=== PATIENT | male | born 1960 | race Caucasian/White ===

== ENCOUNTER 2019-07-04 17:42 | Outpatient (CLI) | payer SELFPAY ==
--- NOTE | 2019-07-04 | XR_ITS ---
WS: [id number] KNEE LEFT TECHNIQUE: 3 views of the left knee CLINICAL INFORMATION: TWISTED KNEE, HEARD POP, PAIN COMPARISON: None. FINDINGS: Left knee is normal in appearance. No evidence of acute fracture dislocation. Small effusion. Hypertr ophic patella. Vascular calcification. XR/XR knee LT 3V* [id number] IMPRESSION: Soft tissue edema with small suprapatellar effusion. No acute fractures
== END 2019-07-04 17:43 | disposition home or self-care (01) ==
PROVIDERS: Family Provider Family Medicine; PCP Family Medicine; Visit Provider Nurse Practitioner Family
DX: Z01.89 Encounter for other specified special examinations (principal)

== ENCOUNTER 2019-09-18 15:45 | Emergency (ER) | payer MEDICAID, SELFPAY | END 2019-09-18 20:21 | disposition admitted as inpatient to this hospital (09) | LOC: ER 09-27 19:25 | PROVIDERS: Emergency Provider Family Medicine; PCP Family Medicine | DX: F10.230 Alcohol dependence with withdrawal, uncomplicated (principal); Y90.7 Blood alcohol level of 200-239 mg/100 ml; J44.9 Chronic obstructive pulmonary disease, unspecified; I25.10 Atherosclerotic heart disease of native coronary artery without angina pectoris; Z86.73 Personal history of transient ischemic attack (TIA), and cerebral infarction without residual deficits; I10 Essential (primary) hypertension; F17.210 Nicotine dependence, cigarettes, uncomplicated | CPT/HCPCS: 12345; 36415; 80053; 80307; 84484; 85025; 96361; 96374; 96375; 99284; 99285; J7030 ==

== ENCOUNTER 2019-09-18 15:45 | Inpatient (IN) | payer MEDICAID, SELFPAY ==
[2019-09-18] VITALS (14 sets, daily range): BP systolic 124–187; BP diastolic 84–114; PULSE 83–115; RESP 14–30; TEMP 36.6–37.1; O2SAT 93–96; BMI 22.6
--- NOTE | 2019-09-18 16:20 | W.ED.PSYCH ---
Documented by User: Drew Hernandez DO 09/19/19 15:37 HPI - Psych General: Chief Complaint: Alcohol Stated Complaint: etoh/SI Time Seen by Provider: 09/18/19 15:46 History of Present Illness: HPI Narrative: 59-year-old male comes the emergency room by EMS he is acutely intoxicated his family insisted that he come in when I asked him why he was here he said he does not really know who was brought in by ambulance at his family's demand. He states he just wants to give up. He does admit to taking several prescription medications not prescribed to him in an effort to make him golf self go to sleep. However he denies being suicidal. When asked him what he would like for us to do today he states he like a few more pills so he can just go to sleep forever. He admits to drinking heavily drinks up to 3 to 4 pints per day. He states and that is actually a decrease for him. He is upset largely because his brother and sister recently diagnosed with cancer. Family was here in the lobby filling out affidavits. MD complaint: suicidal ideation and other (Alcohol abuse) Onset (ago): year(s) Duration: constant History of same: Yes Relieving factors: none Exacerbating factors: none Context: recent alcohol abuse Associated psychiatric symptoms: depression and suicidal ideation Associated symptoms: Reports depression and suicidal ideation; Deny auditory hallucinations, visual hallucinations, delusions, homicidal ideation or racing thoughts Treatments prior to arrival: none If self harm: admits thoughts of self harm, has plan, has acted on plan and intentional overdose Details of plan: Took several doses of Xanax hydroxyzine and sertraline and Prozac and attempt to harm himself stating he wishes to take more. Review of Systems Const: Denies: fever(s), chills, body aches, change in appetite, fatigue or malaise ENMT: Denies: throat pain, ear or mastoid pain, nasal discharge or nasal congestion Card: Denies: chest pain, edema, dyspnea on exertion or orthopnea Resp: Reports: productive cough and other (Per the patient his cough is chronic and is at his baseline.); Denies: dyspnea or non-productive cough GI: Denies: abdominal pain, nausea, vomiting, hematemesis, coffee ground emesis, diarrhea, constipation, bloating, hematochezia or melena : Denies: flank pain, dysuria, urinary frequency or urinary urgency Skin/Breast: Denies: rash or pruritus Psych: Reports: depression and suicidal ideation; Denies: visual hallucinations, auditory hallucinations or homicidal ideation PFSH ED PFSH: Medical History COPD (chronic obstructive pulmonary disease) Coronary artery disease CVA (cerebral vascular accident) Residual left-sided weakness Hypertension Surgical History Post PTCA Social History Smoking and tobacco status: current every day smoker Alcohol intake: current Alcohol intake frequency: 3 or more drinks per day Alcohol type: hard liquor Current gender identity: Male Physical Exam Const: COMMON NORMALS: no acute distress GENERAL APPEARANCE: cooperative and comfortable ORIENTATION/CONSCIOUSNESS: Yes awake, Yes oriented to person, Yes oriented to place and Yes oriented to time HENMT: COMMON NORMALS: normocephalic, atraumatic, external ears normal, EAC's normal, TM's normal bilaterally and Normal nasal mucous membranes and turbinates present HEAD & SCALP: normocephalic and atraumatic NOSE: Normal nasal mucous membranes and turbinates present EXTERNAL EAR: Yes external ears normal EXTERNAL AUDITORY CANAL: EAC's normal TYMPANIC MEMBRANE: TM's normal bilaterally Eye: COMMON NORMALS: Equal, round and reactive pupils present, EOMs intact bilaterally, conjunctivae normal and no scleral icterus CONJUNCTIVA: Yes conjunctivae normal PUPIL: Yes Equal, round and reactive pupils present Neck/C-Spine: COMMON NORMALS: full ROM, no lymphadenopathy, supple and no JVD Lymph: LYMPHATIC: no lymphadenopathy noted and no lymphedema noted Resp: COMMON NORMALS: normal respiratory effort, No retractions, No use of accessory muscles and clear to auscultation bilaterally AUSCULTATION: clear to auscultation bilaterally Cardio: COMMON NORMALS: no JVD, regular rate, regular rhythm and No murmurs present (Cardio) RATE: regular rate RHYTHM: regular rhythm GI: COMMON NORMALS: Soft to palpation and No hepatosplenomegaly present AUSCULTATION: Yes normoactive bowel sounds PALPATION: Yes Soft to palpation, No Tenderness to palpation present (GI), No Guarding due to palpation present (GI) and Yes No hepatosplenomegaly present Extremity: COMMON NORMALS: normal to inspection, capillary refill normal, no clubbing, cyanosis or edema, no calf tenderness and no pedal edema Neuro: SENSORIUM/ORIENTATION: Yes oriented to person, Yes oriented to place and Yes oriented to time Psych: THOUGHT CONTENT: No delusions Skin: COMMON NORMALS: no rashes or lesions noted GENERAL SKIN EXAM: no rashes or lesions noted MDM - Psych MDM Narrative: Medical decision making narrative: Discussed findings with the patient he is expressing intent to harm himself and is quite despondent. He does present to risk himself he is awake and alert at this point he is improving from his acute intoxication. He is becoming hypertensive he was ordered clonidine and hydralazine have discussed with psychiatry. We will admit him. Lab Data: Labs: Lab Results 09/18/19 09/18/19 09/18/19 Range/Units 16:23 16:23 16:23 WBC 4.4 (4.0-10.0) 10^3/ uL RBC 4.17 (4.1-5.3) 10^6/u L Hgb 11.7 (11.7-16.6) g/dL Hct 38.0 L (42.0-52.0) % MCV 91.1 (80-94) fL MCH 28.1 (28.0-34.0) pg MCHC 30.8 (30.0-36.0) g/dL RDW 18.1 H (12.1-15.1) % Plt Count 187 (130-400) 10^3/c mm MPV 9.5 (7.4-10.4) fL Neut % (Auto) 70.7 % Lymph % (Auto) 19.1 % [place] % (Auto) 8.0 % Eos % (Auto) 1.8 % Baso % (Auto) 0.2 % Neut # (Auto) 3.1 (1.8-7.7) 10^3/u L Lymph # (Auto) 0.8 (0.8-4.8) 10^3/u L [place] # (Auto) 0.4 (0.2-0.9) 10^3/u L Eos # (Auto) 0.1 (0.0-0.8) 10^3/u L Baso # (Auto) 0.0 (0.0-0.1) 10^3/u L Nucleated RBC % (a uto) 0 % Nucleated RBCs # 0.0 /100WBC Sodium 147 H (136-145) mmol/L Potassium 3.5 (3.5-5.1) mmol/L Chloride 105 (98-107) mmol/L Carbon Dioxide 27 (22-29) mmol/L Anion Gap 18.5 (5-19) BUN 7 (6-20) mg/dL Creatinine 0.7 (0.7-1.2) mg/dL GFR Calculation 115.4 (90-130) mL/min Glucose 108 (65-115) mg/dL Calculated Osmolal ity 300 H (285-295) mOsm/k g Calcium 8.2 L (8.5-10.5) mg/dL Total Bilirubin 0.2 (0.15-1.2) mg/dL AST 53 H (0-40) U/L ALT 27 (0-41) U/L Alkaline Phosphata se 131 H (40-130) IU/L Troponin T Baselin e 13 (0-15) ng/mL Total Protein 6.8 (6.6-8.7) g/dL Albumin 3.7 (3.5-5.2) g/dL Globulin 3.1 (1.3-4.6) g/dL Salicylates < 0.3 L (3-10) mg/dL Acetaminophen < 5.0 L (10-30) ug/mL Ethyl Alcohol 209 H (0-10) mg/dL Discharge Plan Discharge Patient Disposition: Admitted As Inpatient Admit Provider: Willi Márquez Clinical Impression: Alcohol withdrawal syndrome Qualifiers: Complication of substance-induced condition: uncomplicated Qualified Code(s): F10.230 - Alcohol dependence with withdrawal, uncomplicated Condition: Stable Referrals: Donald Dominguez MD [Primary Care Provider] - Discharge Date/Time: 09/18/19 20:21 Coding Level of Care Code ED Account Support Rep for Chg Fwd Exam Comprehensive Documented by User: Daiana Acosta MD 09/18/19 19:28 HPI - Psych General: Chief Complaint: Alcohol Stated Complaint: etoh/SI Time Seen by Provider: 09/18/19 15:46 PFSH ED PFSH: Medical History COPD (chronic obstructive pulmonary disease) Coronary artery disease CVA (cerebral vascular accident) Residual left-sided weakness Hypertension Surgical History Post PTCA Social History Smoking and tobacco status: current every day smoker Alcohol intake: current Alcohol intake frequency: 3 or more drinks per day Alcohol type: hard liquor Current gender identity: Male MDM - Psych MDM Narrative: Medical decision making narrative: I took patient over from Dr. Lei. Patient originally was planned to be admitted to the psychiatric unit but he started to become hypertensive along with tachycardic and had vomiting. I spoke to patient he does have a history of alcohol withdrawals. I gave patient 2 mg Ativan and he improved and I spoke to hospitalist Dr. Cosme and will admit to the ICU at this time. Lab Data: Labs: Lab Results 09/18/19 09/18/19 09/18/19 Range/Units 16:23 16:23 16:23 WBC 4.4 (4.0-10.0) 10^3/ uL RBC 4.17 (4.1-5.3) 10^6/u L Hgb 11.7 (11.7-16.6) g/dL Hct 38.0 L (42.0-52.0) % MCV 91.1 (80-94) fL MCH 28.1 (28.0-34.0) pg MCHC 30.8 (30.0-36.0) g/dL RDW 18.1 H (12.1-15.1) % Plt Count 187 (130-400) 10^3/c mm MPV 9.5 (7.4-10.4) fL Neut % (Auto) 70.7 % Lymph % (Auto) 19.1 % [place] % (Auto) 8.0 % Eos % (Auto) 1.8 % Baso % (Auto) 0.2 % Neut # (Auto) 3.1 (1.8-7.7) 10^3/u L Lymph # (Auto) 0.8 (0.8-4.8) 10^3/u L [place] # (Auto) 0.4 (0.2-0.9) 10^3/u L Eos # (Auto) 0.1 (0.0-0.8) 10^3/u L Baso # (Auto) 0.0 (0.0-0.1) 10^3/u L Nucleated RBC % (a uto) 0 % Nucleated RBCs # 0.0 /100WBC Sodium 147 H (136-145) mmol/L Potassium 3.5 (3.5-5.1) mmol/L Chloride 105 (98-107) mmol/L Carbon Dioxide 27 (22-29) mmol/L Anion Gap 18.5 (5-19) BUN 7 (6-20) mg/dL Creatinine 0.7 (0.7-1.2) mg/dL GFR Calculation 115.4 (90-130) mL/min Glucose 108 (65-115) mg/dL Calculated Osmolal ity 300 H (285-295) mOsm/k g Calcium 8.2 L (8.5-10.5) mg/dL Total Bilirubin 0.2 (0.15-1.2) mg/dL AST 53 H (0-40) U/L ALT 27 (0-41) U/L Alkaline Phosphata se 131 H (40-130) IU/L Troponin T Baselin e 13 (0-15) ng/mL Total Protein 6.8 (6.6-8.7) g/dL Albumin 3.7 (3.5-5.2) g/dL Globulin 3.1 (1.3-4.6) g/dL Salicylates < 0.3 L (3-10) mg/dL Acetaminophen < 5.0 L (10-30) ug/mL Ethyl Alcohol 209 H (0-10) mg/dL Discharge Plan Discharge Patient Disposition: Admitted As Inpatient Admit Provider: Willi Márqeuz Clinical Impression: Alcohol withdrawal syndrome Qualifiers: Complication of substance-induced condition: uncomplicated Qualified Code(s): F10.230 - Alcohol dependence with withdrawal, uncomplicated Condition: Stable Referrals: Donald Dominguez MD [Primary Care Provider] - Discharge Date/Time: 09/18/19 20:21 Coding Level of Care Code ED Account Support Rep for [facility] Fwd Exam Comprehensive
[2019-09-18 16:31] LABS: Basophils % 0.2 %; Eosinophils # 0.1 10^3/uL (0.0-0.8); Eosinophils % 1.8 %; Hemoglobin 11.7 g/dL (11.7-16.6); Lymphocytes # 0.8 10^3/uL (0.8-4.8); Lymphocytes % 19.1 %; Mean Corpuscular HGB Conc 30.8 g/dL (30.0-36.0); Mean Corpuscular Hemoglobin 28.1 pg (28.0-34.0); Mean Corpuscular Volume 91.1 fL (80-94); Mean Platelet Volume 9.5 fL (7.4-10.4); Monocytes # 0.4 10^3/uL (0.2-0.9); Neutrophils # 3.1 10^3/uL (1.8-7.7); Neutrophils % 70.7 %; Nucleated Red Blood Cells % 0 %; Platelet Count 187 10^3/cmm (130-400); Red Blood Count 4.17 10^6/uL (4.1-5.3); Red Cell Distribution Width 18.1 % (12.1-15.1); White Blood Count 4.4 10^3/uL (4.0-10.0)
[2019-09-18 16:45] LABS: Troponin(5th) Baseline 13 ng/mL (0-15)
[2019-09-18] MEDS: sodium chloride 0.9% 1,000 ML 999 ML IV (16:49)
[2019-09-18 17:08] LABS: Alanine Aminotransferase 27 U/L (0-41); Albumin Level 3.7 g/dL (3.5-5.2); Alcohol Level 209 mg/dL (0-10); Alkaline Phosphatase 131 IU/L (40-130); Anion Gap 18.5 (5-19); Aspartate Amino Transferase 53 U/L (0-40); Blood Urea Nitrogen 7 mg/dL (6-20); Calcium 8.2 mg/dL (8.5-10.5); Carbon Dioxide 27 mmol/L (22-29); Chloride 105 mmol/L (98-107); Globulin 3.1 g/dL (1.3-4.6); Glomerular Filtration Rate 115.4 mL/min (90-130); Glucose 108 mg/dL (65-115); Osmolality Calculated 300 mOsm/kg (285-295); Potassium 3.5 mmol/L (3.5-5.1); Sodium 147 mmol/L (136-145); Total Bilirubin 0.2 mg/dL (0.15-1.2); Total Protein 6.8 g/dL (6.6-8.7)
[2019-09-18 17:26] LABS: Acetaminophen < 5.0 ug/mL (10-30); Salicylate < 0.3 mg/dL (3-10)
--- NOTE | 2019-09-18 18:16 | ECG_ITS ---
Measurements Intervals [place] Rate: 87 P: 73 MD: 148 QRS: 40 QRSD: 89 T: 54 QT: 373 QTc: 450 SINUS RHYTHM Compared to ECG 12/14/2018 01:37:02 No significant changes Electronically Signed On 09-18-2019 20:56:16 CDT by Nancy Jarquin M.D. [id number]
[2019-09-18] MEDS: hyDRALAzine 20 mg/mL INJ 1 mL IVP (18:22)
[2019-09-18 18:32] LABS: Troponin 5 2HR 12.97 ng/mL (0-15); Troponin 5 2HR Delta -0.03 ABS# (0-10)
[2019-09-18] MEDS: LORazepam 2 mg/mL INJ 1 mL IVP ×2 (18:34→19:04)
--- NOTE | 2019-09-18 19:06 | PC.NURSE ---
PATIENT BEGAN TO GET SICK,HR INCREASED AND STARTED TO VOMIT, EMD INFORMED AND ORDERS RECEIVED
--- NOTE | 2019-09-18 21:16 | P.HP_ITS ---
Providers/Chief Complaint Admitting Physician: Willi Márquez Primary Care Provider: Donald Dominguez MD Chief Complaint: etoh History of Present Illness Oscar Baumann is a 59 year old male with PMh anxiety, alcohol abuse disorder recently care established with [facility] with increasing concerns from family about suicidal behavior. he was brought to ER today with reported history of int entional overdose wherein he took several doses of Xanax hydroxyzine and sertraline and Prozac and attempt to harm himself. above history obtained by review of ER notes. He is currently sedated aftre having received 4mg Ativan in the ER and is unable/unwilling to provide further details. Listed family number goes to [facility]. He was originally planned for admission to NPU, but while in the Er started exhibiting signs of withdrawal after being acutely intoxicated earlier. he was noted to have tremors and elevated BP > SBP 180 for hwich he received ativan, hydralazine and clonidine with improvement. Diagnostics in ER notable for alcohol level 209, Na 147 , AST 53 and AL 131 Review of Systems General: Reports: 10 or more systems reviewed and unremarkable except in HPI and below Const: Denies: fever(s), chills or body aches Eyes: Denies: change in vision, blurry vision or photophobia ENMT: Reports: hoarseness; Denies: throat pain, enlarged tonsils, odynophagia or nasal congestion Card: Denies: chest pain, palpitations, irregular heart rhythm, edema, swelling of feet/ankles, lightheadedness, pre-syncope, dyspnea on exertion or orthopnea Resp: Denies: dyspnea, productive cough, non-productive cough, wheezing, stridor, pain on inspiration, change in phlegm color, hemoptysis or chest congestion GI: Denies: abdominal pain, nausea, vomiting, hematemesis, coffee ground emesis, dysphagia, heartburn, diarrhea, constipation, GI cramping, change in stool character, hematochezia or melena : Denies: flank pain, dysuria, urinary frequency, urinary urgency, urinary hesitancy or hematuria Musc: Denies: neck pain, back pain, extremity pain, joint swelling, joint warmth or deformity Neuro: Denies: headache(s), numbness in extremities, weakness in extremities, sensory changes, difficulty walking, frequent falls, dizziness, vertigo, behavioral changes, Slurred speech present or seizure-like activity Psych: Denies: anxiety, depression, suicidal ideation or homicidal ideation Endo: Denies: polyuria, polydipsia, tired all the time, cold intolerance or hot flashes Kenny/Lymph: Denies: easy bruising or easy bleeding Medications/Allergies Home Medications Medication Instructions Recorded Confirmed Last Taken Type aspirin 81 mg tablet,delayed 81 mg PO QDAY 90 Days #90 tab 05/29/19 09/18/19 Unknown Rx release Allergies Allergy/AdvReac Type Severity Reaction Status Date / Time hydromorphone [From Dilaudid] Allergy hallucinati Verified 05/29/19 10:57 on PFSH Acute PFSH: Medical History COPD (chronic obstructive pulmonary disease) Coronary artery disease CVA (cerebral vascular accident) Residual left-sided weakness Hypertension Surgical History Post PTCA Social History Smoking and tobacco status: current every day smoker Alcohol intake: current Alcohol intake frequency: 3 or more drinks per day Alcohol type: hard liquor Alcohol use comment: Patient drinks several pints per day he estimated 3 to 4 pints per day stating that is actually having cut down on what he used to drink Current gender identity: Male Vitals/I&O/Wt Last Vital Signs Temp 98.8 F 09/18/19 21:02 Pulse 99 09/18/19 20:45 Resp 20 H 09/18/19 20:45 BP 150/94 09/18/19 20:45 Pulse Ox 95 09/18/19 20:45 Weight last 48 hrs Weight 63.503 kg Physical Exam Narrative: EXAM NARRATIVE: GEN: Awake on calling name, otherwise calm and preferring to sleep CVS: S1S2 N RS: CTA B/L Abd: Soft, nt/nd , bs+ POLYTECHNIC REGISTRAR: no focal neuro deficits EXt: no rashes, petechiae Data : 09/18/19 16:23 09/18/19 16:23 A&P Assessment and plan (1) Alcohol withdrawal syndrome: Status: Acute Qualifiers: Complication of substance-induced condition: uncomplicated Qualified Code(s): F10.230 - Alcohol dependence with withdrawal, uncomplicated (2) Coronary artery disease: Status: Acute (3) Hypertension: Status: Acute (4) COPD (chronic obstructive pulmonary disease): Status: Acute (5) Alcohol intoxication: Status: Acute (6) Suicide attempt: Status: Acute Additional A&P Information Admit to ICU for alcohol withdrawal -Initially presnetd with acute alcohol intoxcation, now noted to have signs of withdrawal in the ED with HTN, tremors, agitation - will monitor closely for development of serotonin syndrome given h/o taking multiple medications earlier today - continuous telemetery and qtc monitoring , last being 433 msec -continuous pulse ox, aspiration, sizure and fall precautions - D51/2 NS with added thiamine and multivitamin - NPO for now except meds and ice chips - CIWA checks per protocol, ativan prn, also started librium standing dose which can be tapered during admission - NPU consult and transfer when stable for attempted suicide, on 96 hr hold. Sitter at bedside - hydralazine prn for HTN for now. Listed PMH states patient has HTN, however unable to see if he is on any medications at home. Full code DVt ppx: heparin Attestations Medical Necessity Statement*: anticipate >2midnight admission for management of alcohol withdrawal, 96 hr hold for suicide attempt Coding Level of Care Code Acute Casino Attendant for momo Villegas Diagnoses Alcohol withdrawal syndrome F10.230 Complication of substance-induced condition: uncomplicated Coronary artery disease I25.10 Hypertension I10 COPD (chronic obstructive pulmonary disease) J44.9 Alcohol intoxication F10.929 Suicide attempt T14.91XA
[2019-09-18] MEDS: chlordiazePOXIDE 25 mg Capsule 50 MG PO (21:47)
[2019-09-18] MEDS: hyDRALAzine 20 mg/mL INJ 1 mL 10 MG IVP (21:48)
[2019-09-18] MEDS: dextrose 5%-sod chloride 0.45% 1,000 ML 75 ML IV (21:48)
[2019-09-18] MEDS: heparin 5,000 unit/mL INJ 1 mL 5000 UNIT SUBCUT (21:48)
[2019-09-18] MEDS: thiamine 100 mg Tablet PO (21:48)
--- NOTE | 2019-09-18 22:16 | ECG_ITS ---
Measurements Intervals [place] Rate: 78 P: 64 [place]: 146 QRS: 44 QRSD: 86 T: 54 QT: 379 QTc: 433 SINUS RHYTHM Compared to ECG 12/14/2018 01:37:02 No significant changes Electronically Signed On 09-18-2019 20:56:00 CDT by Nancy Jarquin M.D. [id number]
[2019-09-18 22:54] LABS: Troponin 5 6HR 28.44 ng/mL (0-15)
[2019-09-18 22:56] LABS: Troponin 5 6HR Delta 15.44 ng/L (0-12)
[2019-09-19] VITALS (34 sets, daily range): BP systolic 89–205; BP diastolic 58–128; PULSE 63–107; RESP 16–25; TEMP 36.7–36.9; O2SAT 93–99
--- NOTE | 2019-09-19 02:20 | PC.NURSE ---
dr hammond notified of blood pressure being elevated, >180 sys. It was not time for hydralizine, dr gave order for po amlodipine 10 mg.
[2019-09-19] MEDS: chlordiazePOXIDE 25 mg Capsule 50 MG PO ×2 (02:52→09:33)
[2019-09-19] MEDS: amlodipine 5 mg Tablet 10 MG PO (02:52)
--- NOTE | 2019-09-19 05:03 | PC.NURSE ---
dr hammond was notified of increase in troponin.
[2019-09-19 05:33] LABS: Basophils % 0.4 %; Eosinophils # 0.1 10^3/uL (0.0-0.8); Eosinophils % 1.3 %; Hemoglobin 11.2 g/dL (11.7-16.6); Lymphocytes % 21.7 %; Mean Corpuscular HGB Conc 31.1 g/dL (30.0-36.0); Mean Corpuscular Hemoglobin 27.8 pg (28.0-34.0); Mean Corpuscular Volume 89.3 fL (80-94); Mean Platelet Volume 10.6 fL (7.4-10.4); Monocytes # 0.3 10^3/uL (0.2-0.9); Monocytes % 6.7 %; Neutrophils # 3.1 10^3/uL (1.8-7.7); Neutrophils % 69.5 %; Nucleated Red Blood Cells % 0 %; Platelet Count 175 10^3/cmm (130-400); Red Blood Count 4.03 10^6/uL (4.1-5.3); Red Cell Distribution Width 17.8 % (12.1-15.1); White Blood Count 4.5 10^3/uL (4.0-10.0)
[2019-09-19 05:55] LABS: INR 1.09 (0.8-1.2)
[2019-09-19 05:58] LABS: Alanine Aminotransferase 24 U/L (0-41); Albumin Level 3.4 g/dL (3.5-5.2); Alkaline Phosphatase 134 IU/L (40-130); Anion Gap 15.2 (5-19); Aspartate Amino Transferase 44 U/L (0-40); Blood Urea Nitrogen 8 mg/dL (6-20); Calcium 8.6 mg/dL (8.5-10.5); Carbon Dioxide 26 mmol/L (22-29); Chloride 100 mmol/L (98-107); Globulin 3.5 g/dL (1.3-4.6); Glomerular Filtration Rate 170.2 mL/min (90-130); Glucose 111 mg/dL (65-115); Osmolality Calculated 283 mOsm/kg (285-295); Potassium 3.2 mmol/L (3.5-5.1); Sodium 138 mmol/L (136-145); Total Bilirubin 0.4 mg/dL (0.15-1.2); Total Protein 6.9 g/dL (6.6-8.7)
--- NOTE | 2019-09-19 06:15 | PC.NURSE ---
SHIFT SUMMARY PT HAS REMAINED ALERT AND ORIENTATED. AT TIMES CONFUSED. PT HAS NOT NEEDED ATIVAN PER CIWA. PT HAS RESTED AND AWAKENED TO VERBAL STIMULUS. SITTER REMAINS AT BEDSIDE. IV REMAINS PATENT. PT HAS HAD NO COMPLAINTS. DR GOULD GAVE ORDER TO PUT IN BREATHING TXS, PT HAS NOT NEEDED ANY THUS FAR. PT HAS WHEEZES AT TIMES.
[2019-09-19 06:33] LABS: Troponin(5th) Baseline 136 ng/mL (0-15)
--- NOTE | 2019-09-19 06:46 | PC.NURSE ---
dr hammond notified of troponin
--- NOTE | 2019-09-19 06:51 | PC.NURSE ---
dr hammond gave order for 325mg asa for 136 troponin.
--- NOTE | 2019-09-19 07:03 | PC.NURSE ---
dr hammond also ordered a ekg to be taken on pt since increase in troponin.
--- NOTE | 2019-09-19 07:05 | ECG_ITS ---
Measurements Intervals [place] Rate: 84 P: 77 [place]: 143 QRS: 70 QRSD: 84 T: 73 QT: 376 QTc: 447 SINUS RHYTHM Compared to ECG 09/18/2019 18:04:25 No significant changes Electronically Signed On 09-19-2019 15:43:40 CDT by Nahid Jimenez M.D. [email or web address]
[2019-09-19] MEDS: aspirin 325 mg Tablet PO (07:06)
[2019-09-19] MEDS: hyDRALAzine 20 mg/mL INJ 1 mL 10 MG IVP (07:32)
[2019-09-19 07:55] LABS: Chol HDL Ratio 6.44 mg/dL (1.0-5.00); Cholesterol 206 mg/dL (0-200); HDL Cholesterol 32 mg/dL (60-100); LDL Cholesterol Calculated 145 mg/dL (50-129); LDL HDL Ratio 4.53 RATIO (0.00-3.22); Triglycerides 143 mg/dL (0-150)
[2019-09-19 08:06] LABS: Troponin 5 2HR 147.5 ng/mL (0-15); Troponin 5 2HR Delta 11.5 ABS# (0-10)
[2019-09-19] MEDS: folic acid 1 mg Tablet PO (09:32)
[2019-09-19] MEDS: multivitamin therapeutic Tablet 1 TAB PO (09:33)
[2019-09-19] MEDS: thiamine 100 mg Tablet PO (09:33)
[2019-09-19] MEDS: heparin 5,000 unit/mL INJ 1 mL 5000 UNIT SUBCUT ×2 (09:33→18:28)
[2019-09-19] MEDS: dextrose 5%-sod chloride 0.45% 1,000 ML 75 ML IV (09:36)
[2019-09-19] MEDS: isosorbide mononitrate ER 30 mg Tablet PO (10:54)
[2019-09-19] MEDS: lisinopril 20 mg Tablet PO (10:54)
[2019-09-19] MEDS: clopidogrel 75 mg Tablet PO (10:54)
[2019-09-19] MEDS: metoprolol tartrate 25 mg Tablet PO (10:54)
--- NOTE | 2019-09-19 11:15 | P.PN_ITS ---
Vitals/I&O/Wt Last Vital Signs Temp 98.4 F 09/19/19 05:37 Pulse 93 09/19/19 04:00 Resp 25 H 09/19/19 00:30 BP 178/111 09/19/19 04:00 Pulse Ox 97 09/19/19 04:00 09/18/19 09/19/19 09/19/19 22:59 06:59 14:59 Intake Total 120 / 120 300 / 420 885 / 885 Output Total 300 / 300 300 / 600 780 / 780 Balance -180 / -180 0 / -180 105 / 105 Weight last 48 hrs Weight 63.503 kg Data : 09/19/19 05:00 09/19/19 05:00 A&P Assessment and plan (1) Alcohol withdrawal syndrome: Status: Acute Qualifiers: Complication of substance-induced condition: uncomplicated Qualified Code(s): F10.230 - Alcohol dependence with withdrawal, uncomplicated (2) Coronary artery disease: Status: Acute (3) Hypertension: Status: Acute (4) COPD (chronic obstructive pulmonary disease): Status: Acute (5) Alcohol intoxication: Status: Acute (6) Suicide attempt: Status: Acute Additional A&P Information Admit to ICU for alcohol withdrawal -Initially presnetd with acute alcohol intoxcation, now noted to have signs of withdrawal in the ED with HTN, tremors, agitation - will monitor closely for development of serotonin syndrome given h/o taking multiple medications earlier today - continuous telemetery and qtc monitoring , last being 433 msec -continuous pulse ox, aspiration, sizure and fall precautions - D51/2 NS with added thiamine and multivitamin - NPO for now except meds and ice chips - CIWA checks per protocol, ativan prn, also started librium standing dose which can be tapered during admission - NPU consult and transfer when stable for attempted suicide, on 96 hr hold. Sitter at bedside - hydralazine prn for HTN for now. Listed PMH states patient has HTN, however un able to see if he is on any medications at home. Full code DVt ppx: heparin Coding Level of Care Code Acute Meteorological Equipment Repairer for Chg Fwd Diagnoses Alcohol withdrawal syndrome F10.230 Complication of substance-induced condition: uncomplicated Coronary artery disease I25.10 Hypertension I10 COPD (chronic obstructive pulmonary disease) J44.9 Alcohol intoxication F10.929 Suicide attempt T14.91XA
--- NOTE | 2019-09-19 11:22 | USCV_ITS ---
Oscar Baumann Age: 59 Gender: M : 1960 Exam Date: 09/19/2019 13:00 Ordering Phys: Jeff Batista MD Technologist: Lindsay Abreu Exam Location: [facility] – [place] Indication: UNSTABLE ANGINA BP: 115 / 78 HR: 64 Rhythm: Sinus Technical Quality: Adequate MEASUREMENTS (Male / Female) Normal Values 2D ECHO LV Diastolic Diameter PLAX 3.7 cm 4.2 - 5.9 / 3.9 - 5.3 cm LV Systolic Diameter PLAX 2.2 cm LV Chamber Size 2.9 cm IVS Diastolic Thickness 1.5 cm 0.6 - 1.0 / 0.6 - 0.9 cm IVS Systolic Thickness 1.8 cm LVPW Diastolic Thickness 1.5 cm 0.6 - 1.0 / 0.6 - 0.9 cm LVPW Systolic Thickness 1.4 cm RV Chamber Size 2.5 cm LVOT Diameter 2.0 cm LV Ejection Fraction 2D Teich 70.9 % LV Ejection Fraction MOD 2C 60.2 % LV Ejection Fraction 2C AL 61.8 % LA Diameter 3.3 cm LA Width 2.7 cm LA Height 4.1 cm RA Width 3.8 cm RA Height 4.8 cm Aorta at Sinotubular Diameter 2.9 cm M-MODE LV Diastolic Diameter MM 4.0 cm 4.2 - 5.9 / 3.9 - 5.3 cm LV Systolic Diameter MM 2.5 cm LV Ejection Fraction MM Teich 69.3 % IVS Diastolic Thickness MM 1.0 cm 0.6 - 1.0 / 0.6 - 0.9 cm IVS Systolic Thickness MM 1.2 cm LVPW Diastolic Thickness MM 0.9 cm 0.6 - 1.0 / 0.6 - 0.9 cm LVPW Systolic Thickness MM 1.5 cm RV Diastolic Diameter MM 1.5 cm Aortic Annulus Diameter 3.2 cm LA Ao Ratio MM 1.1 MV E Point Septal Separation 0.4 cm DOPPLER AV Peak Velocity 139.0 cm/s LVOT Peak Velocity 95.0 cm/s AV Area Cont Eq vti 2.8 cm squared AV Area Cont Eq pk 2.1 cm squared MV Area PHT 2.7 cm squared Mitral E to A Ratio 0.8 MV E' Velocity 10.0 cm/s Mitral E to MV E' Ratio 6.7 Mitral E to LV E' Lateral Ratio 5.7 Mitral E to LV E' Septal Ratio 7.9 TR Peak Velocity 209.2 cm/s TR Peak Gradient 17.5 mmHg TR Mean Velocity 161.1 cm/s TR Mean Gradient 11.4 mmHg TR Velocity Time Integral 63.1 cm TV Peak E Velocity 45.0 cm/s PV Peak Velocity 44.0 cm/s RV Acceleration Time 0.1 s RV Ejection Time 0.3 s RV AcT/ET 0.5 FINDINGS Left Ventricle Normal left ventricular cavity size. Normal left ventricular systolic function. No regional wall motion abnormalities. Left ventricular ejection fraction is estimated at 63 %. Grade I/IV diastolic dysfunction (abnormal relaxation filling pattern), normal to mildly elevated filling pressures. Right Ventricle The right ventricle is normal in size and function. RVSP could not be calculated due to incomplete tricuspid regurgitation velocity profile. Right Atrium The right atrium is normal in size. Left Atrium The left atrium is normal in size. Mitral Valve Structurally normal mitral valve without significant stenosis or prolapse. There is no mitral regurgitation. Aortic Valve Moderate aortic valve calcification. No aortic valve stenosis. Trace aortic valve regurgitation. Tricuspid Valve Trace to mild tricuspid valve regurgitation. Pulmonic Valve Structurally normal pulmonic valve without significant stenosis. There is no pulmonic regurgitation. Pericardium Normal pericardium without effusion. Aorta Normal ascending aorta dimension. CONCLUSIONS 1-Normal left ventricular cavity size. Normal left ventricular systolic function. No regional wall motion abnormalities. Left ventricular ejection fraction is estimated at 63 %. Grade I/IV diastolic dysfunction (abnormal relaxation filling pattern), normal to mildly elevated filling pressures. 2-Moderate aortic valve calcification. No aortic valve stenosis. Trace aortic valve regurgitation. 3-Structurally normal mitral valve without significant stenosis or prolapse. There is no mitral regurgitation. 4-Trace to mild tricuspid valve regurgitation. 5-There is no pericardial effusion. 6-Right atrial pressure is around 5 mm of mercury. 7-No significant change since the prior echocardiogram study of 06/19/2017. Israel Yeager MD (Electronically Signed) Final Date: 19 Sep 2019 17:51 S
[2019-09-19 11:40] LABS: Lipase 377 U/L (13-60)
--- NOTE | 2019-09-19 12:07 | P.CONIM_ITS ---
Providers/Reason for Consult Consulting Physican/Specialty*: Willi Márquez M.D./Psychiatry Reason for Consult*: Patient had been drinking heavily and verbalizing suicidal ideation. Attending Physician: Jeff Batista MD Primary Care Provider: Donald Dominguez MD Psych Consult HPI History of Present Illness Oscar Baumann is a 59 year old male with PMh anxiety, alcohol abuse disorder recently care established with [facility] with increasing concerns from family about suicidal behavior. The ED physician's report indicates that the patient took an intentional overdose of a cocktail of Xanax, hydroxyzine, sertraline and Prozac in an attempt to harm himself. He is currently sedated having had his hypertension pharmacologically managed listed family number goes to [facility]. He was originally planned for admission to [facility], but while in the Er started exhibiting signs of withdrawal after being acutely intoxicated earlier. he was noted to have tremors and elevated BP > SBP 180 for hwich he received ativan, hydralazine and clonidine with improvement. Diagnostics in ER notable for alcohol level 209, Na 147 , AST 53 and AL 131 Meds Current Medications: Current Medications Generic Name Dose Route Start Last Admin Trade Name Freq PRN Reason Stop Dose Admin Clopidogrel Bisulf ate 75 mg 09/19/19 10:30 09/19/19 10:54 Plavix PO 75 mg DAILY VINNIE Administration Fluoxetine HCl 20 mg 09/19/19 10:30 09/19/19 10:55 Prozac PO Not Given DAILY VINNIE Folic Acid 1 mg 09/19/19 09:00 09/19/19 09:32 Folic Acid PO 1 mg DAILY VINNIE Administration Hydralazine HCl 10 mg 09/18/19 21:07 09/19/19 07:32 Apresoline IVP 10 mg Q6H PRN Administration SBP>180 Isosorbide Mononit rate 30 mg 09/19/19 10:30 09/19/19 10:54 Imdur PO 30 mg DAILY VINNIE Administration Lisinopril 20 mg 09/19/19 10:45 09/19/19 10:54 Prinivil PO 20 mg DAILY VINNIE Administration Metoprolol Tartrat e 25 mg 09/19/19 10:30 09/19/19 10:54 Lopressor PO 25 mg BID VINNIE Administration Multivitamins Ther apeutic 1 tab 09/19/19 09:00 09/19/19 09:33 Multivitamin Tab PO 1 tab DAILY VINNIE Administration Thiamine Mononitra te 100 mg 09/19/19 09:00 09/19/19 09:33 Vitamin B-1 PO 100 mg DAILY VINNIE Administration PFS [facility] PFSH: Medical History COPD (chronic obstructive pulmonary disease) Coronary artery disease CVA (cerebral vascular accident) Residual left-sided weakness Hypertension Surgical History Post PTCA Social History Smoking and tobacco status: current every day smoker Alcohol intake: current Alcohol intake frequency: 3 or more drinks per day Alcohol type: hard liquor Current gender identity: Male Mental Status Exam MSE Comments: This is a 59-year-old male who looks older than his stated age. He can be aroused. He says he is hungry and I explained that he has a Cardiologic tests coming up. He is refused and is competent, per my assessment today, to decide on his health care. Mood is irritable and affect is tense. Thought processes are integrated and free of any racing, blocking or looseness of association. Speech is of normal rate and volume, without dysarthria, aprosody or pressure. There is no evidence of psychosis, such as but not limited to hallucinations, delusions, ideas of reference, etc. Patient denies suicidal or homicidal ideation, plan or intent at the moment. Vitals/I&O/Wt Last Vital Signs Temp 98.4 F 09/19/19 05:37 Pulse 93 09/19/19 04:00 Resp 25 H 09/19/19 00:30 BP 178/111 09/19/19 04:00 Pulse Ox 97 09/19/19 04:00 09/18/19 09/19/19 09/19/19 23:59 07:59 15:59 Intake Total 642 053 9203.25 Output Total 300 300 780 Balance -180 0 241.25 Weight last 48 hrs Weight 140 lb A&P Assessment and plan (1) Suicide attempt: Monitor for safety. Supportive counseling, millieu, pharmacotherapy within the limits of Cardiologic parameters, and transfer to the [facility] for inpatient treatment. Follow-up at [facility] as had been intended by the family. Status: Acute (2) Alcohol withdrawal syndrome: Consultation with the patient's nurse indicates that he has not needed any Lorazepam as his withdrawal has been relatively benign. Status: Acute Qualifiers: Complication of substance-induced condition: uncomplicated Qualified Code(s): F10.230 - Alcohol dependence with withdrawal, uncomplicated (3) Coronary artery disease: The patient was to have a stress test, which he declines. He says he has had a lot of them. Status: Acute (4) Hypertension: Pharmacotherapy intervention has got her down to as low as 120s over 74. Status: Acute (5) COPD (chronic obstructive pulmonary disease): Smoking cessation and counseling Status: Acute Attestations [facility] Medical Necessity Statement*: This is a complex case with Cardiologic elements. I anticipate 5-7 nights hospitalization. Time Spent in Patient Care: Greater than 35 minutes (>than 50% of time spent in counselling and/or direct pt care on unit) . 80 minutes Coding Level of Care Code Acute Cigar Roller for [facility] Fwd Diagnoses Suicide attempt T14.91XA Alcohol withdrawal syndrome F10.230 Complication of substance-induced condition: uncomplicated Coronary artery disease I25.10 Hypertension I10 COPD (chronic obstructive pulmonary disease) J44.9
--- NOTE | 2019-09-19 13:10 | PM.PN ---
Subjective Subjective: Interval history: Admitted overnight. H&P and labs noted. Called the pharmacy and patient's primary care physician to get patient's medication list. Since patient has been very noncompliant. Overnight patient's troponins have been rising but patient denies of having any chest pain, nausea, vomiting, palpitations, diaphoresis, headache, dizziness, tremors. Patient has not received any Ativan as per the nurse. Blood pressures over the night have been on the higher side. Vitals/I&O/Wt Last Vital Signs Temp 98.4 F 09/19/19 05:37 Pulse 85 09/19/19 12:00 Resp 25 H 09/19/19 00:30 BP 113/73 09/19/19 12:00 Pulse Ox 98 09/19/19 12:00 09/18/19 09/19/19 09/19/19 22:59 06:59 14:59 Intake Total 120 / 120 300 / 420 1021.25 / 1021.25 Output Total 300 / 300 300 / 600 780 / 780 Balance -180 / -180 0 / -180 241.25 / 241.25 Weight last 48 hrs Weight 63.503 kg Physical Exam Narrative: EXAM NARRATIVE: General: No acute distress, AO x3, CIWA?2 HEENT: PERRLA, pupils bilaterally equal and reactive Chest: Normal vesicular breath sounds, no added sounds, equal good air entry bilaterally CVS: S1-S2 regular, no murmurs, no tachycardia, no gallops, no rubs Abdomen: Soft, nontender, no organomegaly, bowel sounds present Neuro: No focal deficits, no facial deformity, AO x3, power 5/5 in all limbs Data : 09/19/19 05:00 09/19/19 05:00 A&P Assessment and plan (1) Drug overdose: Status: Acute (2) Suicide attempt: Status: Acute (3) Alcohol intoxication: Status: Acute (4) Alcohol withdrawal syndrome: Status: Acute Qualifiers: Complication of substance-induced condition: uncomplicated Qualified Code(s): F10.230 - Alcohol dependence with withdrawal, uncomplicated (5) Coronary artery disease: Status: Acute (6) COPD (chronic obstructive pulmonary disease): Status: Acute (7) Hypertension: Status: Acute (8) Hypertensive urgency: Status: Acute (9) Non-compliant behavior: Status: Acute Additional A&P Information Drug overdose/suicide attempt/alcoholic intoxication: Patient is on 96-hour hold. Hold off on home dose of Prozac for now. 1 one-to-one sitter Alcohol withdrawal: CIWA?2 right now. Continue with Ativan as per CIWA protocol. 2 mg Ativan every 2 hours IV as needed. We will decrease Librium to 25 every 6 hourly as patient CIWA is low. Continue with folic acid, thiamine. CAD: Patient has history of PCI to LAD in 2013. Repeat stress in 2016 was negative for any active ischemia. Last echocardiogram in the system from 2018 showed a normal EF of 60% with no regional wall motion abnormality. Overnight patient's troponin have risen from 7 at baseline to 147 which was checked earlier this morning. Patient remained chest pain-free. Lipid panel results appreciated. Restart home medications. Aspirin 81 mg, Plavix 75 mg, statin 80 mg, Imdur 30 mg daily. Start patient on beta-junie Lopressor at 25 mg twice daily. Case discussed with Dr. Yeager. Unfortunately given the fact that patient is extremely noncompliant to medications with this admission because of suicide attempt patient would be a poor candidate for vascularization as post PCI patient would need to be on medication for sure otherwise patient can have in-stent thrombosis. For now we will start patient with echocardiogram. If any abnormality in echocardiogram such as regional wall motion abnormality or reduced EF will discuss with Dr. Yeager regarding possibility of stress test. Troponin elevation most likely because of type II ND from severely elevated blood pressures overnight. Hypertensive urgency: Patient extremely noncompliant. Overnight blood pressures have been as high as 200 systolic. Start patient's home medications of Imdur, lisinopril. We will monitor blood pressures. History of pancreatitis: Check lipase. Restart home medication of Zenpep thousand 1000 p.o. with meals. COPD: We will start patient on duo nebs, Advair. Patient does not need any steroids for now. Start patient on cardiac diet. Once stable from cardiac point of view patient can be transferred to [facility]. Full code DVt ppx: heparin Attestations Medical Necessity Statement*: Alcohol intoxication, suicide attempt, elevated troponins, hypertensive urgency Time Spent in Patient Care: Greater than 35 minutes (>than 50% of time spent in counselling and/or direct pt care on unit). Coding Level of Care Code Acute Slotter Operator Helper for [facility] Diagnoses Drug overdose T50.901A Suicide attempt T14.91XA Alcohol intoxication F10.929 Alcohol withdrawal syndrome F10.230 Complication of substance-induced condition: uncomplicated Coronary artery disease I25.10 COPD (chronic obstructive pulmonary disease) J44.9 Hypertension I10 Hypertensive urgency I16.0 Non-compliant behavior R46.89
[2019-09-19] MEDS: ondansetron 2 mg/ML SDV 2 mL 4 MG IVP (15:11)
--- NOTE | 2019-09-19 16:46 | PC.NURSE ---
Holding Librium until pt's nausea subsides.
--- NOTE | 2019-09-19 18:15 | PC.NURSE ---
Dr Batista notified of pt's BP of 101/82 with next Metoprolol dose due. 1800 dose held.
[2019-09-19] MEDS: chlordiazePOXIDE 25 mg Capsule PO ×2 (18:27→22:52)
[2019-09-19] MEDS: pantoprazole DR 40 mg Tablet PO (18:27)
[2019-09-19] MEDS: lipase-protease-amylase Capsule 1 EACH PO (18:27)
[2019-09-19] MEDS: atorvastatin 40 mg Tablet 80 MG PO (22:52)
[2019-09-20] VITALS (11 sets, daily range): BP systolic 99–153; BP diastolic 59–104; PULSE 73–83; RESP 16–21; TEMP 36.6–37.1; O2SAT 92–98
[2019-09-20] MEDS: heparin 5,000 unit/mL INJ 1 mL 5000 UNIT SUBCUT ×2 (02:34→09:33)
[2019-09-20] MEDS: chlordiazePOXIDE 25 mg Capsule PO ×3 (03:40→17:14)
[2019-09-20 04:33] LABS: Basophils % 0.2 %; Eosinophils # 0.1 10^3/uL (0.0-0.8); Eosinophils % 1.8 %; Hematocrit 36.6 % (42.0-52.0); Hemoglobin 11.2 g/dL (11.7-16.6); Lymphocytes # 0.8 10^3/uL (0.8-4.8); Lymphocytes % 17.3 %; Mean Corpuscular HGB Conc 30.6 g/dL (30.0-36.0); Mean Corpuscular Hemoglobin 27.6 pg (28.0-34.0); Mean Corpuscular Volume 90.1 fL (80-94); Mean Platelet Volume 10.8 fL (7.4-10.4); Monocytes # 0.3 10^3/uL (0.2-0.9); Monocytes % 6.2 %; Neutrophils # 3.4 10^3/uL (1.8-7.7); Neutrophils % 74.3 %; Nucleated Red Blood Cells % 0 %; Platelet Count 160 10^3/cmm (130-400); Red Blood Count 4.06 10^6/uL (4.1-5.3); Red Cell Distribution Width 17.4 % (12.1-15.1); White Blood Count 4.5 10^3/uL (4.0-10.0)
[2019-09-20 04:55] LABS: Alanine Aminotransferase 19 U/L (0-41); Albumin Level 3.3 g/dL (3.5-5.2); Alkaline Phosphatase 136 IU/L (40-130); Anion Gap 13.3 (5-19); Aspartate Amino Transferase 29 U/L (0-40); Blood Urea Nitrogen 10 mg/dL (6-20); Carbon Dioxide 27 mmol/L (22-29); Chloride 99 mmol/L (98-107); Globulin 3.6 g/dL (1.3-4.6); Glomerular Filtration Rate 115.4 mL/min (90-130); Glucose 121 mg/dL (65-115); Osmolality Calculated 279 mOsm/kg (285-295); Potassium 3.3 mmol/L (3.5-5.1); Sodium 136 mmol/L (136-145); Total Bilirubin 0.4 mg/dL (0.15-1.2); Total Protein 6.9 g/dL (6.6-8.7)
[2019-09-20 07:28] LABS: Glucose Point of Care 261 mg/dL (70-110)
--- NOTE | 2019-09-20 07:51 | PC.RESP ---
PT. REFUSED SVN
[2019-09-20] MEDS: aspirin 81 mg EC Tablet PO (09:30)
[2019-09-20] MEDS: metoprolol tartrate 25 mg Tablet PO ×2 (09:31→17:14)
[2019-09-20] MEDS: multivitamin therapeutic Tablet 1 TAB PO (09:31)
[2019-09-20] MEDS: lipase-protease-amylase Capsule 1 EACH PO ×3 (09:31→17:14)
[2019-09-20] MEDS: lisinopril 20 mg Tablet PO (09:31)
[2019-09-20] MEDS: folic acid 1 mg Tablet PO (09:31)
[2019-09-20] MEDS: pantoprazole DR 40 mg Tablet PO ×2 (09:31→17:14)
[2019-09-20] MEDS: isosorbide mononitrate ER 30 mg Tablet PO (09:32)
[2019-09-20] MEDS: clopidogrel 75 mg Tablet PO (09:32)
[2019-09-20] MEDS: thiamine 100 mg Tablet PO (09:33)
--- NOTE | 2019-09-20 11:45 | PM.PN ---
Subjective Subjective: Interval history: Events overnight. Labs and vitals noted. Patient's blood pressure is a lot better. On examination patient is sitting comfortably in bed. Having good conversation. Denies any nausea, vomiting, chest pain, dizziness, palpitations, difficulty in breathing. He states his breathing is improved quite a lot after using nebulizer. Vitals/I&O/Wt Last Vital Signs Temp 98.1 F 09/19/19 19:00 Pulse 83 09/20/19 09:00 Resp 16 09/20/19 07:49 BP 111/73 09/20/19 09:00 Pulse Ox 93 09/20/19 09:00 09/19/19 09/20/19 09/20/19 22:59 06:59 14:59 Intake Total 480 / 1501.25 300 / 1801.25 240 / 240 Output Total 225 / 1005 250 / 250 Balance 480 / 721.25 75 / 796.25 -10 / -10 Weight last 48 hrs Weight 63.503 kg Physical Exam Narrative: EXAM NARRATIVE: General: No acute distress, AO x3, CIWA?2 HEENT: PERRLA, pupils bilaterally equal and reactive Chest: Normal vesicular breath sounds, no added sounds, equal good air entry bilaterally CVS: S1-S2 regular, no murmurs, no tachycardia, no gallops, no rubs Abdomen: Soft, nontender, no organomegaly, bowel sounds present Neuro: No focal deficits, no facial deformity, AO x3, power 5/5 in all limbs Data : 09/20/19 03:40 09/20/19 03:40 A&P Assessment and plan (1) Drug overdose: Status: Acute (2) Suicide attempt: Status: Acute (3) Alcohol intoxication: Status: Acute (4) Alcohol withdrawal syndrome: Status: Acute Qualifiers: Complication of substance-induced condition: uncomplicated Qualified Code(s): F10.230 - Alcohol dependence with withdrawal, uncomplicated (5) Coronary artery disease: Status: Acute (6) COPD (chronic obstructive pulmonary disease): Status: Acute (7) Hypertension: Status: Acute (8) Hypertensive urgency: Status: Acute (9) Non-compliant behavior: Status: Acute Additional A&P Information Drug overdose/suicide attempt/alcoholic intoxication: Patient is on 96-hour hold. Hold off on home dose of Prozac for now. 1 one-to-one sitter Alcohol withdrawal: CIWA?2 right now. Continue with Ativan as per CIWA protocol. 2 mg Ativan every 2 hours IV as needed. Decrease Librium further 25 mg twice daily. Continue with folic acid, thiamine. CAD: Patient has history of PCI to LAD in 2012. Repeat stress in 2016 was negative for any active ischemia. Last echocardiogram in the system from 2018 showed a normal EF of 60% with no regional wall motion abnormality. Patient is chest pain-free. Echocardiogram results appreciated. EF of 63%, grade 1 diastolic dysfunction with no significant change from 2018. As per discussion with Dr. Yeager yesterday patient is a poor candidate for stress test and then possible intervention given history of severe noncompliance as after PCI patient would be at a higher risk of developing in-stent thrombosis and possible . For now plan is to optimize medically. Continue with home dose of aspirin, Plavix, statin, Imdur. Patient has tolerated Lopressor well so we will continue on Lopressor 25 mg twice daily. Hypertensive urgency: Resolved. Most likely because patient extremely noncompliant. Continue with home dose of Imdur, newly added metoprolol. We will decrease the dose of lisinopril to 10 mg daily. History of pancreatitis: Continue with Zenpep 1000 p.o. with meals. COPD: We will start patient on duo nebs, Advair. Patient does not need any steroids for now. Start patient on cardiac diet. Once stable from cardiac point of view patient can be transferred to [facility]. Full code DVt ppx: heparin Case discussed with Dr. Negrete. Patient is stable enough to be transferred to Neuropsych Unit. Patient should continue on aspirin, Plavix, statin, Imdur, Lopressor, lisinopril, Zenpep, Advair on discharge as well. Attestations Medical Necessity Statement*: 96-hour hold, suicide attempt, drug overdose Time Spent in Patient Care: Greater than 35 minutes Coding Level of Care Code Acute Ventilation Equipment Tender for [facility] Fwd Diagnoses Drug overdose T50.901A Suicide attempt T14.91XA Alcohol intoxication F10.929 Alcohol withdrawal syndrome F10.230 Complication of substance-induced condition: uncomplicated Coronary artery disease I25.10 COPD (chronic obstructive pulmonary disease) J44.9 Hypertension I10 Hypertensive urgency I16.0 Non-compliant behavior R46.89
--- NOTE | 2019-09-20 13:20 | PC.NURSE ---
PATIENT UP AT NURSES STATION IN W/C A LOUD THUMP WAS HEARD, PATIENT OUT OF W/C AND ON HIS KNEES. PATIENT REPORTS HIS FEET GOT TANGLED UP WITH THE W/C AND HE FELL TO HIS KNEES. REPORTS HE HIT HIS RIGHT ELBOW ON THE GROUND. PATIENT ABLE TO STAND UP ON HIS OWN WITHOUT DIFFICULTY. STAFF AND PHYSICIAN PRESENT. APPROX 1/2 INCH SKIN TEAR NOTED TO RIGHT ELBOW. NO OTHER INJURIES NOTED. BP 99/65 HR 70 SAT 98% PT NOTIFIED FOR CONSULT.
--- NOTE | 2019-09-20 15:02 | PM.NHP ---
Providers/Chief Complaint Admitting Physician: Willi Márquez Primary Care Provider: Donald Dominguez MD Chief Complaint: etoh HPI NPU History of Present Illness Oscar Baumann is a 59 year old male Who presented to the inpatient unit reporting that he wants to be discharged. He is coming over from the ICU after concerns for an overdose and significant alcohol intoxication and withdrawal. He is on a 96-hour hold which will go through next Tuesday. Initially he started out the interview making threats to jovita people and to call the police believing he is being kept illegally. After some explanation of the process of a 96-hour hold he excepted that there was nothing he could do but was very angry towards the people that he believes intervened to his situation. He does admit that there is some issue with depression, that he has some drinking but he very much downplayed the drinking and could not explain why he had such significant withdrawal symptoms if his drinking was how he said it was. Shortly after our interview he did fall and was unstable but there were no major injuries. He was not extremely cooperative with his history but does report that he was here a couple years ago. That he has had treatment at behavioral health services in the past and he does take Prozac which she reports has been helpful when he takes it. He denied any current issues. He did have a psychiatric consult while he was in the ICU by Dr. Márquez which noted the reported intentional overdose of multiple medications and need for ICU intervention. Per last [facility] [place] eval: History of Present Illness Date of Service: Apr 18, 2017 Chief Complaint: Suicidal ideation, family relationship problems HPI: Mr. Baumann a 57-year-old male who is new to our behavioral health services who was transferred from ICU after he was brought to [facility] ED in altered mental status due to taking Flexeril and being intoxicated with alcohol. As he presents today he reports that he is been increasingly frustrated with his family particular he is since they about a month ago. The particular stressor has to do with children from his 's previous marriage and and her grandchildren who apparently have created a significant amount of chaos in their home and having to do also with substance use. Patient states that he feels abandoned and left alone by his , and feels at this point that they are at an impasse. She states that he does drink alcohol on regular basis and in recent weeks that his alcohol intensity as increased. He denies any symptoms consistent with zechariah, hypomania, psychosis. He denies any other substances. Allergies: Coded Allergies: HYDROMORPHONE (Verified Allergy, Mild, HALLUCINATIONS, 04/17/17) Active Meds: Current Hospital Medications: Medications (Trade) Dose Ordered Sig/Conrad Route PRN Reason Start Time Stop Time Status Last Admin Dose Admin Ondansetron HCl (Zofran Inj) 4 mg Q6H PRN IV FOR NAUSEA AND VOMITING 04/16/17 19:15 Amlodipine Besylate (Norvasc) 10 mg DAILY PO 04/17/17 10:00 04/18/17 09:34 Aspirin (Aspirin Ec) 81 mg DAILY PO 04/17/17 10:00 04/18/17 09:34 Carvedilol (Coreg) 25 mg BID PO 04/17/17 10:00 04/18/17 09:34 Clopidogrel Bisulfate (Plavix) 75 mg DAILY PO 04/17/17 10:00 04/18/17 09:35 Isosorbide Mononitrate (Imdur) 30 mg DAILY PO 04/17/17 10:00 04/18/17 09:34 Thiamine Mononitrate (Thiamine Tab) 100 mg DAILY PO 04/18/17 10:00 04/18/17 09:34 Multivitamins Therapeutic (Therapeutic Multivitamin) 1 ea DAILY PO 04/17/17 10:00 04/18/17 09:34 Folic Acid/ Cyanocobalamin/ pyridoxin (Folic Acid Tab) 1 mg DAILY PO 04/17/17 10:00 04/18/17 09:34 Lorazepam (Ativan Tab) 2 mg PRN PRN PO Withdrawal 04/17/17 08:15 04/17/17 14:12 Albuterol (Ventolin Hfa Inhaler) 2 puff Q4H PRN INH FOR SHORTNESS OF BREATH 04/17/17 09:30 Hydralazine HCl (Apresoline Tab) 25 mg QID PRN PO 04/17/17 15:15 04/18/17 06:09 Oxazepam (Serax) 15 mg TID PRN PO FOR ANXIETY 04/17/17 17:30 Past Medical History Past Medical History: PAST PSYCHIATRIC HISTORY: -No previous hospitalizations -No previous suicide attempts -No previous mental health treatment PAST FAMILY PSYCHIATRIC HISTORY: -Noncontributory SOCIAL HISTORY: -Currently from his PAST MEDICAL HISTORY: -Cardiovascular disease status post stent placement Meds NPU Home Medications Medication Instructions Recorded Confirmed Last Taken Type aspirin 81 mg tablet,delayed 81 mg PO QDAY 90 Days #90 tab 05/29/19 09/18/19 Unknown Rx release clopidogrel [Plavix] 75 mg PO DAILY 09/19/19 09/19/19 Unknown History fluoxetine [Prozac] 20 mg PO DAILY 09/19/19 09/19/19 Unknown History folic acid 1 mg PO DAILY 09/19/19 09/19/19 Unknown History hydroxyzine HCl 25 mg PO QID 09/19/19 09/19/19 Unknown History isosorbide mononitrate 30 mg PO DAILY 09/19/19 09/19/19 Unknown History [id number] [Zenpep] 1,000 cap PO BID 09/19/19 09/19/19 Unknown History lisinopril 20 mg PO DAILY 09/19/19 09/19/19 Unknown History pantoprazole [Protonix] 40 mg PO DAILY 09/19/19 09/19/19 Unknown History potassium chloride 20 meq PO BID 09/19/19 09/19/19 Unknown History Allergies Allergy/AdvReac Type Severity Reaction Status Date / Time hydromorphone [From Dilaudid] Allergy hallucinati Verified 05/29/19 10:57 on PFSH NPU PFSH: Medical History COPD (chronic obstructive pulmonary disease) Coronary artery disease CVA (cerebral vascular accident) Residual left-sided weakness Hypertension Surgical History Post PTCA Social History Smoking and tobacco status: current every day smoker Alcohol intake: current Alcohol intake frequency: 3 or more drinks per day Alcohol type: hard liquor Current gender identity: Male Mental Status Exam MSE Comments: This is an underweight white male looking significantly older than his stated age with limited dress, grooming and eye contact with notable rhinophyma. No abnormal movements except for psychomotor retardation. Semicooperative with exam in mild distress. Speech was decreased rate and volume. Mood described as fine affect subdued and somewhat irritable. Thought process organized. Thought content: Patient denied any suicidal or homicidal ideation, there were no delusions were order noted, he denied any auditory visual hallucination. Attention and concentration were intact and memory was unreliable but none were formally tested. He is alert and oriented x3. Insight and judgment are limited versus impaired. Vitals/I&O/Wt Last Vital Signs Temp 97.8 F 09/20/19 22:02 Pulse 86 09/21/19 00:10 Resp 18 09/21/19 00:10 BP 116/59 09/20/19 22:02 Pulse Ox 95 09/21/19 00:10 09/20/19 09/20/19 09/21/19 14:59 22:59 06:59 Intake Total 240 / 240 Output Total 250 / 250 Balance - Data NPU : 09/21/19 07:21 09/21/19 07:21 A&P Assessment and plan (1) Drug overdose: Status: Acute (2) Suicide attempt: Status: Acute (3) Alcohol intoxication: Status: Acute (4) Alcohol withdrawal syndrome: Status: Acute Qualifiers: Complication of substance-induced condition: uncomplicated Qualified Code(s): F10.230 - Alcohol dependence with withdrawal, uncomplicated (5) Depression: Status: Acute Additional A&P Information This is a 59-year-old white male with depression, alcohol use and intoxication who presented to the emergency room with an intentional overdose who was on a 96-hour hold endorsing a desire to discharge. 1. Continue current medication. 2. Continue to 15-minute checks for safety. 3. Encourage individual, group and milieu therapy. 4. Encourage sober living treatment after discharge at the highest level of care to which he is willing to commit. Involuntary Hold Information 96 Hour Hold: 96 Hour Involuntary Admission: Yes 96 Hour Hold Ending Date: 09/24/19 96 Hour Hold Ending Time: 17:37 Attestations NPU Medical Necessity Statement*: Inpatient hospitalization is medically necessary and the clinically appropriate intervention at this time. He will be in the hospital for over 2 midnights we will monitor medications and adjust as indicated. Likely length of stay 3 to 5 days. Coding Level of Care Code Acute Reconditioning Associate for Peri Villegas Diagnoses Drug overdose T50.901A Suicide attempt T14.91XA Alcohol intoxication F10.929 Alcohol withdrawal syndrome F10.230 Complication of substance-induced condition: uncomplicated Depression F32.9
[2019-09-20] MEDS: atorvastatin 40 mg Tablet 80 MG PO (20:42)
[2019-09-21 00:10] VITALS: PULSE 86; RESP 18; O2SAT 95
[2019-09-21 06:00] VITALS: BP 121/73; PULSE 78; RESP 22; TEMP 37.2; O2SAT 95
--- NOTE | 2019-09-21 06:02 | P.PN_ITS ---
Subjective NPU Subjective: Interval history: Oscar presented today a little more cooperative with this aligner typewriter but still resistant to treatment to some degree we discussed his refusal of some of his medication including his Prozac and he reported that he knows the Prozac is helpful and he did not believe he refused that he thought he refused some other medications. I explained to him the importance of him taking his medication and our hopes of deeming him safe for discharge during this 96-hour evaluation. He was able to share some of the stressors currently in his life which include the cancer diagnoses of a couple siblings and his fear that he has cancer. We discussed the possibility of getting him set up with the evaluations for possible cancer sources for him but that there have been no noted data to suggest that he is currently with cancer. He reported a plan to take his medication. Mental Status Exam MSE Comments: This is an underweight white male looking significantly older than his stated age with limited dress, grooming and eye contact with notable rhinophyma. No abnormal movements except for psychomotor retardation and some notable ataxia with ambulation. A little more cooperative with exam in no acute distress. Speech was decreased rate and volume. Mood described as OK affect subdued and emotional/labile. Thought process organized. Thought content: Patient denied any suicidal or homicidal ideation, there were no delusions were reported or noted, he denied any auditory visual hallucination. Attention and concentration were intact and memory was more reliable but none were formally tested. He is alert and oriented x3. Insight and judgment are limited versus impaired. Vitals/I&O/Wt Last Vital Signs Temp 97.8 F 09/20/19 22:02 Pulse 86 09/21/19 00:10 Resp 18 09/21/19 00:10 BP 116/59 09/20/19 22:02 Pulse Ox 95 09/21/19 00:10 09/20/19 09/20/19 09/21/19 14:59 22:59 06:59 Intake Total 240 / 240 Output Total 250 / 250 Balance - Data NPU : 09/21/19 07:21 09/21/19 07:21 A&P Additional A&P Information (1) Drug overdose: (2) Suicide attempt: (3) Alcohol intoxication: (4) Alcohol withdrawal syndrome: (5) Depression: This is a 59-year-old white male with depression, alcohol use and intoxication who presented to the emergency room with an intentional overdose who was on a 96-hour hold endorsing a desire to discharge. 1. Continue current medication. 2. Continue to 15-minute checks for safety. 3. Encourage individual, group and milieu therapy. 4. Encourage sober living treatment after discharge at the highest level of care to which he is willing to commit. Involuntary Hold Information 96 Hour Hold: 96 Hour Involuntary Admission: Yes 96 Hour Hold Ending Date: 09/24/19 96 Hour Hold Ending Time: 17:37 Attestations NPU Medical Necessity Statement*: Inpatient hospitalization is medically necessary and the clinically appropriate intervention at this time. we will monitor medications and adjust as indicated. Likely length of stay 2-4 days. Coding Level of Care Code Acute Advanced Manufacturing Associate for Peri Villegas
[2019-09-21 07:35] LABS: Basophils % 0.2 %; Eosinophils # 0.1 10^3/uL (0.0-0.8); Eosinophils % 2.3 %; Hemoglobin 10.5 g/dL (11.7-16.6); Lymphocytes # 0.9 10^3/uL (0.8-4.8); Lymphocytes % 20.1 %; Mean Corpuscular HGB Conc 30.9 g/dL (30.0-36.0); Mean Corpuscular Hemoglobin 27.9 pg (28.0-34.0); Mean Corpuscular Volume 90.4 fL (80-94); Mean Platelet Volume 10.6 fL (7.4-10.4); Monocytes # 0.3 10^3/uL (0.2-0.9); Monocytes % 7.3 %; Neutrophils % 69.6 %; Nucleated Red Blood Cells % 0 %; Platelet Count 138 10^3/cmm (130-400); Red Blood Count 3.76 10^6/uL (4.1-5.3); Red Cell Distribution Width 17.3 % (12.1-15.1); White Blood Count 4.4 10^3/uL (4.0-10.0)
[2019-09-21] MEDS: lipase-protease-amylase Capsule 1 EACH PO ×3 (07:39→17:21)
[2019-09-21 07:47] LABS: Alanine Aminotransferase 16 U/L (0-41); Albumin Level 3.3 g/dL (3.5-5.2); Alkaline Phosphatase 122 IU/L (40-130); Anion Gap 16.6 (5-19); Aspartate Amino Transferase 25 U/L (0-40); Blood Urea Nitrogen 15 mg/dL (6-20); Calcium 9.1 mg/dL (8.5-10.5); Carbon Dioxide 25 mmol/L (22-29); Chloride 102 mmol/L (98-107); Globulin 3.5 g/dL (1.3-4.6); Glomerular Filtration Rate 115.4 mL/min (90-130); Glucose 105 mg/dL (65-115); Osmolality Calculated 287 mOsm/kg (285-295); Potassium 3.6 mmol/L (3.5-5.1); Sodium 140 mmol/L (136-145); Total Bilirubin 0.4 mg/dL (0.15-1.2); Total Protein 6.8 g/dL (6.6-8.7)
[2019-09-21] MEDS: clopidogrel 75 mg Tablet PO (09:40)
[2019-09-21] MEDS: aspirin 81 mg EC Tablet PO (09:40)
[2019-09-21] MEDS: lisinopril 20 mg Tablet 10 MG PO (09:41)
[2019-09-21 13:57] VITALS: BP 124/84; PULSE 80; RESP 18; TEMP 37.1; O2SAT 95
[2019-09-21] MEDS: metoprolol tartrate 25 mg Tablet PO (17:21)
[2019-09-21] MEDS: pantoprazole DR 40 mg Tablet PO (17:21)
[2019-09-21 20:41] VITALS: PULSE 80; RESP 18; O2SAT 96
[2019-09-21] MEDS: atorvastatin 40 mg Tablet 80 MG PO (20:49)
[2019-09-21 21:59] VITALS: BP 145/95; PULSE 78; RESP 20; TEMP 37.2; O2SAT 96
[2019-09-22 06:00] VITALS: BP 121/77; PULSE 76; RESP 20; TEMP 37.2; O2SAT 93
[2019-09-22 07:36] VITALS: PULSE 90; RESP 17; O2SAT 94
[2019-09-22] MEDS: pantoprazole DR 40 mg Tablet PO ×2 (09:48→17:35)
[2019-09-22] MEDS: thiamine 100 mg Tablet PO (09:48)
[2019-09-22] MEDS: metoprolol tartrate 25 mg Tablet PO ×2 (09:48→17:35)
[2019-09-22] MEDS: clopidogrel 75 mg Tablet PO (09:48)
[2019-09-22] MEDS: folic acid 1 mg Tablet PO (09:49)
[2019-09-22] MEDS: multivitamin therapeutic Tablet 1 TAB PO (09:49)
[2019-09-22] MEDS: isosorbide mononitrate ER 30 mg Tablet PO (09:49)
[2019-09-22] MEDS: fluoxetine 20 mg Capsule PO (09:49)
[2019-09-22] MEDS: lisinopril 20 mg Tablet 10 MG PO (09:49)
[2019-09-22] MEDS: aspirin 81 mg EC Tablet PO (09:49)
[2019-09-22] MEDS: lipase-protease-amylase Capsule 1 EACH PO ×3 (09:50→17:35)
--- NOTE | 2019-09-22 11:20 | P.PN_ITS ---
Subjective NPU Subjective: Interval history: Oscar presents today reporting that he is feeling better by the day and that he is more focused on what he has to do to discontinue his drinking and function as an outpatient. He expressed remorse about how he is conducted himself and reported a plan to discontinue drinking altogether. He reports that he has a pint of alcohol at home probably if not a little more and that he has a plan to pour out when he gets home. We discussed the likelihood that a better solution would be to have someone else do that. He endorses that he has family living very close to him, his ex- lives close to him as well as other individuals that are in the medical profession/nurses that would probably assist him. We discussed the possibility of discharge in the next 48 hours. Mental Status Exam MSE Comments: This is an underweight white male looking significantly older than his stated age with limited dress, grooming and eye contact with notable rhinophyma. No abnormal movements except for improving psychomotor retardation and continued slow unsteady gait. More cooperative with exam in mild distress. Speech was decreased rate and volume. Mood described as better affect congruent and less subdued. Thought process organized. Thought content: Patient denied any suicidal or homicidal ideation, there were no delusions were order noted, he denied any auditory visual hallucination. Attention and concentration were intact and memory was more reliable but none were formally tested. He is alert and oriented x3. Insight and judgment are limited but improving. Vitals/I&O/Wt Last Vital Signs Temp 99.0 F 09/22/19 06:00 Pulse 76 09/22/19 06:00 Resp 20 H 09/22/19 06:00 BP 121/77 09/22/19 06:00 Pulse Ox 93 09/22/19 06:00 Weight last 48 hrs Weight 61.689 kg Data NPU : 09/21/19 07:21 09/21/19 07:21 A&P Additional A&P Information (1) Drug overdose: (2) Suicide attempt: (3) Alcohol intoxication: (4) Alcohol withdrawal syndrome: (5) Depression: This is a 59-year-old white male with depression, alcohol use and intoxication who presented to the emergency room with an intentional overdose who was on a 96-hour hold endorsing a desire to discharge. 1. Continue current medication. Will explore naltrexon/vivitrol 2. Continue to 15-minute checks for safety. 3. Encourage individual, group and milieu therapy. 4. Encourage sober living treatment after discharge at the highest level of care to which he is willing to commit. Involuntary Hold Information 96 Hour Hold: 96 Hour Involuntary Admission: Yes 96 Hour Hold Ending Date: 09/24/19 96 Hour Hold Ending Time: 17:37 Attestations NPU Medical Necessity Statement*: Inpatient hospitalization is medically necessary and the clinically appropriate intervention at this time. we will monitor medications and adjust as indicated. Likely length of stay 2-4 days. Coding Level of Care Code Acute Motion Picture Set Up Worker for Peri Villegas
[2019-09-22 14:00] VITALS: BP 122/68; PULSE 78; RESP 18; TEMP 36.8
[2019-09-22 19:45] VITALS: PULSE 88; RESP 18; O2SAT 96
[2019-09-22] MEDS: trazodone 50 mg Tablet PO (21:14)
[2019-09-22] MEDS: atorvastatin 40 mg Tablet 80 MG PO (21:14)
[2019-09-22 22:00] VITALS: BP 135/83; PULSE 80; RESP 18; TEMP 37.1; O2SAT 96
--- NOTE | 2019-09-22 23:28 | PC.NURSE ---
TRAZODONE PT REQUESTING SLEEP AID. ADMINISTERED TRAZODONE 50 MG PO. WILL MONITOR FOR MEDICATION EFFECTIVENESS.
[2019-09-23 06:00] VITALS: BP 139/85; PULSE 74; RESP 17; TEMP 37; O2SAT 96
[2019-09-23 07:15] VITALS: PULSE 81; RESP 17; O2SAT 97
[2019-09-23] MEDS: lipase-protease-amylase Capsule 1 EACH PO ×3 (07:37→17:25)
[2019-09-23 08:58] VITALS: BP 101/68; PULSE 88; RESP 18; TEMP 36.4; O2SAT 97
[2019-09-23] MEDS: fluoxetine 20 mg Capsule PO (09:07)
[2019-09-23] MEDS: folic acid 1 mg Tablet PO (09:07)
[2019-09-23] MEDS: multivitamin therapeutic Tablet 1 TAB PO (09:07)
[2019-09-23] MEDS: aspirin 81 mg EC Tablet PO (09:07)
[2019-09-23] MEDS: pantoprazole DR 40 mg Tablet PO ×2 (09:07→17:25)
[2019-09-23] MEDS: thiamine 100 mg Tablet PO (09:07)
[2019-09-23] MEDS: isosorbide mononitrate ER 30 mg Tablet PO (09:07)
[2019-09-23] MEDS: clopidogrel 75 mg Tablet PO (09:07)
[2019-09-23 14:00] VITALS: BP 113/70
--- NOTE | 2019-09-23 14:48 | PM.NPN ---
Subjective NPU Subjective: Interval history: Oscar presents today continuing to improve and expressing a desire to be discharged sooner rather than later. I did have an opportunity to speak to his daughter who feels that the current circumstances might be a great opportunity for him to make some positive advances in his recovery. She reports that he has been drinking and intoxicated as long as she can remember into her childhood. She acknowledges that this would be a big deal if he could figure out how to discontinue the drinking. She reports that for a period of time there will be some ability to slow his drinking as he will not have transportation. But she reports feeling he would be safe for discharge from her perspective. We discussed the risk benefits and alternatives of restarting the [employer] and he understood and agreed to proceed as is documented in this note. Mental Status Exam MSE Comments: This is an underweight white male looking significantly older than his stated age with limited dress, grooming and eye contact with notable rhinophyma. No abnormal movements except for improving psychomotor retardation and improving slow unsteady gait. More cooperative with exam in no acute distress. Speech was more normal rate and volume. Mood described as pretty good, affect congruent and less subdued. Thought process organized. Thought content: Patient denied any suicidal or homicidal ideation, there were no delusions were order noted, he denied any auditory visual hallucination. Attention and concentration were intact and memory was more reliable but none were formally tested. He is alert and oriented x3. Insight and judgment are improving. Vitals/I&O/Wt Last Vital Signs Temp 98.1 F 09/23/19 21:38 Pulse 79 09/23/19 21:38 Resp 14 09/23/19 21:38 BP 143/82 09/23/19 21:38 Pulse Ox 94 09/23/19 21:38 Weight last 48 hrs Weight 61.689 kg Data NPU : 09/21/19 07:21 09/21/19 07:21 A&P Additional A&P Information (1) Drug overdose: (2) Suicide attempt: (3) Alcohol intoxication: (4) Alcohol withdrawal syndrome: (5) Depression: This is a 59-year-old white male with depression, alcohol use and intoxication who presented to the emergency room with an intentional overdose who was on a 96-hour hold endorsing a desire to discharge. 1. Continue current medication. Start naltrexone 50 mg po qam 2. Continue to 15-minute checks for safety. 3. Encourage individual, group and milieu therapy. 4. Encourage sober living treatment after discharge at the highest level of care to which he is willing to commit. Involuntary Hold Information 96 Hour Hold: 96 Hour Involuntary Admission: Yes 96 Hour Hold Ending Date: 09/24/19 96 Hour Hold Ending Time: 17:37 Attestations NPU Medical Necessity Statement*: Inpatient hospitalization is medically necessary and the clinically appropriate intervention at this time. we will monitor medications and adjust as indicated. Likely length of stay 1-3 days.Patient tentative plan for discharge tomorrow. Coding Level of Care Code Acute Elementary School Science Teacher for Peri Vilelgas
[2019-09-23] MEDS: metoprolol tartrate 25 mg Tablet PO (17:25)
[2019-09-23] MEDS: naltrexone hcl 50 mg Tablet PO (18:08)
[2019-09-23] MEDS: atorvastatin 40 mg Tablet 80 MG PO (21:03)
[2019-09-23 21:30] VITALS: PULSE 80; RESP 18; O2SAT 98
[2019-09-23 21:38] VITALS: BP 143/82; PULSE 79; RESP 14; TEMP 36.7; O2SAT 94
[2019-09-24 06:00] VITALS: BP 157/99; PULSE 83; RESP 18; TEMP 36.7; O2SAT 97
[2019-09-24 07:10] VITALS: PULSE 83; RESP 18; O2SAT 97
--- NOTE | 2019-09-24 09:16 | PM.NDC ---
Diagnoses at Discharge Discharge Diagnosis (1) Drug overdose: Status: Acute (2) Suicide attempt: Status: Acute (3) Alcohol intoxication: Status: Resolved (4) Alcohol withdrawal syndrome: Status: Resolved Qualifiers: Complication of substance-induced condition: uncomplicated Qualified Code(s): F10.230 - Alcohol dependence with withdrawal, uncomplicated (5) Depression: Status: Acute Reason for Visit Reason for Visit: Reason For Visit: etoh Brief History: History of Present Illness Oscar Baumann is a 59 year old male Who presented to the inpatient unit reporting that he wants to be discharged. He is coming over from the ICU after concerns for an overdose and significant alcohol intoxication and withdrawal. He is on a 96-hour hold which will go through next Tuesday. Initially he started out the interview making threats to jovita people and to call the police believing he is being kept illegally. After some explanation of the process of a 96-hour hold he excepted that there was nothing he could do but was very angry towards the people that he believes intervened to his situation. He does admit that there is some issue with depression, that he has some drinking but he very much downplayed the drinking and could not explain why he had such significant withdrawal symptoms if his drinking was how he said it was. Shortly after our interview he did fall and was unstable but there were no major injuries. He was not extremely cooperative with his history but does report that he was here a couple years ago. That he has had treatment at behavioral health services in the past and he does take Prozac which she reports has been helpful when he takes it. He denied any current issues. He did have a psychiatric consult while he was in the ICU by Dr. Márquez which noted the reported intentional overdose of multiple medications and need for ICU intervention. Per last [facility] IP eval: History of Present Illness Date of Service: Apr 18, 2017 Chief Complaint: Suicidal ideation, family relationship problems HPI: Mr. Baumann a 57-year-old male who is new to our behavioral health services who was transferred from ICU after he was brought to [facility] ED in altered mental status due to taking Flexeril and being intoxicated with alcohol. As he presents today he reports that he is been increasingly frustrated with his family particular he is since they about a month ago. The particular stressor has to do with children from his 's previous marriage and and her grandchildren who apparently have created a significant amount of chaos in their home and having to do also with substance use. Patient states that he feels abandoned and left alone by his , and feels at this point that they are at an impasse. She states that he does drink alcohol on regular basis and in recent weeks that his alcohol intensity as increased. He denies any symptoms consistent with zechariah, hypomania, psychosis. He denies any other substances. Allergies: Coded Allergies: HYDROMORPHONE (Verified Allergy, Mild, HALLUCINATIONS, 04/17/17) Active Meds: Current Hospital Medications: Medications (Trade) Dose Ordered Sig/Conrad Route PRN Reason Start Time Stop Time Status Last Admin Dose Admin Ondansetron HCl (Zofran Inj) 4 mg Q6H PRN IV FOR NAUSEA AND VOMITING 04/16/17 19:15 Amlodipine Besylate (Norvasc) 10 mg DAILY PO 04/17/17 10:00 04/18/17 09:34 Aspirin (Aspirin Ec) 81 mg DAILY PO 04/17/17 10:00 04/18/17 09:34 Carvedilol (Coreg) 25 mg BID PO 04/17/17 10:00 04/18/17 09:34 Clopidogrel Bisulfate (Plavix) 75 mg DAILY PO 04/17/17 10:00 04/18/17 09:35 Isosorbide Mononitrate (Imdur) 30 mg DAILY PO 04/17/17 10:00 04/18/17 09:34 Thiamine Mononitrate (Thiamine Tab) 100 mg DAILY PO 04/18/17 10:00 04/18/17 09:34 Multivitamins Therapeutic (Therapeutic Multivitamin) 1 ea DAILY PO 04/17/17 10:00 04/18/17 09:34 Folic Acid/ Cyanocobalamin/ pyridoxin (Folic Acid Tab) 1 mg DAILY PO 04/17/17 10:00 04/18/17 09:34 Lorazepam (Ativan Tab) 2 mg PRN PRN PO Withdrawal 04/17/17 08:15 04/17/17 14:12 Albuterol (Ventolin Hfa Inhaler) 2 puff Q4H PRN INH FOR SHORTNESS OF BREATH 04/17/17 09:30 Hydralazine HCl (Apresoline Tab) 25 mg QID PRN PO 04/17/17 15:15 04/18/17 06:09 Oxazepam (Serax) 15 mg TID PRN PO FOR ANXIETY 04/17/17 17:30 Past Medical History Past Medical History: PAST PSYCHIATRIC HISTORY: -No previous hospitalizations -No previous suicide attempts -No previous mental health treatment PAST FAMILY PSYCHIATRIC HISTORY: -Noncontributory SOCIAL HISTORY: -Currently from his PAST MEDICAL HISTORY: -Cardiovascular disease status post stent placement Hospital Course Hospital Course Oscar presented to the emergency room with significant alcohol withdrawal and depression, with some reports of suicidal thoughts. He was admitted to the ICU for definitive treatment of his withdrawal, and to keep him safe from the standpoint of his suicidal thinking. Psychiatric consult was requested, and he was deemed to need inpatient psychiatric care, so he was transferred the psychiatric unit for treatment of his mental health concerns in addition to his recovery and alcohol use disorder. He slowly acclimated the individual, group, and milieu therapies provided. His medications were continued and additionally Naltrexone 50 mg po q daily was initiated, with a recommendation that he consider Vivitrol. During the hospitalization, he had routine laboratory studies which were within normal limits, except for a few outliers. Additionally, he had a general medical evaluation which was within normal limits and revealed no new acute processes, except for the alcohol withdrawal, which was initially treated in the ICU. Discharge Summary At the time of discharge he denied all lethality, was absent psychosis, and his mood and anxiety were well managed. He endorsed a plan to avoid all drugs of abuse and to follow-up with outpatient services, as recommended. He was evaluated and deemed to be absent credible lethality, and had achieved the maximum benefit from an inpatient hospitalization, and so he was discharged. Involuntary Hold Information 96 Hour Hold: 96 Hour Involuntary Admission: Yes 96 Hour Hold Ending Date: 09/24/19 96 Hour Hold Ending Time: 17:37 Mental Status Exam MSE Comments: This is an underweight, white male, looking much older that his stated age, with adequate dress, grooming, and eye contact. No abnormal movements. Cooperative with exam in no acute distress. Speech was more normal rate and volume. Mood described as much better; affect congruent. Thought process, organized. Thought content: patient denied any suicidal or homicidal ideation, there were no delusions reported or noted, patient denied any auditory or visual hallucinations. Attention, concentration, and memory appeared intact but none were formally tested. He is alert and oriented times three. Insight and judgment are improving. Discharge Data Data Completed and Pending: Completed Studies During Hospitalization Category Date Time Status CV echo complete* [id number] Routine Ultrasound 09/19/19 11:22 Completed Vitals: Last Vital Signs Temp 98.0 F 09/24/19 06:00 Pulse 83 09/24/19 07:10 Resp 18 09/24/19 07:10 BP 157/99 09/24/19 06:00 Pulse Ox 97 09/24/19 07:10 Discharge Plan Discharge Patient Disposition: Home, Self-Care Condition: Stable Prescriptions: New naltrexone 50 mg Tablet 50 mg PO DAILY 30 Days Qty: 30 RF: 1 metoprolol tartrate 25 mg Tablet 25 mg PO BID 30 Days Qty: 60 RF: 1 Spiriva with HandiHaler 18 mcg Capsule, W/Inhalation Device 18 mcg inhalation DAILY.RESPIRATORY 30 Days Qty: 1 RF: 1 Vitamin B-1 (mononitrate) 100 mg Tablet 100 mg PO DAILY 30 Days Qty: 30 RF: 0 atorvastatin 40 mg Tablet 80 mg PO BEDTIME 30 Days Qty: 60 RF: 1 Advair Diskus 100-50 mcg/dose Blister With Device 1 puff inhalation BID.RESPIRATORY 30 Days Qty: 1 RF: 1 Continued aspirin [Adult Low Dose Aspirin] 81 mg tablet,delayed release (DR/EC) 81 mg PO QDAY 90 Days Qty: 90 RF: 3 lisinopril 20 mg Tablet 20 mg PO DAILY RF: 0 hydroxyzine HCl 25 mg Tablet 25 mg PO QID RF: 0 isosorbide mononitrate 30 mg Tablet Extended Release 24 Hr 30 mg PO DAILY RF: 0 Plavix 75 mg Tablet 75 mg PO DAILY RF: 0 folic acid 1 mg Tablet 1 mg PO DAILY RF: 0 Protonix 40 mg Tablet,Delayed Release (Dr/Ec) 40 mg PO DAILY RF: 0 potassium chloride 20 mEq Tablet Extended Release 20 meq PO BID RF: 0 Zenpep 3,000-10,000 -14,000-unit Capsule,Delayed Release(Dr/Ec) 1,000 cap PO BID RF: 0 Prozac 20 mg Capsule 20 mg PO DAILY 30 Days Qty: 30 RF: 1 Discharge Orders: Discharge Order (Routine); Ordered 09/24/19 Ordered By: Paulie Negrete Referrals: [facility] [Outside] - 1-3 days (Offers substance abuse treatment and support, inpatient, outpatient, and classes. Contact them for information.) Donald Dominguez MD [Primary Care Provider] - Zhou Colmenares MD [Physician] - 10/08/19 2:40 pm (Psych evaluation, this will be a face to face. It is very important that you attend this appointment.) Discharge Diet: Cardiac Discharge Activity: Increase activity as tolerated Patient Instructions: Metoprolol (By mouth), Thiamine (Vitamin B-1) (By mouth), Naltrexone (By mouth), Fluticasone/Salmeterol (By breathing), Tiotropium (By breathing), Depression (DC) Discharge Date/Time: 09/24/19 10:12 Discharge Attestations NPU Time Spent in Discharge Care*: less than 30 min Specific Discharge Activities: Specific discharge activities: educating patient, discussing with counter caser/social workers/dc planners, documenting/other paperwork and evaluating patient/reviewing data Coding Level of Care Code Acute Team Leader Surgery for Chg Fwd Diagnoses Drug overdose T50.901A Suicide attempt T14.91XA Alcohol intoxication F10.929 Alcohol withdrawal syndrome F10.230 Complication of substance-induced condition: uncomplicated Depression F32.9
[2019-09-24] MEDS: fluoxetine 20 mg Capsule PO (09:36)
[2019-09-24] MEDS: naltrexone hcl 50 mg Tablet PO (09:36)
[2019-09-24] MEDS: aspirin 81 mg EC Tablet PO (09:36)
[2019-09-24] MEDS: metoprolol tartrate 25 mg Tablet PO (09:37)
[2019-09-24] MEDS: isosorbide mononitrate ER 30 mg Tablet PO (09:38)
[2019-09-24] MEDS: pantoprazole DR 40 mg Tablet PO (09:38)
[2019-09-24] MEDS: lisinopril 20 mg Tablet 10 MG PO (09:38)
[2019-09-24] MEDS: thiamine 100 mg Tablet PO (09:38)
[2019-09-24] MEDS: folic acid 1 mg Tablet PO (09:39)
[2019-09-24] MEDS: clopidogrel 75 mg Tablet PO (09:39)
[2019-09-24] MEDS: multivitamin therapeutic Tablet 1 TAB PO (09:40)
[2019-09-24 09:47] VITALS: PULSE 83; RESP 18; O2SAT 97
[2019-09-24] MEDS: lipase-protease-amylase Capsule 1 EACH PO (09:47)
== END 2019-09-24 10:12 | disposition home or self-care (01) | DRG 897 ==
LOC: ER 17:37 → NP 19:28 → ICU 09-19 06:43 → NP 09-19 06:43 → ICU 09-19 07:15 → NP 09-20 11:10
PROVIDERS: Family Medicine; Student in an Organized Health Care Education/Training Program; PCP Family Medicine; Visit Provider Psychiatry & Neurology Psychiatry
DX: F10.239 Alcohol dependence with withdrawal, unspecified (principal); I69.954 Hemiplegia and hemiparesis following unspecified cerebrovascular disease affecting left non-dominant side; T42.4X2A Poisoning by benzodiazepines, intentional self-harm, initial encounter; T43.222A Poisoning by selective serotonin reuptake inhibitors, intentional self-harm, initial encounter; T43.592A Poisoning by other antipsychotics and neuroleptics, intentional self-harm, initial encounter; T51.0X2A Toxic effect of ethanol, intentional self-harm, initial encounter; F10.229 Alcohol dependence with intoxication, unspecified; F41.9 Anxiety disorder, unspecified; J44.9 Chronic obstructive pulmonary disease, unspecified; I25.10 Atherosclerotic heart disease of native coronary artery without angina pectoris; I10 Essential (primary) hypertension; F17.210 Nicotine dependence, cigarettes, uncomplicated; I16.0 Hypertensive urgency; Z91.14 Patient's other noncompliance with medication regimen; Z79.82 Long term (current) use of aspirin; Z79.02 Long term (current) use of antithrombotics/antiplatelets
CPT/HCPCS: 12345; 36415; 36416; 80053; 80061; 80307; 82962; 83690; 84484; 85025; 85610; 93005; 93306; 94640; 96372; 96375; 97110; 97116; 97161; 99284; J0360; J1644; J2060; J2405; J7030; J7611; J7799

== ENCOUNTER → 2019-10-08 14:28 | Outpatient (BNVA) | payer MEDICAID, SELFPAY | PROVIDERS: PCP Family Medicine; Visit Provider Psychiatry & Neurology Psychiatry | DX: F10.20 Alcohol dependence, uncomplicated (principal); F17.200 Nicotine dependence, unspecified, uncomplicated | CPT/HCPCS: 99204 ==

== ENCOUNTER 2020-02-15 06:33 | Emergency (ER) | payer MEDICAID, SELFPAY ==
[2020-02-15] VITALS (23 sets, daily range): BP systolic 60–137; BP diastolic 40–81; PULSE 59–78; RESP 6–25; TEMP 36.9; O2SAT 95–98; BMI 22.2
--- NOTE | 2020-02-15 06:39 | PC.NURSE ---
EKG done at 0640 and shown to ER doctor
--- NOTE | 2020-02-15 06:49 | CT_ITS ---
WS: [id number] CT ANGIOGRAPHY OF THE ABDOMINAL AORTA WITH RUNOFF TO THE ANKLES HISTORY: Aneurysm. TECHNIQUE: Arterial injection is performed during imaging to evaluate the aorta and runoff vessels to the ankles. MIP and volume rendering imaging has also been performed. All images are reviewed. All C T scans at [facility] use at least one of these dose optimization techniques: automated ex posure control; mA and/or kV adjustment per patient size (includes targeted exams where dose is match ed to clinical indication); or iterative reconstruction. Contrast: Omnipaque 350; 95 mL IV. DLP: 1882.18 mGy.cm COMPARISON: 12/13/2018 Emphysema at the lung bases. Very small LEFT pleural effusion. RIGHT basilar atelectasis. Abdominal aorta: Good enhancement of the abdominal aorta. Mesenteric arteries are normally enhancing. Infrarenal aortic aneurysm with a maximum diameter of 4.2 cm has not significantly increased in size since the prior study. There is a large amount of thrombus but the lumen is patent. There is an wing tional large RIGHT common iliac artery aneurysm with a maximum diameter of 3.1 cm which is also stabl e. Extensive atherosclerotic plaque bilaterally through the common iliac arteries but no occlusions. Liver is enlarged, heterogeneous and low attenuation. Probably due to hepatic congestion and fatty in filtration. Negative gallbladder. Abnormal spleen. There is a large subcapsular hematoma compressing the lateral spleen. Subcapsular hematoma extends beyond the splenic confines into the LEFT paracolic gutter. Subcapsular hematoma measures 13.0 x 6.2 cm. Splenic parenchyma superiorly is poorly visualiz ed and there may be a rupture at this location. There is a moderate amount of hemoperitoneum surround ing the liver and spleen along the paracolic gutters into the pelvis. Hemoperitoneum extends to the c entral mesentery and adjacent to the stomach. Pancreas is atrophic and contains calcifications from c hronic pancreatitis. RIGHT kidney is normal. There is a subcapsular collection also associated with t he superior pole of the LEFT kidney. Subcapsular collection is predominantly low-attenuation measurin g 3.9 x 2.2 cm. There is minimal mass effect upon the cortex of the kidney. New since 12/13/2018. No G I tract obstruction. RIGHT lower extremity arterial runoff: There is extensive multifocal calcification throughout the fem oral artery and popliteal artery. Opacification of the vessels become limited distal to the knee. [place] ited but three-vessel runoff to the ankle. Stenoses in the Fermín's canal and popliteal artery are pr obably 50% or just less than 50%. No high-grade stenosis. LEFT lower extremity arterial runoff: Extensive multifocal calcified plaques throughout the femoral a rtery popliteal artery. Three-vessel runoff to the ankle. Vessels are small caliber but patent. No hi gh-grade stenosis greater than 50%. Degenerative spondylitic changes throughout the lower thoracic and lumbar spines. No osteoblastic or osteolytic bone disease. Osteochondrosis most significant at L2-3 and T8-9. CT/CT angio abd aorta runof [id number] IMPRESSION: 1. Large acute subcapsular splenic hematoma and suspected splenic rupture karo g the superior portion of the spleen. 2. Splenic hematoma extends beyond the confines of the spleen into the LEFT pa racolic gutter. 3. Moderate amount of hemoperitoneum from the splenic rupture. 4. Low-attenuation subcapsular mass associated with the superior pole LEFT kid nena measures 3.9 x 2.2 cm. New since 12/13/2018. I suspect this may be from a pr ior subcapsular hematoma that is resolving. 5. Stable infrarenal abdominal aortic aneurysm with a maximum diameter of 4.2 cm. 6. Stable RIGHT common iliac artery aneurysm with a maximum diameter of 3.1 cm . 7. Multifocal areas of mild to moderate stenoses throughout the arteries of th e lower extremities. Most significant stenosis near 50% at Fermín's canal on th e RIGHT. 8. Chronic pancreatitis. Notified Drew Hernandez DO at 02/15/2020 8:30 AM.
--- NOTE | 2020-02-15 06:49 | ECG_ITS ---
[facility] Test Date: 2020-02-15 Pat Name: Oscar Baumann Department: Room: Gender: Male Client Engagement Specialist: : [id number] Requested By: Drew Patrick Order Number: [id number] Adolfo MD: Jacquelyn Abreu M.D. Measurements Intervals [place] Rate: 62 P: 60 CA: 130 QRS: 49 QRSD: 81 T: 58 QT: 477 QTc: 486 Interpretive Statements SINUS RHYTHM PROLONGED QT INTERVAL Compared to ECG 09/19/2019 07:26:59 Prolonged QT interval now present Electronically Signed On 02-15-2020 17:59:16 CDT by Jacquelyn Abreu M.D. [id number]
--- NOTE | 2020-02-15 06:50 | XR_ITS ---
WS: [id number] Portable AP upright chest, 02/15/2020 Clinical Data: dyspnea/cough Comparison: Portable chest, 12/13/2018. Findings: No nodules, masses or effusions are seen. The heart is normal. The pulmonary vascularity is not increased. No pneumonia or pneumothorax is seen. There is a recording device overlying the left lower chest. There is a healed left lateral 10th rib fracture. Monitor leads are on the chest wall. XR/XR chest 1V portable [id number] Impression: Negative chest.
--- NOTE | 2020-02-15 06:51 | W.ED.CHESTPA ---
HPI - Chest Pain General: Chief Complaint: Chest Pain Stated Complaint: CHEST PAIN Time Seen by Provider: 02/15/20 06:38 History of Present Illness: HPI narrative: 59-year-old male presents emergency room with complaint of chest and abdominal pain. He has a known abdominal aortic aneurysm as well as coronary disease. He is complaining of pain in his abdomen radiating down to his groin as well as left thigh chest pain but the pain seems to be primarily in the shoulder rather than radiating to the left shoulder. The abdominal pain is variable with distraction there is no left lower quadrant pain initially on exam he reports exquisite pain in the left lower quadrant but with distraction there is no pain with palpation there. States that she left shoulder discomfort has been going on for over a day. 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 He also has a history of COPD. MD complaint: chest pain Pertinent past history: coronary artery disease Onset (ago): day(s) Timing of current episode: episodic and still present Prior episodes: Yes Onset: during exertion Pain location: left chest Pain radiation: left shoulder (Seem to be the more primary pain in his left shoulder rather than it being radiation.) Severity: moderate Quality: heaviness Relieving factors: rest Exacerbating factors: exertion Associated symptoms: Deny abdominal pain, diaphoresis, dyspnea, fever(s), leg edema, nausea, palpitations, sense of impending doom, syncope or vomiting Treatment prior to arrival: none Review of Systems Const: Denies: fever(s) or diaphoresis ENMT: Denies: throat pain, ear or mastoid pain, nasal discharge or nasal congestion Card: Denies: palpitations or syncope Resp: Denies: dyspnea GI: Denies: abdominal pain, nausea or vomiting : Denies: flank pain, dysuria, urinary frequency or urinary urgency Skin/Breast: Denies: rash or pruritus PFSH ED PFSH: Medical History COPD (chronic obstructive pulmonary disease) Coronary artery disease CVA (cerebral vascular accident) Residual left-sided weakness Hypertension Surgical History Post PTCA Social History Smoking and tobacco status: current every day smoker cigarettes Packs smoked per day: 1 Years cigarettes smoked: 45 Quit status (tobacco): has tried quititng Number of times tried to quit tobacco: 5 Second hand smoke exposure: No Smoking risk assessment/counseling performed?: No Alcohol intake: current Alcohol intake frequency: 3 or more drinks per day Alcohol type: hard liquor Current gender identity: Male Physical Exam Const: COMMON NORMALS: no acute distress GENERAL APPEARANCE: cooperative and comfortable ORIENTATION/CONSCIOUSNESS: Yes awake, Yes oriented to person, Yes oriented to place and Yes oriented to time HENMT: COMMON NORMALS: normocephalic, atraumatic and hearing grossly normal bilaterally HEAD & SCALP: normocephalic and atraumatic Eye: COMMON NORMALS: Equal, round and reactive pupils present, EOMs intact bilaterally, conjunctivae normal and no scleral icterus CONJUNCTIVA: Yes conjunctivae normal PUPIL: Yes Equal, round and reactive pupils present Neck/C-Spine: COMMON NORMALS: no JVD Resp: COMMON NORMALS: normal respiratory effort, No retractions, No use of accessory muscles and clear to auscultation bilaterally AUSCULTATION: clear to auscultation bilaterally Cardio: COMMON NORMALS: no JVD, regular rate, regular rhythm and No murmurs present (Cardio) RATE: regular rate RHYTHM: regular rhythm GI: AUSCULTATION: Yes normoactive bowel sounds PALPATION: Yes Tenderness to palpation present (GI) and Yes Guarding due to palpation present (GI) Extremity: COMMON NORMALS: normal to inspection, capillary refill normal, no clubbing, cyanosis or edema, no calf tenderness and no pedal edema NARRATIVE EXTREMITY EXAM: Femoral pulses equal bilaterally Neuro: SENSORIUM/ORIENTATION: Yes oriented to person, Yes oriented to place and Yes oriented to time Skin: COMMON NORMALS: no rashes or lesions noted GENERAL SKIN EXAM: no rashes or lesions noted Course Vital Signs: Vital signs: Vital Signs Temperature 98.4 F 02/15/20 06:33 Pulse Rate 65 02/15/20 10:40 Respiratory Rate 18 02/15/20 10:40 Blood Pressure 60/45 02/15/20 10:40 Pulse Oximetry 95 02/15/20 10:40 MDM - Chest Pain MDM Narrative: Medical decision making narrative: CT shows splenic rupture with what appears to be blood in the paracolic gutters. Patient had significant decrease in systolic pressure down into the 60s IV blood products are as well as fresh frozen plasma due to the fact that he is on Eliquis. He is not taken today we will transfuse her to [facility] in [place] via air ambulance second unit of blood was hung as the patient was departing. We do not have trauma services or interventional radiology here and patient will need further blood banking. Patient stabilized to the extent that we are able at this point needs either interventional radiology or trauma surgery. Lab Data: Attestation: I reviewed the patient's lab results. Labs: Lab Results 02/15/20 02/15/20 02/15/20 Range/Units 06:15 06:15 06:15 WBC 7.5 (4.0-10.0) 10^3/ uL RBC 3.77 L (4.1-5.3) 10^6/u L Hgb 11.4 L (11.7-16.6) g/dL Hct 37.0 L (42.0-52.0) % MCV 98.1 H (80-94) fL MCH 30.2 (28.0-34.0) pg MCHC 30.8 (30.0-36.0) g/dL RDW 14.6 (12.1-15.1) % Plt Count 299 (130-400) 10^3/c mm MPV 11.2 H (7.4-10.4) fL Neut % (Auto) 65.3 % Lymph % (Auto) 23.7 % [place] % (Auto) 9.2 % Eos % (Auto) 0.5 % Baso % (Auto) 0.5 % Neut # (Auto) 4.92 (1.8-7.7) 10^3/u L Lymph # (Auto) 1.8 (0.8-4.8) 10^3/u L [place] # (Auto) 0.7 (0.2-0.9) 10^3/u L Eos # (Auto) 0.0 (0.0-0.8) 10^3/u L Baso # (Auto) 0.0 (0.0-0.1) 10^3/u L Nucleated RBC % (a uto) 0 % Nucleated RBCs # 0.0 /100WBC Sodium 139 (136-145) mmol/L Potassium 4.2 (3.5-5.1) mmol/L Chloride 99 (98-107) mmol/L Carbon Dioxide 23 (22-29) mmol/L Anion Gap 21.2 H (5-19) BUN 17 (6-20) mg/dL Creatinine 0.7 (0.7-1.2) mg/dL GFR Calculation 115.4 (90-130) mL/min Glucose 119 H (65-115) mg/dL Calculated Osmolal ity 291 (285-295) mOsm/k g Calcium 9.1 (8.5-10.5) mg/dL Total Bilirubin 0.6 (0.15-1.2) mg/dL AST 47 H (0-40) U/L ALT 24 (0-41) U/L Alkaline Phosphata se 169 H (40-130) IU/L Troponin T Baselin e 15 (0-15) ng/L Troponin T 120 Min hughes (0-15) ng/L Delta Troponin T (0-10) ABS# Total Protein 6.8 (6.6-8.7) g/dL Albumin 3.7 (3.5-5.2) g/dL Globulin 3.1 (1.3-4.6) g/dL Lipase 279 H (13-60) U/L Blood Type Rho(D) Type Antibody Screen Crossmatch 02/15/20 02/15/20 Range/Units 08:14 08:44 WBC (4.0-10.0) 10^3/ uL RBC (4.1-5.3) 10^6/u L Hgb (11.7-16.6) g/dL Hct (42.0-52.0) % MCV (80-94) fL MCH (28.0-34.0) pg MCHC (30.0-36.0) g/dL RDW (12.1-15.1) % Plt Count (130-400) 10^3/c mm MPV (7.4-10.4) fL Neut % (Auto) % Lymph % (Auto) % [place] % (Auto) % Eos % (Auto) % Baso % (Auto) % Neut # (Auto) (1.8-7.7) 10^3/u L Lymph # (Auto) (0.8-4.8) 10^3/u L [place] # (Auto) (0.2-0.9) 10^3/u L Eos # (Auto) (0.0-0.8) 10^3/u L Baso # (Auto) (0.0-0.1) 10^3/u L Nucleated RBC % (a uto) % Nucleated RBCs # /100WBC Sodium (136-145) mmol/L Potassium (3.5-5.1) mmol/L Chloride (98-107) mmol/L Carbon Dioxide (22-29) mmol/L Anion Gap (5-19) BUN (6-20) mg/dL Creatinine (0.7-1.2) mg/dL GFR Calculation (90-130) mL/min Glucose (65-115) mg/dL Calculated Osmolal ity (285-295) mOsm/k g Calcium (8.5-10.5) mg/dL Total Bilirubin (0.15-1.2) mg/dL AST (0-40) U/L ALT (0-41) U/L Alkaline Phosphata se (40-130) IU/L Troponin T Baselin e (0-15) ng/L Troponin T 120 Min hughes 11.29 (0-15) ng/L Delta Troponin T -3.71 L (0-10) ABS# Total Protein (6.6-8.7) g/dL Albumin (3.5-5.2) g/dL Globulin (1.3-4.6) g/dL Lipase (13-60) U/L Blood Type B Positive Rho(D) Type Positive Antibody Screen Negative Crossmatch See Detail Discharge Plan Discharge Patient Disposition: Transfer to ED Clinical Impression: Rupture of spleen, COPD (chronic obstructive pulmonary disease), Hypertension, Coronary artery disease, Aortic aneurysm Prescriptions: No Action aspirin [Adult Low Dose Aspirin] 81 mg tablet,delayed release (DR/EC) 81 mg PO QDAY 90 Days Qty: 90 RF: 3 hydroxyzine HCl 25 mg tablet 25 mg PO QID 30 Days Qty: 120 RF: 5 Zenpep 10,000-32,000 -42,000 unit capsule,delayed release(DR/EC) 1 cap PO BID Qty: 180 RF: 1 atorvastatin 40 mg tablet 80 mg PO BEDTIME 30 Days Qty: 60 RF: 1 Prozac 20 mg capsule 20 mg PO DAILY 30 Days Qty: 30 RF: 1 metoprolol tartrate 25 mg tablet 25 mg PO BID 30 Days Qty: 60 RF: 1 naltrexone 50 mg tablet 50 mg PO DAILY 30 Days Qty: 30 RF: 1 lisinopril 20 mg Tablet 20 mg PO DAILY RF: 0 isosorbide mononitrate 30 mg Tablet Extended Release 24 Hr 30 mg PO DAILY RF: 0 Plavix 75 mg Tablet 75 mg PO DAILY RF: 0 folic acid 1 mg Tablet 1 mg PO DAILY RF: 0 Protonix 40 mg Tablet,Delayed Release (Dr/Ec) 40 mg PO DAILY RF: 0 Spiriva with HandiHaler 18 mcg Capsule, W/Inhalation Device 18 mcg inhalation DAILY.RESPIRATORY 30 Days Qty: 1 RF: 1 Advair Diskus 100-50 mcg/dose Blister With Device 1 puff inhalation BID.RESPIRATORY 30 Days Qty: 1 RF: 1 Referrals: Donald Dominguez MD [Primary Care Provider] - Discharge Diet: Usual diet Interventions: ED Discharge Assessment Last Done: 02/15/20 10:40 ED Charges Last Done: 02/15/20 10:40 Discharge Date/Time: 02/15/20 10:30 Coding Level of Care Code ED Customer Contact Specialist for Chg Fwd Exam Comprehensive
[2020-02-15 07:00] LABS: Basophils % 0.5 %; Eosinophils % 0.5 %; Hemoglobin 11.4 g/dL (11.7-16.6); Lymphocytes # 1.8 10^3/uL (0.8-4.8); Lymphocytes % 23.7 %; Mean Corpuscular HGB Conc 30.8 g/dL (30.0-36.0); Mean Corpuscular Hemoglobin 30.2 pg (28.0-34.0); Mean Corpuscular Volume 98.1 fL (80-94); Mean Platelet Volume 11.2 fL (7.4-10.4); Monocytes # 0.7 10^3/uL (0.2-0.9); Monocytes % 9.2 %; Neutrophils # 4.92 10^3/uL (1.8-7.7); Neutrophils % 65.3 %; Nucleated Red Blood Cells % 0 %; Platelet Count 299 10^3/cmm (130-400); Red Blood Count 3.77 10^6/uL (4.1-5.3); Red Cell Distribution Width 14.6 % (12.1-15.1); White Blood Count 7.5 10^3/uL (4.0-10.0)
[2020-02-15 07:13] LABS: Alanine Aminotransferase 24 U/L (0-41); Albumin Level 3.7 g/dL (3.5-5.2); Alkaline Phosphatase 169 IU/L (40-130); Blood Urea Nitrogen 17 mg/dL (6-20); Calcium 9.1 mg/dL (8.5-10.5); Carbon Dioxide 23 mmol/L (22-29); Chloride 99 mmol/L (98-107); Globulin 3.1 g/dL (1.3-4.6); Glomerular Filtration Rate 115.4 mL/min (90-130); Glucose 119 mg/dL (65-115); Lipase 279 U/L (13-60); Osmolality Calculated 291 mOsm/kg (285-295); Sodium 139 mmol/L (136-145); Total Bilirubin 0.6 mg/dL (0.15-1.2); Total Protein 6.8 g/dL (6.6-8.7)
[2020-02-15 07:14] LABS: Troponin(5th) Baseline 15 ng/L (0-15)
[2020-02-15 07:18] LABS: Anion Gap 21.2 (5-19); Aspartate Amino Transferase 47 U/L (0-40); Potassium 4.2 mmol/L (3.5-5.1)
[2020-02-15] MEDS: iohexol 350 mg/mL 100 mL Btl IV (07:56)
[2020-02-15] MEDS: morphine 4 mg/mL SDV 1 mL IVP (08:01)
[2020-02-15] MEDS: ondansetron 2 mg/ML SDV 2 mL 4 MG IVP ×2 (08:01→09:49)
--- NOTE | 2020-02-15 08:06 | PC.NURSE ---
Daughter stated patient consumes alcohol periodically and does not take his eliquis while consuming alcohol per PCP.
[2020-02-15] MEDS: sodium chloride 0.9% 500 ML 999 ML IV (08:18)
--- NOTE | 2020-02-15 08:49 | ECG_ITS ---
[facility] Test Date: 2020-02-15 Pat Name: Oscar Baumann Department: Room: Gender: Male [employer]: : [id number] Requested By: Drew Patrick Order Number: [id number] Adolfo MD: Jacquelyn Arbeu M.D. Measurements Intervals [place] Rate: 69 P: 54 LA: 128 QRS: 58 QRSD: 81 T: 61 QT: 451 QTc: 484 Interpretive Statements SINUS RHYTHM PROLONGED QT INTERVAL Compared to ECG 09/19/2019 07:26:59 Prolonged QT interval now present Electronically Signed On 02-15-2020 18:17:56 CDT by Jacquelyn Abreu M.D. [id number]
[2020-02-15 08:55] LABS: Troponin 5 2HR 11.29 ng/L (0-15)
[2020-02-15 08:58] LABS: Troponin 5 2HR Delta -3.71 ABS# (0-10)
[2020-02-15] MEDS: sodium chloride 0.9% (100 ml) 100 ML 250 ML (09:40)
[2020-02-15] MEDS: fentaNYL 50 mcg/mL INJ 2mL 12.5 MCG IV (10:00)
[2020-02-15] MEDS: sodium chloride 0.9% 250 ML 100 ML IV (10:28)
== END 2020-02-15 10:30 ==
PROVIDERS: Emergency Provider Family Medicine; PCP Family Medicine
DX: S36.09XA Other injury of spleen, initial encounter (principal); J44.9 Chronic obstructive pulmonary disease, unspecified; I10 Essential (primary) hypertension; I25.10 Atherosclerotic heart disease of native coronary artery without angina pectoris; Z79.82 Long term (current) use of aspirin; Z86.73 Personal history of transient ischemic attack (TIA), and cerebral infarction without residual deficits; F17.210 Nicotine dependence, cigarettes, uncomplicated; I71.4 Abdominal aortic aneurysm, without rupture; X58.XXXA Exposure to other specified factors, initial encounter
CPT/HCPCS: 12345; 36415; 36430; 51702; 71045; 75635; 80053; 83690; 84484; 85025; 86850; 86900; 86920; 86927; 93005; 96374; 96375; 96376; 99284; 99291; J2270; J2405; J3010; J7040; J7050; P9016; P9017; Q9967

== ENCOUNTER 2020-03-13 19:28 | Inpatient (IN) | payer MEDICAID, SELFPAY ==
[2020-03-13] VITALS (10 sets, daily range): BP systolic 121–144; BP diastolic 76–99; PULSE 91–115; RESP 17–24; TEMP 37.1; O2SAT 93–97; BMI 21.7
--- NOTE | 2020-03-13 19:40 | CTR_ITS ---
PROCEDURE INFORMATION: Exam: CT Abdomen And Pelvis With Contrast Exam date and time: 03/13/2020 7:46 PM Age: 60 years old Clinical indication: Abdominal pain; Prior surgery; Surgery type: Hernia, stents TECHNIQUE: Imaging protocol: Computed tomography of the abdomen and pelvis with intravenous contrast. Radiation optimization: All CT scans at this facility use at least one of these dose optimization techniques: automated exposure control; mA and/or kV adjustment per patient size (includes targeted exams where dose is matched to clinical indication); or iterative reconstruction. Contrast material: OMNI 300; Contrast volume: 95 ml; Contrast route: INTRAVENOUS (IV); COMPARISON: CT Chest/Abdomen/Pelvis w IV* 12/13/2018 9:24 PM RADIATION DOSE METRICS: Total DLP (mGy-cm): 307.88 FINDINGS: Pleural space: Limited assessment lung bases reveals a scant left pleural effusion. Minimal dependent atelectasis left lung base. Coronary artery disease. Liver: Hepatomegaly. No visible hepatic mass or cystic structure. Gallbladder and bile ducts: No visible cholelithiasis. No visible intra or extrahepatic biliary ectasia. Pancreas: Evidence of chronic pancreatitis to include a small pancreatic head pseudocyst that measures approximately 14 mm that has decreased in size since last study of 12/13/2018. Spleen: Status post splenectomy. Adrenal glands: Unremarkable. No mass. Kidneys and ureters: Subcapsular fluid collection equator left kidney measuring 55 mm x 23 mm x 42 mm. This could reflect a subcapsular hematoma/seroma; however, the close approximation to the subdiaphragmatic abscess raise the potential for a subcapsular abscess. Right kidney unremarkable. Stomach and bowel: Mild diverticulosis coli without visible evidence for acute diverticulitis. Nonobstructive bowel pattern. No visible adynamic or reactive ileus. Appendix: No evidence of appendicitis. Intraperitoneal space: Small volume intraperitoneal ascites. Large left subdiaphragmatic abscess measuring 14.4 cm x 9.4 cm x 10.8 cm. There is a small abscess diverticular outpouching off the medial wall of the dominant abscess that measures 3.4 cm x 2.6 cm. Pneumoperitoneum. Most of the free air is in the upper abdominal location. Exact site of the hollow viscus perforation indeterminate; however, consideration most likely should be given to the either gastric or duodenal site due to the location of the free air pockets. Mesenteric edema. Vasculature: Portal vein patent. Evidence of portal venous hypertension with varices. Fusiform aneurysmal dilatation of the infrarenal abdominal aorta greatest AP diameter 4 cm and transverse diameter 4.4 cm. Fusiform aneurysmal dilatation of the right common iliac artery measuring 3 cm in diameter with a length of 6.7 cm. Ostium of the left common iliac artery measures 21 mm. Extensive arterial sclerotic disease. No intimal flap or dissection identified. Lymph nodes: No visible generalized lymphadenopathy. Urinary bladder: Unremarkable as visualized. Reproductive: Unremarkable as visualized. Bones/joints: Old rib fractures. Degenerative disease and degenerative disc disease of the spine with spondylosis deformans. Mild scoliotic curvature. No visible acute osseous abnormality. Soft tissues: Unremarkable. CT/CT abdomen pelvis w con* [id number] IMPRESSION: 1. Large left subdiaphragmatic abscess measuring 14.4 cm x 9.4 cm x 10.8 cm. 2. Subcapsular fluid collection equator left kidney measuring 55 mm x 23 mm x 42 mm. This could reflect a subcapsular hematoma/seroma; however, the close approximation to the subdiaphragmatic abscess raise the potential for a subcapsular abscess. 3. Pneumoperitoneum. 4. Small volume intraperitoneal ascites. 5. Status post splenectomy. 6. Chronic pancreatitis. 7. Portal venous hypertension. 8. Infrarenal fusiform abdominal aortic aneurysm extending into the iliac arteries as detailed in text above. No visible intimal flap or dissection. 9. Other nonurgent, nonemergent, chronic, and age related findings as detailed in text above. Radiation Dose CTDIVOL = (mGy): DLP = 307.88 (mGy-cm)
--- NOTE | 2020-03-13 19:49 | ED_ITS ---
HPI - Abdominal Pain General: Chief Complaint: Abdominal Pain Stated Complaint: ruq pain and black stools Time Seen by Provider: 03/13/20 19:33 Source: patient Mode of arrival: ambulatory Limitations: no limitations History of Present Illness: HPI narrative: Mr. Baumann is a very nice 60-year-old male who comes in complaining of severe abdominal pain. The pain began today suddenly. Patient states that his pain is mostly on the right side of his abdomen. He is nauseated but is not vomited. He denies any fevers or chills. Patient denies have anything similar to this. Of note approximately 2 weeks ago the patient had a splenectomy at [facility] in [place] believed to be due to trauma. The patient denies any blood in his stools, black tarry stools or other complaints. Associated Symptoms: Denies chills, coffee ground emesis, constipation, GI cramping, diarrhea, dysuria, fever(s), heartburn, hematochezia, hematuria, hematemesis, melena, nausea, syncope and vomiting Review of Systems Const: Denies: fever(s), chills, body aches, fatigue, malaise or diaphoresis Eyes: Denies: change in vision, blurry vision, photophobia, eye discomfort, eye discharge, eye redness or yellow eyes ENMT: Denies: throat pain, odynophagia, hoarseness, swelling of lips/tongue, ear or mastoid pain, ear discharge, change in hearing or nasal discharge Card: Denies: chest pain, palpitations, irregular heart rhythm, edema, lightheadedness, syncope, pre-syncope, dyspnea on exertion or orthopnea Resp: Denies: dyspnea, productive cough, non-productive cough, wheezing, hemoptysis or chest congestion GI: Denies: abdominal pain, nausea, vomiting, hematemesis, coffee ground emesis, heartburn, diarrhea, constipation, GI cramping, hematochezia or melena : Denies: flank pain, dysuria, urinary frequency, urinary urgency or hematuria Musc: Denies: neck pain, back pain, extremity pain, extremity swelling, joint pain, joint swelling, joint redness, joint warmth or joint stiffness Skin/Breast: Denies: rash, pruritus, erythema, skin pain or skin tenderness Neuro: Denies: headache(s), numbness in extremities, weakness in extremities, sensory changes, lack of coordination, difficulty walking, dizziness, vertigo, confusion, Slurred speech present or seizure-like activity Kenny/Lymph: Denies: easy bruising, easy bleeding, petechiae, purpura or enlarged lymph nodes All/Imm: Denies: urticaria, throat swelling, tongue swelling, facial swelling or acute wheezing PFSH ED PFSH: Medical History COPD (chronic obstructive pulmonary disease) Coronary artery disease CVA (cerebral vascular accident) Residual left-sided weakness Encounter for observation for other suspected diseases and conditions ruled out Hypertension Surgical History H/O splenectomy Post PTCA Family History (Updated 03/13/20 @ 23:40 by Israel Liang MD) Other No pertinent family history Social History Smoking and tobacco status: current every day smoker cigarettes Packs smoked pe r day: 1 Years cigarettes smoked: 45 Quit status (tobacco): has tried quititng Number of times tried to quit tobacco : 5 Second hand smoke exposure: No Smoking risk assessment/counseling performed?: No Alcohol intake: current Alcohol intake frequency: 3 or more drinks per day Alcohol type: hard liquor Current gender identity: Male Physical Exam Const: COMMON NORMALS: no acute distress, patient oriented x3, no limitations and alert GENERAL APPEARANCE: cooperative HENMT: COMMON NORMALS: normocephalic, atraumatic, external ears normal, EAC's normal and Normal external nose present HEAD & SCALP: normal to inspection, normocephalic and atraumatic FACE & SINUS: normal facial exam and face symmetric NOSE: Normal external nose present and Normal nares present EXTERNAL EAR: Yes external ears normal EXTERNAL AUDITORY CANAL: EAC's normal MOUTH: Normal oral and palatal mucosa present, lip normal and tongue normal Eye: COMMON NORMALS: Equal, round and reactive pupils present and conjunctivae normal GENERAL EYE: appearance normal, both eyes and all related structures ALIGNMENT: Yes alignment normal PERIORBITAL: periorbital findings normal EYELID: eyelids normal CONJUNCTIVA: Yes conjunctivae normal SCLERA: sclerae normal PUPIL: Yes Equal, round and reactive pupils present Neck/C-Spine: COMMON NORMALS: full ROM, no lymphadenopathy, supple, no meningeal signs and no JVD GENERAL: Yes normal visual inspection and Yes trachea midline Chest: COMMONS NORMALS: normal inspection of the chest and normal palpation of entire chest wall Resp: COMMON NORMALS: normal respiratory effort, No retractions, No use of accessory muscles and clear to auscultation bilaterally EFFORT & INSPECTION: Yes able to speak in complete sentences and Yes symmetric chest movement AUSCULTATION: clear to auscultation bilaterally, no crackles, no rales, no rhonchi and no wheezes Cardio: COMMON NORMALS: no JVD, regular rate, regular rhythm, S1 normal heart sound present and S2 normal heart sound present RATE: regular rate RHYTHM: regular rhythm HEART SOUNDS: S1 normal heart sound present, S2 normal heart sound present, no click, no gallops, no murmurs and no rubs GI: COMMON NORMALS: Soft to palpation and No hepatosplenomegaly present PALPATION: Yes Soft to palpation, Yes Tenderness to palpation present (GI) (Severe diffusely), No Guarding due to palpation present (GI), No Rigid due to palpation, Yes No hepatosplenomegaly present, No Hernia present, No Palpable mass present and No Pulsatile mass present : COMMON NORMALS: Yes no CVA tenderness BLADDER/KIDNEY EXAM: Yes no CVA tenderness Back/Pelvis: COMMON NORMALS: no CVA tenderness, thoracic and lumbar spine normal to inspection, no thoracic nor lumbar tenderness and thoraco-lumbar ROM normal Extremity: COMMON NORMALS: normal to inspection, full ROM, capillary refill normal, no joint enlargement, no clubbing, cyanosis or edema and no calf tenderness Neuro: COMMON NORMALS: patient oriented x3, CN's II-XII intact bilaterally, moves all extremities, no focal motor deficits and no sensory deficits noted SENSORIUM/ORIENTATION: Yes alert MENINGEAL SIGNS: Yes no meningeal signs SPEECH: speech normal Psych: COMMON NORMALS: mental status grossly normal, Normal thought process present, cooperative, normal affect, speech normal and activity/motor behavior normal SPEECH: Yes normal speech THOUGHT PROCESS: Normal thought process present Skin: COMMON NORMALS: no rashes or lesions noted, turgor normal, no jaundice, no petechiae and no mottling GENERAL SKIN EXAM: no rashes or lesions noted and turgor normal Course Vital Signs: Vital signs: Vital Signs Temperature 98.6 F 03/14/20 00:19 Pulse Rate 105 H 03/14/20 03:00 Respiratory Rate 23 H 03/14/20 03:00 Blood Pressure 112/75 03/14/20 03:00 Pulse Oximetry 94 03/14/20 03:00 MDM - Abdominal Pain MDM Narrative: Medical decision making narrative: Immediately upon obtaining the CT results I contacted Dr. Markham as well as Dr. Liang, they agreed to consult and admit respectively. Dr. Berger is going to come see the patient here in the ER. I have ordered backup blood work and everything necessary should the patient need surgery. Patient has been loaded with IV antibiotics here. Lab Data: Attestation: I reviewed the patient's lab results. Labs: Lab Results 03/13/20 03/13/20 Range/Units 19:11 19:11 WBC 9.2 (4.0-10.0) 10^3/ uL RBC 3.60 L (4.1-5.3) 10^6/u L Hgb 10.1 L (11.7-16.6) g/dL Hct 32.6 L (42.0-52.0) % MCV 90.6 (80-94) fL MCH 28.1 (28.0-34.0) pg MCHC 31.0 (30.0-36.0) g/dL RDW 15.1 (12.1-15.1) % Plt Count 796 H (130-400) 10^3/c mm MPV 10.1 (7.4-10.4) fL Neut % (Auto) 65.3 % Lymph % (Auto) 27.0 % [place] % (Auto) 5.6 % Eos % (Auto) 0.2 % Baso % (Auto) 0.3 % Neut # (Auto) 6.01 (1.8-7.7) 10^3/u L Lymph # (Auto) 2.5 (0.8-4.8) 10^3/u L [place] # (Auto) 0.5 (0.2-0.9) 10^3/u L Eos # (Auto) 0.0 (0.0-0.8) 10^3/u L Baso # (Auto) 0.0 (0.0-0.1) 10^3/u L Nucleated RBC % (a uto) 0.5 % Nucleated RBCs # 0.1 /100WBC Sodium 139 (136-145) mmol/L Potassium 3.8 (3.5-5.1) mmol/L Chloride 97 L (98-107) mmol/L Carbon Dioxide 27 (22-29) mmol/L Anion Gap 18.8 (5-19) BUN 15 (8-23) mg/dL Creatinine 0.5 L (0.7-1.2) mg/dL GFR Calculation 169.6 H (90-130) mL/min Glucose 128 H (65-115) mg/dL Calculated Osmolal ity 290 (285-295) mOsm/k g Calcium 8.4 L (8.5-10.5) mg/dL Magnesium 1.7 (1.7-2.3) mg/dL Total Bilirubin 0.2 (0.15-1.2) mg/dL AST 23 (0-40) U/L ALT 11 (0-41) U/L Alkaline Phosphata se 154 H (40-130) IU/L Total Protein 5.6 L (6.6-8.7) g/dL Albumin 2.8 L (3.5-5.2) g/dL Globulin 2.8 (1.3-4.6) g/dL Lipase 133 H (13-60) U/L Imaging Data ^: CT Abd/Pel: Radiologist's impression: [address] [address] [address] Scan Report Signed with Addenda Patient: Oscar Baumann Unit #: [id number] : 1960 Age/Sex: 60 / M ADM Date: 03/13/20 Loc: ER Room/Bed: Attending Dr: Ordering Provider/Ordering MD: Glo Cueto DO Date of Service: 03/13/20 Procedure(s): CT abdomen pelvis w con* [id number] Accession Number(s): [id number] Report Number: [id number]/CT abdomen pelvis w con* [id number] THIS REPORT CONTAINS FINDINGS THAT MAY BE CRITICAL TO PATIENT CARE. The findings were verbally communicated via telephone conference with Glo Cueto at 8:15 PM DIRECTOR OF CORPORATE REAL ESTATE on 03/13/2020. The findings were acknowledged and understood. Radiation Dose CTDIVOL = (mGy): DLP = 307.88 (mGy-cm) Addendum Dictated By: Willi Fragoso Addendum Signed By: Willi Fragoso Signed Date/Time: 03/13/20 203 3 Addendum Cosigned By: PROCEDURE INFORMATION: Exam: CT Abdomen And Pelvis With Contrast Exam date and time: 03/13/2020 7:46 PM Age: 60 years old Clinical indication: Abdominal pain; Prior surgery; Surgery type: Hernia, stents TECHNIQUE: Imaging protocol: Computed tomography of the abdomen and pelvis with intravenous contrast. Radiation optimization: All CT scans at this facility use at least one of these dose optimization techniques: automated exposure control; mA and/or kV adjustment per patient size (includes targeted exams where dose is matched to clinical indication); or iterative reconstruction. Contrast material: OMNI 300; Contrast volume: 95 ml; Contrast route: INTRAVENOUS (IV); COMPARISON: CT Chest/Abdomen/Pelvis w IV* 12/13/2018 9:24 PM RADIATION DOSE METRICS: Total DLP (mGy-cm): 307.88 FINDINGS: Pleural space: Limited assessment lung bases reveals a scant left pleural effusion. Minimal dependent atelectasis left lung base. Coronary artery disease. Liver: Hepatomegaly. No visible hepatic mass or cystic structure. Gallbladder and bile ducts: No visible cholelithiasis. No visible intra or extrahepatic biliary ectasia. Pancreas: Evidence of chronic pancreatitis to include a small pancreatic head pseudocyst that measures approximately 14 mm that has decreased in size since last study of 12/13/2018. Spleen: Status post splenectomy. Adrenal glands: Unremarkable. No mass. Kidneys and ureters: Subcapsular fluid collection equator left kidney measuring 55 mm x 23 mm x 42 mm. This could reflect a subcapsular hematoma/seroma; however, the close approximation to the subdiaphragmatic abscess raise the potential for a subcapsular abscess. Right kidney unremarkable. Stomach and bowel: Mild diverticulosis coli without visible evidence for acute diverticulitis. Nonobstructive bowel pattern. No visible adynamic or reactive ileus. Appendix: No evidence of appendicitis. Intraperitoneal space: Small volume intraperitoneal ascites. Large left subdiaphragmatic abscess measuring 14.4 cm x 9.4 cm x 10.8 cm. There is a small abscess diverticular outpouching off the medial wall of the dominant abscess that measures 3.4 cm x 2.6 cm. Pneumoperitoneum. Most of the free air is in the upper abdominal location. Exact site of the hollow viscus perforation indeterminate; however, consideration most likely should be given to the either gastric or duodenal site due to the location of the free air pockets. Mesenteric edema. Vasculature: Portal vein patent. Evidence of portal venous hypertension with varices. Fusiform aneurysmal dilatation of the infrarenal abdominal aorta greatest AP diameter 4 cm and transverse diameter 4.4 cm. Fusiform aneurysmal dilatation of the right common iliac artery measuring 3 cm in diameter with a length of 6.7 cm. Ostium of the left common iliac artery measures 21 mm. Extensive arterial sclerotic disease. No intimal flap or dissection identified. Lymph nodes: No visible generalized lymphadenopathy. Urinary bladder: Unremarkable as visualized. Reproductive: Unremarkable as visualized. Bones/joints: Old rib fractures. Degenerative disease and degenerative disc disease of the spine with spondylosis deformans. Mild scoliotic curvature. No visible acute osseous abnormality. Soft tissues: Unremarkable. CT/CT abdomen pelvis w con* [id number] IMPRESSION: 1. Large left subdiaphragmatic abscess measuring 14.4 cm x 9.4 cm x 10.8 cm. 2. Subcapsular fluid collection equator left kidney measuring 55 mm x 23 mm x 42 mm. This could reflect a subcapsular hematoma/seroma; however, the close approximation to the subdiaphragmatic abscess raise the potential for a subcapsular abscess. 3. Pneumoperitoneum. 4. Small volume intraperitoneal ascites. 5. Status post splenectomy. 6. Chronic pancreatitis. 7. Portal venous hypertension. 8. Infrarenal fusiform abdominal aortic aneurysm extending into the iliac arteries as detailed in text above. No visible intimal flap or dissection. 9. Other nonurgent, nonemergent, chronic, and age related findings as detailed in text above. Radiation Dose CTDIVOL = (mGy): DLP = 307.88 (mGy-cm) Dictated By: Willi Fragoso Signed By: Willi Fragoso Signed Date/Time: 03/13/202032 DD/ 30 Discharge Plan Discharge Patient Disposition: Admitted As Inpatient Admit Provider: Israel Liang Condition: Stable Coding Level of Care Code ED Stockroom Coordinator for Chg Fwd Exam Comprehensive
[2020-03-13] MEDS: ondansetron 2 mg/ML SDV 2 mL 4 MG IVP (19:54)
[2020-03-13] MEDS: morphine 4 mg/mL SDV 1 mL IVP ×2 (19:54→20:48)
[2020-03-13] MEDS: iohexol 300 mg/mL 100 mL Btl IV (20:03)
--- NOTE | 2020-03-13 20:14 | ECG_ITS ---
[facility] Test Date: 2020-03-13 Pat Name: Oscar Baumann Department: Room: Gender: Male Map Drafter: : 1960 Requested By: Glo Johnson Order Number: [id number] Adolfo MD: Travis Paris M.D. Measurements Intervals [place] Rate: 90 P: 72 MA: 140 QRS: 62 QRSD: 87 T: 65 QT: 397 QTc: 487 Interpretive Statements SINUS RHYTHM WITH OCCASIONAL SUPRAVENTRICULAR PREMATURE COMPLEXES NONSPECIFIC ST & T-WAVE ABNORMALITY Compared to ECG 02/15/2020 08:46:30 T-wave abnormality now present Prolonged QT interval no longer present Electronically Signed On 03-14-2020 20:03:20 THEORETICAL PHYSICIST by Travis Paris M.D. [id number]
[2020-03-13 20:15] LABS: Basophils % 0.3 %; Eosinophils % 0.2 %; Hematocrit 32.6 % (42.0-52.0); Hemoglobin 10.1 g/dL (11.7-16.6); Lymphocytes # 2.5 10^3/uL (0.8-4.8); Mean Corpuscular Hemoglobin 28.1 pg (28.0-34.0); Mean Corpuscular Volume 90.6 fL (80-94); Mean Platelet Volume 10.1 fL (7.4-10.4); Monocytes # 0.5 10^3/uL (0.2-0.9); Monocytes % 5.6 %; Neutrophils # 6.01 10^3/uL (1.8-7.7); Neutrophils % 65.3 %; Nucleated Red Blood Cells # 0.1 /100WBC; Nucleated Red Blood Cells % 0.5 %; Platelet Count 796 10^3/cmm (130-400); Red Cell Distribution Width 15.1 % (12.1-15.1); White Blood Count 9.2 10^3/uL (4.0-10.0)
[2020-03-13 20:26] LABS: Alanine Aminotransferase 11 U/L (0-41); Albumin Level 2.8 g/dL (3.5-5.2); Alkaline Phosphatase 154 IU/L (40-130); Anion Gap 18.8 (5-19); Aspartate Amino Transferase 23 U/L (0-40); Blood Urea Nitrogen 15 mg/dL (8-23); Calcium 8.4 mg/dL (8.5-10.5); Carbon Dioxide 27 mmol/L (22-29); Chloride 97 mmol/L (98-107); Globulin 2.8 g/dL (1.3-4.6); Glomerular Filtration Rate 169.6 mL/min (90-130); Glucose 128 mg/dL (65-115); Lipase 133 U/L (13-60); Magnesium 1.7 mg/dL (1.7-2.3); Osmolality Calculated 290 mOsm/kg (285-295); Potassium 3.8 mmol/L (3.5-5.1); Sodium 139 mmol/L (136-145); Total Bilirubin 0.2 mg/dL (0.15-1.2); Total Protein 5.6 g/dL (6.6-8.7)
[2020-03-13] MEDS: pantoprazole 40 mg SDV 80 MG IVP (20:35)
[2020-03-13] MEDS: piperacillin-tazobactam 3.375 GM in sodium chloride 0.9% (plus) 50 ML IV (20:36)
--- NOTE | 2020-03-13 20:51 | P.CONIM_ITS ---
Providers/Reason For Consult Consulting Physican/Specialty*: Manuelito Berger MD Reason for Consult*: Post splenectomy fluid collection Requesting Physcian: Dr. Delong Primary Care Provider: Donald Dominguez MD History of Present Illness History of Present Illness Chief Complaint: I am hurting History of present illness: Oscar Baumann is a 60 year old male undergone exploratory laparotomy February 14 in [facility] as he did sustain a blunt trauma to the abdomen ended up by splenic injury and patient undergone a splenectomy eventually at that point there was no other sustained injuries per reporting. Patient has been on chronic Eliquis therapy for his cardiac condition and that was resumed postoperatively. Recently was seen by his surgical team about a week ago or so per his daughter's description and the patient showed appropriate clinical course postoperatively yet about 3 to 4 days ago he started to have worsening abdominal pain particularly on the right side, he presented to the emergency department where a CT scan of the abdomen and pelvis was done and showed: 1. Large left subdiaphragmatic abscess measuring 14.4 cm x 9.4 cm x 10.8 cm. 2. Subcapsular fluid collection equator left kidney measuring 55 mm x 23 mm x 42 mm. This could reflect a subcapsular hematoma/seroma; however, the close approximation to the subdiaphragmatic abscess raise the potential for a subcapsular abscess. 3. Pneumoperitoneum. 4. Small volume intraperitoneal ascites. 5. Status post splenectomy. 6. Chronic pancreatitis. 7. Portal venous hypertension. 8. Infrarenal fusiform abdominal aortic aneurysm extending into the iliac arteries as detailed in text above. No visible intimal flap or dissection. 9. Other nonurgent, nonemergent, chronic, and age related findings as detailed in text above. Patient reports passage of black stool and had a remote history of peptic ulcer disease that he denies hematemesis At this point it is known that [facility] hospitals are on divert according to the ER reporting and general surgery at times he was consulted for further evaluation and potential intervention Review of Systems General: Reports: 10 or more systems reviewed and unremarkable except in HPI and below Meds/Allergies Home Medications and Allergies Home Medications Medication Instructions Recorded Confirmed Last Taken Type isosorbide mononitrate 15 mg PO DAILY 09/19/19 03/13/20 03/13/20 History [id number]-[id number]-[id number] 1 cap PO BID #180 cap 11/08/19 03/13/20 03/13/20 Rx 10,000-32,000-42,000 unit capsule,delayed rel fluoxetine 20 mg capsule 20 mg PO DAILY 30 Days #30 cap 12/15/19 03/13/20 03/13/20 Rx metoprolol tartrate 25 mg tablet 25 mg PO BID 30 Days #60 tab 12/15/19 03/13/20 03/13/20 Rx apixaban [Eliquis] 5 mg PO DAILY 03/13/20 03/13/20 03/13/20 History hydroxyzine HCl 25 mg PO BID 03/13/20 03/13/20 03/13/20 History lisinopril 5 mg PO DAILY PRN 03/13/20 03/13/20 Unknown History meclizine 12.5 mg PO TID PRN 03/13/20 03/13/20 Unknown History multivitamin [Daily-Tawanna] 1 tab PO DAILY 03/13/20 03/13/20 03/13/20 History nitroglycerin [Nitrostat] 0.4 mg SUBLINGUAL Q5M PRN 03/13/20 03/13/20 Unknown History vitamin B complex 1 tab PO DAILY 03/13/20 03/13/20 03/13/20 History Allergies Allergy/AdvReac Type Severity Reaction Status Date / Time hydromorphone [From Dilaudid] AdvReac Severe hallucinati Verified 03/13/20 21:35 on PFSH Acute PFSH: Medical History (Updated 03/13/20 @ 21:06 by Israel Liang MD) COPD (chronic obstructive pulmonary disease) Coronary artery disease CVA (cerebral vascular accident) Residual left-sided weakness Encounter for observation for other suspected diseases and conditions ruled out Hypertension Surgical History (Updated 03/13/20 @ 21:06 by Israel Liang MD) H/O splenectomy Post PTCA Social History Smoking and tobacco status: current every day smoker cigarettes Packs smoked per day: 1 Years cigarettes smoked: 45 Quit status (tobacco): has tried quititng Number of times tried to quit tobacco: 5 Second hand smoke exposure: No Smoking risk assessment/counseling performed?: No Alcohol intake: current Alcohol intake frequency: 3 or more drinks per day Alcohol type: hard liquor Current gender identity: Male Vitals/I&O/Wt Last Vital Signs Temp 98.7 F 03/13/20 19:29 Pulse 96 03/13/20 20:49 Resp 18 03/13/20 20:49 BP 122/76 03/13/20 20:49 Pulse Ox 96 03/13/20 20:49 Weight last 48 hrs Weight 135 lb Physical Exam Narrative: EXAM NARRATIVE: Patient is conscious alert oriented X3 BMI 22 Head and neck examination PERRLA no masses no cervical lymphadenopathy no jaundice Cardiac examination audible S1-S2 no murmurs no gallops no arrhythmias Chest is clear bilateral,abscence of Rhonchi or wheezes,no surgical emphysema Abdomen right-sided tenderess w guarding, left upper quadrant mild tenderness Otherwise soft examination and no organomegaly or abdominal distention Extremities no cyanosis no clubbing no edema A&P Assessment and plan (1) Peritonitis: 0930 pm After thorough history physical examination and reviewing the chart and images with my personal interpretation and given the fact that the patient did have black stools, likely he did have a perforated duodenal or gastric ulcer that may have walled off. I did discuss with the patient and his daughter which is the power of criminal defense attorney as well as his sister in length and in depth about potential surgical intervention for urgent matter due to the clinical signs and symptoms yet he elected to wait with the potential benefit of IV fluids and IV antimicrobial therapy with the plan to repeat the scan in few hours yet with oral contrast to identify if the patient had an ulcer that may potentially had walled off. Understanding that the patient may deteriorate clinically and perioperative mortality is being higher, also they do understand giving the fact that the patient have varices intra-abdominal due to his chronic alcoholism he may bleed intraoperatively particularly that he has been on Eliquis yet they do understand that the reversal agent for Eliquis is being available for infusion when needed. The discussion took place in the presence of Dr. Amaya the hospitalist admitting physician and Ms. Hdez the nursing staff, Dr. Delong was updated as well with the plan of care. At this point patient and his daughter are willing to take the chance for conservative measures We will place the patient on PPI drip Broad-spectrum antibiotic Repeated physical examination We will repeat the CT scan with oral contrast over the coming few hours Strict I's and O Assurance and education All questions have been answered and all concerns have been addressed to patient's satisfaction. Status: Acute Consult Attestations Medical Necessity Statement: Patient require inpatient admission overnight for IV fluid resuscitation potential surgical intervention Time Spent in Patient Care: 16 - 35 minutes (>than 50% of time spent in counselling and/or direct pt care on unit) . Coding Level of Care Code Acute Open Hearth Furnace Laborer for Chg Fwd Diagnoses Peritonitis K65.9
--- NOTE | 2020-03-13 21:01 | P.HP_ITS ---
Providers/Chief Complaint Primary Care Provider: Donald Dominguez MD Chief Complaint: ruq pain and black stools History of Present Illness Oscar Baumann is a 60 year old male who has history of alcohol abuse, peptic ulcer disease, infrarenal AAA, hypertension, COPD, suicide attempt in the past, recently had splenectomy at [facility] coming in today for worsening abdominal pain. 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 Patient is stating that for last 3 to 4 days he has been experiencing abdominal pain which was associated with nausea, he did not experience any emesis, his abdominal pain was in right upper quadrant which gradually got worse and became diffuse, he has been noticing black tarry stools as well. Due to these complaints he decided to come to the hospital for further evaluation. Diagnosis in the ER revealed normal hemodynamics, he was not septic, CT abdomen pelvis was done which showed large subdiaphragmatic abscess 14 cm x 9.4 cm x 10.8 cm with several capsular fluid collection around a culture of left kidney reflecting seroma/hematoma, pneumoperitoneum infrarenal AAA General surgery evaluated the patient right away in the ER, patient opted for conservative management with IV antibiotics, fluids, CT scan with contrast in the morning, daughter was present at the bedside, Patient was started on vancomycin and imipenem, Protonix drip was initiated, Review of Systems Const: Reports: body aches and fatigue; Denies: fever(s) or chills Eyes: Denies: change in vision ENMT: Denies: throat pain Card: Denies: chest pain Resp: Denies: dyspnea GI: Reports: abdominal pain, nausea and melena; Denies: vomiting, diarrhea, constipation or hematochezia : Denies: flank pain Musc: Denies: neck pain Skin/Breast: Denies: rash Neuro: Denies: headache(s) Psych: Denies: anxiety Endo: Denies: polyuria Kenny/Lymph: Denies: easy bruising All/Imm: Denies: urticaria Medications/Allergies Home Medications Medication Instructions Recorded Confirmed Last Taken Type isosorbide mononitrate 15 mg PO DAILY 09/19/19 03/13/20 03/13/20 History [id number] 1 cap PO BID #180 cap 11/08/19 03/13/20 03/13/20 Rx 10,000-32,000-42,000 unit capsule,delayed rel fluoxetine 20 mg capsule 20 mg PO DAILY 30 Days #30 cap 12/15/19 03/13/20 03/13/20 Rx metoprolol tartrate 25 mg tablet 25 mg PO BID 30 Days #60 tab 12/15/19 03/13/20 03/13/20 Rx apixaban [Eliquis] 5 mg PO DAILY 03/13/20 03/13/20 03/13/20 History hydroxyzine HCl 25 mg PO BID 03/13/20 03/13/20 03/13/20 History lisinopril 5 mg PO DAILY PRN 03/13/20 03/13/20 Unknown History meclizine 12.5 mg PO TID PRN 03/13/20 03/13/20 Unknown History multivitamin [Daily-Tawanna] 1 tab PO DAILY 03/13/20 03/13/20 03/13/20 History nitroglycerin [Nitrostat] 0.4 mg SUBLINGUAL Q5M PRN 03/13/20 03/13/20 Unknown History vitamin B complex 1 tab PO DAILY 03/13/20 03/13/20 03/13/20 History Allergies Allergy/AdvReac Type Severity Reaction Status Date / Time hydromorphone [From Dilaudid] AdvReac Severe hallucinati Verified 03/13/20 21:35 on PFSH Acute PFSH: Medical History COPD (chronic obstructive pulmonary disease) Coronary artery disease CVA (cerebral vascular accident) Residual left-sided weakness Encounter for observation for other suspected diseases and conditions ruled out Hypertension Surgical History H/O splenectomy Post PTCA Family History (Updated 03/13/20 @ 23:40 by Israel Liang MD) Other No pertinent family history Social History Smoking and tobacco status: current every day smoker cigarettes Packs smoked per day: 1 Years cigarettes smoked: 45 Quit status (tobacco): has tried quititng Number of times tried to quit tobacco: 5 Second hand smoke exposure: No Smoking risk assessment/counseling performed?: No Alcohol intake: current Alcohol intake frequency: 3 or more drinks per day Alcohol type: hard liquor Current gender identity: Male Vitals/I&O/Wt Last Vital Signs Temp 98.7 F 03/13/20 19:29 Pulse 96 03/13/20 20:49 Resp 18 03/13/20 20:49 BP 122/76 03/13/20 20:49 Pulse Ox 96 03/13/20 20:49 Weight last 48 hrs Weight 61.235 kg Physical Exam Narrative: EXAM NARRATIVE: This is a very pleasant elderly male Currently not active distress apparent when I entered the room Daughter is at the bedside Patient looks dehydrated Saturating well on room air S1, S2 no tachycardia or signs of heart failure Abdomen, tender on superficial palpation in all quadrants, laparotomy scar without any active drainage, rigidity and muscle guarding positive No acute respiratory distress Lower extremity no edema gangrene or ulcer Awake alert oriented x3 GCS 15 EOMI, PERRLA Appropriate mood and affect Data : 03/13/20 19:11 03/13/20 19:11 A&P Assessment and plan (1) Peritonitis: Status: Acute (2) Subdiaphragmatic abscess: Status: Acute (3) Pneumoperitoneum: Status: Acute (4) Abdominal aneurysm: Status: Acute Additional A&P Information Acute peritonitis Patient has clinical signs of peritonitis without sepsis, CT abdomen revealed subdiaphragmatic left-sided large abscess, Patient and his daughter opted for conservative management IV antibiotics for now General surgery has evaluated the patient in the ER, I would start him on broad-spectrum antibiotics considering splenectomy, I would use vancomycin and imipenem Started on D5 half-normal saline fluid resuscitation Black tarry stool Hemoglobin seems to be around baseline, no hemodynamic instability, Protonix drip Patient has history of alcoholism, and peptic ulcer disease Renal capsular hematoma/seroma evident on CT abdomen/pelvis Monitor hemoglobin, next H&H at 1 AM Patient took Eliquis in the morning, considering history of AAA, black tarry stool, risk of bleeding and complications outweigh the benefit at this point, Discontinue Eliquis, if hemoglobin drops my threshold to use reversal agent will be low AAA Hemodynamically stable, Discontinued anticoagulant agent Patient carries high mortality and morbidity risk factors due to multiple comorbid conditions and post splenectomy status Analgesia with Dilaudid, patient is stating that he felt goofy after taking Dilaudid in the past, he did well after 1 dose of Dilaudid in the ER, morphine is unable to control his symptoms N.p.o. Full code DVT prophylaxis not indicated, SCDs for now Extensive discussion took place in the ER in the presence of patient's daughter and general surgeon, complications, risk factors for increased mortality and morbidity and plan was discussed, all questions were answered to the satisfaction of the patient Attestations Medical Necessity Statement*: Anticipating stay in the hospital cross more than 2 midnights currently need overnight ICU monitoring for multiple comorbid conditions, peritonitis, subdiaphragmatic abscess Time Spent in Patient Care: (>than 50% of time spent in counselling and/or direct pt care on unit) . 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
[2020-03-13] MEDS: sodium chloride 0.9% 1,000 ML 999 ML IV (21:34)
[2020-03-13] MEDS: metroNIDAZOLE IV 500 MG/100 ML PREMIX 100 MG IV (21:35)
[2020-03-13 22:14] LABS: Partial Thromboplastin Time 34.5 SECONDS (23.9-36.7)
[2020-03-13 22:24] LABS: Lactic Sepsis W/Reflex 1.6 mmol/L (0.5-2.2)
[2020-03-13 22:34] LABS: Alcohol Level < 10 mg/dL (0-10)
[2020-03-13] MEDS: HYDROmorphone 1 mg/mL INJ 1 mL IVP ×2 (22:40)
--- NOTE | 2020-03-13 22:47 | PC.NURSE ---
2mg Hydromorphone was ordered by Dr. Liang. He was made aware of patients allergy and gave order to give med anyway.
[2020-03-14] VITALS (76 sets, daily range): BP systolic 80–134; BP diastolic 57–98; PULSE 51–137; RESP 17–69; TEMP 36.5–37; O2SAT 76–100
[2020-03-14] MEDS: sodium chloride 0.9% 1,000 ML 100 ML IV ×2 (00:22→16:02)
[2020-03-14] MEDS: dextrose 5%-sod chloride 0.45% 1,000 ML 30 ML IV (00:49)
--- NOTE | 2020-03-14 00:52 | PC.PHAR ---
Vancomycin is dosed at 1500mg IVPB every 12 hours to produce a predicted trough of 13.13 (population based pharmacokinetic analysis). A trough level has been ordered from the lab to be collected before the fourth dose to confirm and adjust if needed.
[2020-03-14] MEDS: pantoprazole 40 MG in sodium chloride 0.9% (plus) 100 ML 20 MG IV ×5 (01:05→20:16)
[2020-03-14 01:10] LABS: Hematocrit 33.7 % (42.0-52.0); Hemoglobin 10.4 g/dL (11.7-16.6)
--- NOTE | 2020-03-14 01:13 | PC.NURSE ---
Admit Note Patient brought to ICU from ER with ER staff. Alert and oriented x4. Able to follow commands but states he is tired. Kennedy cath started per orders. Nursing Admission and physical completed. IV to right AC was pulled out during transfer. Pressure applied and cath intact. Patient is resting comfortably, resp even.
[2020-03-14] MEDS: iohexol 300 mg/mL 50 mL Btl PO (02:17)
[2020-03-14] MEDS: HYDROmorphone 1 mg/mL INJ 1 mL 2 MG IVP (03:36)
[2020-03-14] MEDS: iodixanol 320 mg/mL 100mL Btl IV (03:57)
--- NOTE | 2020-03-14 04:00 | CTR_ITS ---
PROCEDURE INFORMATION: Exam: CT Abdomen And Pelvis With Contrast Exam date and time: 03/14/2020 2:12 AM Age: 60 years old Clinical indication: Abdominal pain; Generalized; Prior surgery; Surgery type: Hernia, stents; Patient HX: R/O underlying perforated duodenal or gastric ulcer TECHNIQUE: Imaging protocol: Computed tomography of the abdomen and pelvis with intravenous contrast. Radiation optimization: All CT scans at this facility use at least one of these dose optimization techniques: automated exposure control; mA and/or kV adjustment per patient size (includes targeted exams where dose is matched to clinical indication); or iterative reconstruction. Contrast material: VISI; Contrast volume: 75 ml; Contrast route: INTRAVENOUS (IV); Other contrast: Oral, omni 300, 25 ml; COMPARISON: CT abdomen pelvis w con* [id number] 03/13/2020 8:01 PM RADIATION DOSE METRICS: Total DLP (mGy-cm): 397.03 FINDINGS: Lungs: There are patchy and strandy opacities present in the lung bases bilaterally likely representing atelectasis although bilateral basilar pneumonia cannot be excluded. Pleural space: There are small bilateral pleural effusions, right slightly larger than left. Liver: See Intraperitoneal space finding. Gallbladder and bile ducts: Normal. No calcified stones. No ductal dilation. Pancreas: Coarse calcifications are seen within the pancreas compatible with chronic pancreatitis. There is a small pseudocyst seen within the pancreatic head measures 1.7 cm in diameter. Spleen: There is a rounded soft tissue density mass present subjacent to the abscess measuring approximately 2.1 cm in diameter likely representing a splenule. Adrenal glands: Normal. No mass. Kidneys and ureters: Stable subcapsular fluid collection seen within the anterior aspect of the left kidney. No hydronephrosis. Stomach and bowel: Unremarkable. No obstruction. No mucosal thickening. Appendix: No evidence of appendicitis. Intraperitoneal space: There is free intra-abdominal air present. There is intermediate attenuation free fluid seen adjacent to the liver and within the pelvis compatible with hemorrhagic fluid. Some hyperdense fluid is seen extending along the right anterior flank extending into the iliac fossa compatible with extravasated contrast material. Hyperdense fluid is also seen along the inferior margin of the liver compatible with extraluminal oral contrast material. This raises suspicion for a perforated viscus. There is a large subdiaphragmatic fluid collection seen on the left similar to that present in yesterday's examination worrisome for a subdiaphragmatic abscess. Today, it measures 9.8 cm transverse dimension by 13.3 cm AP dimension by 10.3 cm craniocaudal dimension. There is a suture line seen adjacent to the inferior aspect of the abscess. There is a blush of increased density seen along the inferior aspect of the abscess possibly representing some hemorrhagic material. Some extravasated contrast material is seen within the inferior medial aspect of the abscess is well. Vasculature: There is a stable infrarenal abdominal aortic aneurysm and aneurysmal dilatation of the right iliac artery. There is no evidence for extravasation or dissection. Lymph nodes: Unremarkable. No enlarged lymph nodes. Urinary bladder: Kennedy catheter is present. The bladder appears decompressed. Reproductive: Unremarkable as visualized. Bones/joints: There is evidence of rib fractures bilaterally. Soft tissues: See Intraperitoneal space finding. CT/CT abdomen pelvis w con* [id number] IMPRESSION: 1. There is a large abnormal subdiaphragmatic fluid collection within the splenic fossa worrisome for a splenic abscess. It appears similar today compared with yesterday's examination. However, there are some hyperdensities seen along the inferior aspect of the abscess that suggest the presence of hemorrhagic material. 2. Intermediate attenuation fluid is seen adjacent to the liver extending along the right flank and into the iliac fossa and pelvis worrisome for hemorrhagic fluid. 3. There is free intra-abdominal air present. 4. There is hyperdense fluid present along the right anterior abdominal wall as well as along the inferior margin of the left hepatic lobe compatible with extraluminal oral contrast material. This finding suggests a perforated viscus. 5. Strandy and patchy opacities in the lung bases bilaterally likely represents atelectasis although bilateral basilar pneumonia cannot be excluded. 6. Small bilateral pleural effusions 7. Coarse calcifications within the pancreas compatible with chronic pancreatitis. A small pseudocyst is seen in the pancreatic head measuring 1.7 cm. 8. Stable infrarenal abdominal aortic aneurysm and aneurysmal dilatation of right common iliac artery. 9. Stable subcapsular fluid collection seen adjacent to the left kidney. Radiation Dose CTDIVOL = (mGy): DLP = 397.03 (mGy-cm)
[2020-03-14] MEDS: factor xa, inactivated-zhzo 400 MG in empty flexible container 1 EACH, non-DEHP filter ... 180 MG IV (05:15)
--- NOTE | 2020-03-14 05:22 | P.ANESASSM_ITS ---
Pre-Anesthetic Assessment Pre-Anesthetic Assessment: Height/Weight: Height 1.68 m Weight 61.235 kg Temp Pulse Resp BP Pulse Ox 98.6 F 107 H 25 H 120/87 96 03/14/20 00:19 03/14/20 04:00 03/14/20 04:00 03/14/20 04:00 03/14/20 04:00 Preop Diagnosis: Sepsis Proposed Procedure: Ex lap Familial anesthetic complications: None Last intake: NPO Social: Social History: Alcohol and Tobacco Exam: Pre-Anes Outpt Exam: alert, oriented x 3, clear to auscultation bilaterally and regular rate & rhythm Airway: Cervical ROM: WNL MP: 2 Dentition: False Pulmonary: Pulmonary: COPD CV/HEM: CV/HEM: CAD and HTN Comments: took eliquis yesterday morning Metabolic: Comments: sepsis Neuropsych: Neuropsych: CVA (l sided weakness) Anesthetic Plan: ASA status: 4E Anesthesia: General Risk of > 500 ml blood loss (7ml/kg in children): No Meds/Allergies Current Medications: Current Medications Generic Name Dose Route Start Last Admin Trade Name Freq PRN Reason Stop Dose Admin Hydromorphone HCl 2 mg 03/14/20 00:28 03/14/20 03:36 Hydromorphone 1 Mg/Ml Inj 1 Ml IVP 2 mg Q4H PRN Administration pain Sodium Chloride 1,000 mls @ 100 m ls/hr 03/13/20 19:45 03/14/20 00:22 Sodium Chloride 0.9% IV 100 mls/hr .Q10H VINNIE Administration Dextrose/Sodium Ch loride 1,000 mls @ 30 ml s/hr 03/14/20 00:28 03/14/20 00:49 Dextrose 5%-Sod Chloride 0.45% IV 30 mls/hr .Q24H VINNIE Administration Imipenem/Cilastati n Sodium 500 100 mls @ 200 mls /hr 03/14/20 00:28 03/14/20 04:17 mg/ Sodium Chlor ching IV Infused Q12H VINNIE Infusion Vancomycin HCl 1,5 00 mg/ 250 mls @ 250 mls /hr 03/14/20 02:00 03/14/20 04:17 Sodium Chloride IV Infused Q12H VINNIE Infusion Protocol As Directed Pantoprazole Sodiu m 40 mg/ 100 mls @ 20 mls/ hr 03/14/20 00:28 03/14/20 01:05 Sodium Chloride IV 8 mg/hr .Q5H VINNIE 20 mls/hr Administration 8 MG/HR PFSH Anesthesia PFSH: Medical History COPD (chronic obstructive pulmonary disease) Coronary artery disease CVA (cerebral vascular accident) Residual left-sided weakness Encounter for observation for other suspected diseases and conditions ruled out Hypertension Surgical History H/O splenectomy Post PTCA Family History (Updated 03/13/20 @ 23:40 by Israel Liang MD) Other No pertinent family history Social History Smoking and tobacco status: current every day smoker cigarettes Packs smoked per day: 1 Years cigarettes smoked: 45 Quit status (tobacco): has tried quititng Number of times tried to quit tobacco: 5 Second hand smoke exposure: No Smoking risk assessment/counseling performed?: No Alcohol intake: current Alcohol intake frequency: 3 or more drinks per day Alcohol type: hard liquor Current gender identity: Male Data Anesthesia CBC & Chem 7: 03/14/20 01:03 03/14/20 04:12 Other Labs: Laboratory Results - last 48 hr 03/13/20 03/13/20 03/13/20 19:11 19:11 21:43 WBC 9.2 RBC 3.60 L Hgb 10.1 L Hct 32.6 L MCV 90.6 MCH 28.1 MCHC 31.0 RDW 15.1 Plt Count 796 H MPV 10.1 Neut % (Auto) 65.3 Lymph % (Auto) 27.0 [place] % (Auto) 5.6 Eos % (Auto) 0.2 Baso % (Auto) 0.3 Neut # (Auto) 6.01 Lymph # (Auto) 2.5 [place] # (Auto) 0.5 Eos # (Auto) 0.0 Baso # (Auto) 0.0 Nucleated RBC % (auto) 0.5 Nucleated RBCs # 0.1 PT INR APTT Sodium 139 Potassium 3.8 Chloride 97 L Carbon Dioxide 27 Anion Gap 18.8 BUN 15 Creatinine 0.5 L GFR Calculation 169.6 H Glucose 128 H Calculated Osmolality 290 Lactic Acid 1.6 Calcium 8.4 L Magnesium 1.7 Total Bilirubin 0.2 AST 23 ALT 11 Alkaline Phosphatase 154 H Total Protein 5.6 L Albumin 2.8 L Globulin 2.8 Lipase 133 H Urine Color Urine Appearance Urine pH Ur Specific [place] Urine Protein Urine Glucose (UA) Urine Ketones Urine Blood Urine Nitrate Urine Bilirubin Urine Urobilinogen Ur Leukocyte Esterase Ethyl Alcohol Blood Type Rho(D) Type Antibody Screen Crossmatch 03/13/20 03/13/20 03/13/20 21:43 21:43 21:43 WBC RBC Hgb Hct MCV MCH MCHC RDW Plt Count MPV Neut % (Auto) Lymph % (Auto) [place] % (Auto) Eos % (Auto) Baso % (Auto) Neut # (Auto) Lymph # (Auto) [place] # (Auto) Eos # (Auto) Baso # (Auto) Nucleated RBC % (auto) Nucleated RBCs # PT 15.60 H INR 1.20 APTT 34.5 Sodium Potassium Chloride Carbon Dioxide Anion Gap BUN Creatinine GFR Calculation Glucose Calculated Osmolality Lactic Acid Calcium Magnesium Total Bilirubin AST ALT Alkaline Phosphatase Total Protein Albumin Globulin Lipase Urine Color Urine Appearance Urine pH Ur Specific [place] Urine Protein Urine Glucose (UA) Urine Ketones Urine Blood Urine Nitrate Urine Bilirubin Urine Urobilinogen Ur Leukocyte Esterase Ethyl Alcohol < 10 Blood Type B Positive Rho(D) Type Positive Antibody Screen Negative Crossmatch See Detail 03/13/20 03/14/20 22:56 01:03 WBC RBC Hgb 10.4 L Hct 33.7 L MCV MCH MCHC RDW Plt Count MPV Neut % (Auto) Lymph % (Auto) [place] % (Auto) Eos % (Auto) Baso % (Auto) Neut # (Auto) Lymph # (Auto) [place] # (Auto) Eos # (Auto) Baso # (Auto) Nucleated RBC % (auto) Nucleated RBCs # PT INR APTT Sodium Potassium Chloride Carbon Dioxide Anion Gap BUN Creatinine GFR Calculation Glucose Calculated Osmolality Lactic Acid Calcium Magnesium Total Bilirubin AST ALT Alkaline Phosphatase Total Protein Albumin Globulin Lipase Urine Color Yellow Urine Appearance Clear Urine pH 6.5 Ur Specific [place] 1.010 Urine Protein Neg Urine Glucose (UA) Norm Urine Ketones Negative Urine Blood Neg Urine Nitrate Negative Urine Bilirubin Neg Urine Urobilinogen Norm Ur Leukocyte Esterase Negative Ethyl Alcohol Blood Type Rho(D) Type Antibody Screen Crossmatch Micro: Microbiology 03/13/20 21:56 Blood Culture - Preliminary Blood SPECIMEN COLLECTED 03/13/20 21:56 Blood Culture - Preliminary Blood SPECIMEN COLLECTED Cardiac Studies: No Data to Display
--- NOTE | 2020-03-14 05:27 | PM.PN ---
Subjective Subjective: Interval history: Overall feels slightly better. CT scan of the abdomen pelvis with oral contrast showed: 1. There is a large abnormal subdiaphragmatic fluid collection within the splenic fossa worrisome for a splenic abscess. It appears similar today compared with yesterday's examination. However, there are some hyperdensities seen along the inferior aspect of the abscess that suggest the presence of hemorrhagic material. 2. Intermediate attenuation fluid is seen adjacent to the liver extending along the right flank and into the iliac fossa and pelvis worrisome for hemorrhagic fluid. 3. There is free intra-abdominal air present. 4. There is hyperdense fluid present along the right anterior abdominal wall as well as along the inferior margin of the left hepatic lobe compatible with extraluminal oral contrast material. This finding suggests a perforated viscus. 5. Strandy and patchy opacities in the lung bases bilaterally likely represents atelectasis although bilateral basilar pneumonia cannot be excluded. 6. Small bilateral pleural effusions 7. Coarse calcifications within the pancreas compatible with chronic pancreatitis. A small pseudocyst is seen in the pancreatic head measuring 1.7 cm. 8. Stable infrarenal abdominal aortic aneurysm and aneurysmal dilatation of right common iliac artery. 9. Stable subcapsular fluid collection seen adjacent to the left kidney. Vitals/I&O/Wt Last Vital Signs Temp 98.6 F 03/14/20 00:19 Pulse 107 H 03/14/20 04:00 Resp 25 H 03/14/20 04:00 BP 120/87 03/14/20 04:00 Pulse Ox 96 03/14/20 04:00 03/13/20 03/13/20 03/14/20 14:59 22:59 06:59 Intake Total 50 / 50 1450 / 1500 Balance 50 / 50 1450 / 1500 Weight last 48 hrs Weight 135 lb Physical Exam Narrative: EXAM NARRATIVE: Patient is conscious alert oriented X3 BMI 22 Head and neck examination PERRLA no masses no cervical lymphadenopathy no jaundice Cardiac examination audible S1-S2 no murmurs no gallops no arrhythmias Chest is clear bilateral,abscence of Rhonchi or wheezes,no surgical emphysem Abdomen tender mostly on the right side consistent with peritonitis Kennedy Catheter in place with clear Extremities no cyanosis no clubbing no edema Urinary Catheter Management^: Kennedy: Cath Placed During This Visit: yes Urinary Catheter Date of Insertion: 03/14/20 Urinary Catheter Time of Insertion: 00:46 Data : 03/14/20 01:03 03/13/20 19:11 Micro: Microbiology 03/13/20 21:56 Blood Culture - Preliminary Blood SPECIMEN COLLECTED 03/13/20 21:56 Blood Culture - Preliminary Blood SPECIMEN COLLECTED A&P Assessment and plan (1) Peritonitis: 0510am After reviewing the scans with my personal interpretation and discussing with the on-call radiologist via the phone and evaluating the patient clinically patient will require exploratory laparotomy with possible bowel resection possible colostomy. Did discuss with the patient's daughter Jenny presence of caring nurse CHENTE Huff in the presence of the patient,bedside phone was used. As risks benefits and alternatives were discussed understanding the risk of surgery and potential vegetative state postoperatively being dependent on mechanical ventilation and may require tracheostomy also the potential need for future surgeries and the high risk of mortality and morbidity associated with surgery. Patient and the daughter decided to proceed with surgery and after discussing further with other family members Proceed with the reversal agent of Elquis before surgery Informed consent per chart Status: Acute Attestations Medical Necessity Statement*: Inpatient hospitalization requiring passing 2 midnights for continuity of medical and surgical care Time Spent in Patient Care: 16 - 35 minutes (>than 50% of time spent in counselling and/or direct pt care on unit). 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
[2020-03-14 05:34] LABS: Hematocrit 32.8 % (42.0-52.0); Hemoglobin 10.1 g/dL (11.7-16.6); Mean Corpuscular HGB Conc 30.8 g/dL (30.0-36.0); Mean Corpuscular Hemoglobin 27.9 pg (28.0-34.0); Mean Corpuscular Volume 90.6 fL (80-94); Mean Platelet Volume 10.2 fL (7.4-10.4); Platelet Count 737 10^3/cmm (130-400); Red Blood Count 3.62 10^6/uL (4.1-5.3); Red Cell Distribution Width 15.2 % (12.1-15.1); White Blood Count 26.6 10^3/uL (4.0-10.0)
[2020-03-14 05:41] LABS: Alanine Aminotransferase 9 U/L (0-41); Albumin Level 2.4 g/dL (3.5-5.2); Alkaline Phosphatase 116 IU/L (40-130); Anion Gap 17.1 (5-19); Aspartate Amino Transferase 18 U/L (0-40); Blood Urea Nitrogen 14 mg/dL (8-23); Calcium 7.6 mg/dL (8.5-10.5); Carbon Dioxide 24 mmol/L (22-29); Chloride 100 mmol/L (98-107); Globulin 2.6 g/dL (1.3-4.6); Glomerular Filtration Rate 219.4 mL/min (90-130); Glucose 115 mg/dL (65-115); Osmolality Calculated 285 mOsm/kg (285-295); Potassium 4.1 mmol/L (3.5-5.1); Sodium 137 mmol/L (136-145); Total Bilirubin 0.3 mg/dL (0.15-1.2)
--- NOTE | 2020-03-14 05:45 | PC.NURSE ---
Andexxa bolus started at in ICU and infused in OR.
[2020-03-14] MEDS: factor xa, inactivated-zhzo 480 MG in empty flexible container 1 EACH, non-DEHP filter ... 25 MG IV (06:00)
--- NOTE | 2020-03-14 06:06 | PC.NURSE ---
Surgery Patient transferred to surgery at this time. Andexxa bolus and drip was given to surgery staff before patient left ICU. Consent signed and completed. Spoke with Jenny, daughter, at bedside on the phone for surgery consent with Dr. Clemons.
[2020-03-14 07:30] LABS: Slide Review Slide Review Perform
[2020-03-14 07:31] LABS: Absolute Neutrophil 26.3 10^3/cmm (1.4-6.5); Absolute Segmented Neutrophil 9.3 10/cmm (1.6-7.1); Monocytes Absolute 0.3 10^3/cmm (0.1-0.6); Platelet Estimate Increased (Normal); Polychromasia 1+; Segmented Neutrophils 35 %; Total Cells Counted 100 (0-100)
[2020-03-14 07:34] LABS: Eosinophils 0 %; Lymphocytes 0 %
--- NOTE | 2020-03-14 07:52 | P.OP_ITS ---
Operative Report Date of procedure: March 14, 2020 Pre-op Diagnosis: Sepsis Post-op diagnosis: other (Perforated duodenal ulcer, left subdiaphragmatic abscess) Procedure Done: Exploratory laparotomy and closure of perforated duodenal ulcer, drainage of intra-abdominal abscess and placement of intra-abdominal drain placements Implants: Drain #1 located at the site of perforated duodenal ulcer right upper quadrant Drain #2 located in the pelvis right lower quadrant Drain #3 located in left upper quadrant at the splenectomy bed, retrogastric/subdiaphragmatic Specimens removed/disposition: Swabs for aerobes and anaerobes from intra- abdominal fluid Pathology: Swabs for aerobes and anaerobes Surgeon: Manuelito Berger Card Setter: Surgical techs Andrew Followed by Rene Gloria Circulating nurses Sofy and Rashmi Anesthesia: General (hand ornament maker is Agus and Sukhdev) Estimated blood loss (mL): 10 IV fluids (mL): 1,500 Urine output (mL): 50 Findings: Exploratory laparotomy and Corby patch for perforated duodenal ulcer Drainage of intra-abdominal abscess Placement of intra-abdominal drain Right hepatic lobe hepatoma stable Fibrinous exudates on proximal bowel loops in left lobe of the liver Intra-abdominal gastric contents mixed with contrast Left-sided diaphragmatic purulent content about 50 ml Frozen retrogastric compartment Condition: stable Disposition: ICU Procedure: The patient was brought to the operating room from the icu and was placed in a supine position on the operating room table.General endotracheal anesthesia was induced. [facility] negative pressure room and all precautions were taken, both arms were tucked and all pressure points were padded, patient already had a Kennedy catheter. The abdomen was prepped and draped in a sterile fashion. Timeout was done verifying the patient's name medical record number and procedure as well as the destination after surgery and all were in agreement, SCDs were on and functioning. Verification of Eliquis reversal agent was given prior to the procedure. A midline incision was carried out in the midepigastrium going all the way to the infraumbilical area coinciding with the previous incision. Cautery was used to divide the subcutaneous tissue and the midline fascia and the peritoneal cavity was entered. Some residual sutures were removed. There was a large amount of pus revealed and swabs were taken for cultures aerobes and anaerobes. Incision was extended cephalad. Suction was applied, and I was able to identify the underlying viscera with lots of fibrinous exudates underlying the left lobe of the liver and on top of the proximal small bowel and the stomach. A perforated duodenal ulcer of the first part was identified. At this point I elected to place the Bookwalter self-retaining retractor for better exposure. I was able to identify the left-sided diaphragmatic fluid collection which was large abscess cavity with about 50 mL of pus that I was able to peel the surrounding increasing tissues and identified frozen retrogastric area but a wide window was appreciated and suction was applied to the underlying cavity content and irrigation was applied, this point I elected to place a 19 Mongolian round Umair drain onto that cavity the retrogastric and subdiaphragmatic area for future drainage. And that was secured to the skin by 2-0 nylon. Attention now was deviated towards the anterosuperior aspect of the duodenum first part that measured perhaps 5 mm in diameter. Palpation revealed no obvious neoplasm. The defect was closed with several interrupted sutures of 3/0 silk that were tied down with a few knots each. The sutures were not cut yet. Extensive irrigation was then carried out throughout the entire abdomen until all of the return irrigant was clear. This point I did asked the anesthesia provider to insert a nasogastric tube and under direct palpation I was able to secure it in appropriate position and I asked anesthesia to inflate air using a 60 cc syringe gently and under waterseal there were no bubbles appreciated that was repeated twice and then the NG was hooked to low intermittent wall suction. A tongue of the greater omentum was brought back into the sutures at the site of the perforated ulcer and was enclosed in the same sutures such that there was now a layer of fat covering the closed defect. Additional 3-0 silk sutures inte rrupted secured the edges of the omentum to the stomach and duodenum without tension. . Copious and thorough irrigation was achieved and the bowels were ran and there was no other injuries or perforation detected. Able to identify hematoma of the right lobe of the liver without complication, I elected at this point not to obtain any biopsies. A final round of irrigation was carried out throughout the abdomen. A 19 Mongolian rounded Umair drain was brought out through a separate stab incision in the right upper quadrant and was placed between the duodenum/stomach and liver. The drain was sewn in place at the skin with suture of 2-0 nylon. Another drain was placed at the right lower quadrant towards the pelvis 19 Mongolian round the Umair and secured to the skin with 2-0 nylon Bilateral TAP (transversus abdominous plain peripheral nerve block )block using Exparel 20 mL Exparel 40 ml Normal saline 20 ml bupivacaine 0.25% The midline fascia was closed using a running looped suture of 0 PDS under direct visualization.The subcutaneous tissue was extensively irrigated and the skin was approximated using skin edgar. A sterile dressing was placed over the wound and the Umair bulb was attached to the drain. The patient was taken to the ICU in stable condition postoperatively after being extubated. NG was secured in place and Kennedy catheter was kept in place as well Count of instruments, needles and sponges was completed at the end of the procedure I was present for the whole entire procedure
--- NOTE | 2020-03-14 08:19 | PC.RESP ---
SMOKING CESSATION AND PULMONARY REHAB INFORMATION SENT TO PATIENT.
--- NOTE | 2020-03-14 08:20 | PM.PACU ---
PACU note PACU note: Direct transfer to ICU Post-Anesthesia Exam: somnolent, arousable and vital signs stable Disposition: back to floor
--- NOTE | 2020-03-14 08:23 | PC.NURSE ---
Oral airway removed, remains on simple mask at 10 L
[2020-03-14 08:57] LABS: ABG PH Result 7.24 (7.35-7.45); Alveolar-Arterial Oxygen Gradi 39.8 mmHg (5-10); Arterial Blood Gas Hematocrit 29.3 % (42-52); Base Excess ABG -8.3 mmol/L (-2.0-2.0); Blood Gas Operator Identificat AMH; Blood Gas Sample Site Brachial, right; Blood Gas Sample Type Arterial; Carboxyhemoglobin 1.8 %THgb (0.4-20.1); HCO3 ABG 18.7 mmol/L (22-26); Ionized Calcium Level - ABG 1.1 mmol/L (1.1-1.4); Methemoglobin 0.5 % (0.4-1.5); Oxygen Device AMBU; Oxygen Saturation ABG > 100.0; Potassium Level - ABG 3.9 mmol/L (3.5-5.0); Total Hemoglobin 9.6 g/dL (14-18)
--- NOTE | 2020-03-14 09:00 | XR_ITS ---
WS: [id number] Portable AP semiupright chest, 03/14/2020 Clinical Data: post code Comparison: Portable chest, 03/10/2020. Findings: The endotracheal tube is above the honorio and the nasogastric tube appears to end in the st omach. There is elevation of the left diaphragm with a consolidation in the retrocardiac region. The pulmonary vascularity is minimally prominent because of poor inspiratory effort. The heart is normal. The aortic arch and descending aorta are tortuous. Monitor leads are on the chest wall. XR/XR chest 1V portable [id number] Impression: 1. Satisfactory position of nasogastric tube and endotracheal tube. 2. Retrocardiac consolidation which may represent atelectasis and/or pneumonia. 2. Mild pulmonary vascular prominence.
--- NOTE | 2020-03-14 09:01 | XACV_ITS ---
Exam Room: [facility] Ht: 168 cm Wt: 61 kg BSA: 1.69 m2 Gender: Male : 1960 Any Known Allergies: Other Exam Priority: Routine Procedure(s): Procedure Description: Diagnostic procedure Procedure Description: PCI procedure Procedure Description: Bare Metal Coronary Stent Procedure Description: PTCA Procedure Description: Miscellaneous Procedure Description: ACT Procedure Description: Coronary Angiography Diagnostic Cath Status: Emergency Diagnostic Findings * LM has 0% stenosis. * CX has 0% stenosis. * Proximal Left Anterior Descending Coronary Artery: Severe 100% stenosis, DAWN: 0 flow. * Mid Left Anterior Descending Coronary Artery: Severe 100% stenosis, DAWN: 0 flow. * Distal Left Anterior Descending Coronary Artery: Severe 100% stenosis, DAWN: 0 flow. * RPAV: Severe 75% stenosis, DAWN: 3 flow. * Coronary angiography shows right dominance. Interventional Findings * Proximal Left Anterior Descending Coronary Artery: 100% stenosis treated with MDT INTEGRITY 4.17y30KK BMS RX and MDT INTEGRITY 4.89f51CH BMS RX. 0% residual stenosis, DAWN: 3 flow. * Mid Left Anterior Descending Coronary Artery: 100% stenosis treated with AB TREK 2.50X12 RX BALLOON, AB TREK 3.00X20 RX BALLOON, AB TREK 2.50X30 RX BALLOON, two MDT NC EUPHORA RX 3.84G21HX BALLOON, MDT INTEGRITY 3.74r43ZZ BMS RX, and MDT SPRINTER 3.53J97LH BALLOON. 0% residual stenosis, DAWN: 3 flow. * Distal Left Anterior Descending Coronary Artery: 100% stenosis treated with AB TREK 2.50X30 RX BALLOON. 0% residual stenosis, DAWN: 3 flow. Conclusions 1. There is severe coronary artery disease with two vessel disease. 2. Proximal Left Anterior Descending Coronary Artery was treated with two Bare Metal Stent. 3. Mid Left Anterior Descending Coronary Artery was treated with 6 Balloon and Bare Metal Stent. 4. Distal Left Anterior Descending Coronary Artery was treated with Balloon. 5. Patient status post emergent laparotomy for ruptured viscus who was on anticoagulation which was reversed during the surgery secondary to bleeding, patient was septic hypotensive and intubated. Soon at the end of the surgery patient became further unstable due to ST elevation in the anterior leads. He has prior LAD stents. It is the reason STEMI pager was alerted. Patient was immediately taken to the Breading Machine Tender he was noted to have clotted LAD stents. Despite of multiple balloon angioplasty after crossing with a wire and with different caliber compliant and noncompliant balloons and using Pronto catheter we were not able to restore the flow at that point I placed couple of stents which improve the flow somewhat DAWN I-II flow. I also took penumbra catheter and performed several rounds in distal to proximal LAD thrombectomy, finally I was able to restore DAWN II flow. Patient was then transferred to the ICU in a relatively stable condition on the pressors.. Recommendations * 1-Return to inpatient for close monitoring and routine cath care 2-Risk factor modification for secondary prevention 3-Statin and aspirin 81 mg life--long, if tolerated 4-Patient started on Aggrastat since he cannot take anything by mouth due to perforated ulcer surgery 5-Continue optimal medical management and pressure support . Interventional RX Recommendation: PCI w/o planned CABG Diagnostic RX Recommendation: PCI w/o planned CABG Pressures Phase:Rest AO : 107 / 80 ( 93 ) @ 4:09:00 AM 99 / 82 ( 91 ) @ 4:11:00 AM 90 / 76 ( 84 ) @ 4:16:00 AM 93 / 78 ( 85 ) @ 4:17:00 AM 89 / 79 ( 84 ) @ 4:21:00 AM 92 / 78 ( 85 ) @ 4:25:00 AM 106 / 82 ( 93 ) @ 4:29:00 AM 93 / 75 ( 83 ) @ 4:36:00 AM 99 / 79 ( 89 ) @ 4:37:00 AM 101 / 78 ( 89 ) @ 4:39:00 AM 94 / 76 ( 84 ) @ 4:59:00 AM 80 / 65 ( 72 ) @ 5:08:00 AM 87 / 72 ( 80 ) @ 5:46:00 AM 84 / 68 ( 77 ) @ 6:01:00 AM 50 / 39 ( 43 ) @ 6:07:00 AM 81 / 65 ( 73 ) @ 6:08:00 AM 82 / 68 ( 75 ) @ 6:12:00 AM 62 / 56 ( 59 ) @ 6:16:00 AM 52 / 47 ( 50 ) @ 6:17:00 AM 78 / 65 ( 72 ) @ 6:19:00 AM Clinical Evaluation EBL: 5mL-10mL Procedural Details Procedure Consent Obtained. Pre-Procedure Time Out. Does the consent match the physician's order: N/A Emergent. Accurate & Complete Informed Consent: N/A Emergent. Inpatient/Outpatient History & Physical on Chart: N/A Emergent. If H&P is completed, is and addenduem needed: N/A Emergent; If yes, is the addendum complete: N/A Emergent. Visualize and Verify Site with Patient/Guarantor: N/A. Relevant Radiology Images available: N/A Emergent. The risks, benefits, and alternatives of sedation and/or procedure were discussed by physician. The patient family agrees to continue. Verbal consent given by daughter Jenny (DPOA) for this procedure due to patient being intubated emergently. Procedure started. PERRLA. Strong, equal hand banner painter bilaterally. Lungs clear x 5 lobes. Patient arrived to labor contractor on a ventilator and will be managed by respiratiory. Anesthesia will be present to manage sedation and airway. Patient arrived with no IV access. Dr Yeager will obtain venous access as well as arterial for procedure. Pt arrived with AP pads on. Breading Machine Tender Indications: Cardiac Arrhythmia. [facility] Clinical Fraility Score: 7: Severely Frail, cardiogenic shock, VFIB arrest. Cardiovascular Instability: Yes, if yes, Hemodynamic Instability. Correct patient, site and procedure confirmed by cath team. Pre Procedural Pulses: bilateral radial was 1+. Pre Procedural Pulses: bilateral dorsalis pedis was Doppled. Pre Procedural Pulses: bilateral posterior tibial was Doppled. bilateral groins was prepped with chloroprep then draped in the usual sterile fashion. Physician arrived. Physician scrubbed in. Immediate Pre-Procedure Time Out. Correct Patient: Yes; Correct Procedure: Yes; Correct Site: Yes; Correct Patient Position: Yes; Correct Supplies: Yes; Dried Flammable Prep: Yes; Blood Products Available: N/A;. Lidocaine 1% infiltrated to the right groin. Venous access obtained with a micropuncture set. Lidocaine 1% infiltrated to the left groin. Arterial access obtained with micropuncture set. ACT drawn. Results 114 seconds. Therapeutic limits - pre-heparin administration 90-150 seconds and monitoring heparin during a vascular procedure >250 seconds. A 5 macanese JR4 catheter in over wire. Multiple views taken of right coronary artery. 6 macanese XB 3 guide catheter was inserted over the wire. Inventory is [facility] 6FR XB 3 GUIDE. Inventory is Parature XT .014 190cm Str. Guidewire. Inflation number : 1 A AB TREK 2.50X12 RX BALLOON was prepped and advanced across the Mid LAD , then inflated to 14 DEMOND for 0:14 seconds. Inflation number: 2 The AB TREK 2.50X12 RX BALLOON was reinflated across the Mid LAD, to 14 DEMOND for 0:14 seconds. Inflation number: 3 The AB TREK 2.50X12 RX BALLOON was reinflated across the Mid LAD, to 14 DEMOND for 0:09 seconds. Balloon out. Inflation number : 4 A AB TREK 3.00X20 RX BALLOON was prepped and advanced across the Mid LAD , then inflated to 18 DEMOND for 0:40 seconds. Inflation number: 5 The AB TREK 3.00X20 RX BALLOON was reinflated across the Mid LAD, to 18 DEMOND for 0:49 seconds. Inflation number: 6 The AB TREK 3.00X20 RX BALLOON was reinflated across the Mid LAD, to 14 DEMOND for 0:35 seconds. Inflation number: 7 The AB TREK 3.00X20 RX BALLOON was reinflated across the Mid LAD, to 14 DEMOND for 0:37 seconds. Balloon out. ACT drawn. Results 220 seconds. Therapeutic limits - pre-heparin administration 90-150 seconds and monitoring heparin during a vascular procedure >250 seconds. Inflation number : 1 A AB TREK 2.50X30 RX BALLOON was prepped and advanced across the Dist LAD , then inflated to 8 DEMOND for 0:40 seconds. Inflation number: 2 The AB TREK 2.50X30 RX BALLOON was reinflated across the Dist LAD, to 14 DEMOND for 0:32 seconds. Inflation number: 3 The AB TREK 2.50X30 RX BALLOON was reinflated across the Dist LAD, to 8 DEMOND for 0:30 seconds. Inflation number: 4 The AB TREK 2.50X30 RX BALLOON was reinflated across the Dist LAD, to 14 DEMOND for 0:41 seconds. Inflation number: 8 The AB TREK 2.50X30 RX BALLOON was reinflated across the Mid LAD, to 16 DEMOND for 0:34 seconds. Inflation number: 9 The AB TREK 2.50X30 RX BALLOON was reinflated across the Mid LAD, to 12 DEMOND for 0:33 seconds. Balloon out. Inflation number : 10 A MDT NC EUPHORA RX 3.93F57RM BALLOON was prepped and advanced across the Mid LAD , then inflated to 12 DEMOND for 0:52 seconds. Inflation number: 11 The MDT NC EUPHORA RX 3.85B17KU BALLOON was reinflated across the Mid LAD, to 15 DEMOND for 0:48 seconds. Inflation number: 12 The MDT NC EUPHORA RX 3.99M65NR BALLOON was reinflated across the Mid LAD, to 10 DEMOND for 0:43 seconds. Balloon out. Inflation Number : 13 A MDT INTEGRITY 3.62o90IB BMS RX -Lot Number# [id number] exp date 01/15/2021 was prepped and advanced across the Mid LAD. The stent was deployed at 14 DEMOND for 1:23 seconds. Stent balloon out over wire. Inflation Number : 1 A MDT INTEGRITY 4.87t78UG BMS RX -Lot Number# [id number] exp date 12/20/2020 was prepped and advanced across the Prox LAD. The stent was deployed at 9 DEMOND for 0:31 seconds. Stent balloon out over wire. Inflation Number : 2 A MDT INTEGRITY 4.20m49AW BMS RX -Lot Number# [id number] exp date 11/15/2020 was prepped and advanced across the Prox LAD. The stent was deployed at 9 DEMOND for 1:02 seconds. Stent balloon out over wire. Pronto Catheter inserted over wire. Pronto catheter removed. [place] wire repositioned to Mid LAD. Pronto Catheter inserted over wire. Pronto Catheter activated. Pronto catheter removed. Results checked. Panumbra device prepped. Panumbra inserted over the wire. Panumbra device aspirating. Panumbra device removed slowly. Results checked. Panumbra inserted over the wire. Panumbra device removed slowly. Results checked. ACT drawn. Results 131 seconds. Therapeutic limits - pre-heparin administration 90-150 seconds and monitoring heparin during a vascular procedure >250 seconds. Inflation number : 14 A MDT NC EUPHORA RX 3.27Q37NL BALLOON was prepped and advanced across the Mid LAD , then inflated to 14 DEMOND for 0:30 seconds. Inflation number: 15 The MDT NC EUPHORA RX 3.61G56TP BALLOON was reinflated across the Mid LAD, to 18 DEMOND for 0:30 seconds. Inflation number: 16 The MDT NC EUPHORA RX 3.63U81KJ BALLOON was reinflated across the Mid LAD, to 20 DEMOND for 0:30 seconds. Results checked. Balloon out. Runthrough guidewire was advanced through the guide catheter to lesion in the distal LAD. Inventory is TR 180cm Runthrough NS extra floppy 0.014 wire. 3.00x10 Sprinter OTW inserted to deliver medication. 3.00x10 Sprinter OTW inserted to deliver medication. Inflation number : 17 A MDT SPRINTER 3.53J12ZE BALLOON was prepped and advanced across the Mid LAD , to deliver medication. Balloon out. Anesthesia Dr managing sedation. Wire out. Wire out. Anesthesiologist ordered blood transfusion. Transfusion of 1 unit started at this time. Verified by Zainab Solitario RN and anesthesiologist. J wire inserted. Guide catheter out. Hand injection for Groin shot. Physician scrubbed out. A Suture was successful obtaining hemostatsis at the Left Femoral artery insertion site. A Suture was successful obtaining hemostatsis at the Right Femoral vein insertion site. Sheath(s) sutured into position with 2-0 silk and sterile 4x4's and Op-site applied over the site. No oozing or signs and symptoms of hematoma noted. Arterial sheath flushed and connected to tranducer and pressure bag with heparinized saline. Venous sheath flushed and connected to Diprivan drip with extension tubing. Post Procedure: Pulses reassessed and unchanged. PERRLA. Strong, equal hand banner painter bilaterally. No VTE prophylaxis required. Contrast type used: Visipaque 320 mgI/mL, 500 mL bottle. PCI Indication: STEMI. Post-op diagnosis: STEMI. Complications: none. Estimated blood loss: 5mL-10mL. Procedure completed. Patient transferred by bed to ICU. Vital chart was stopped. Medication's Wasted: Heparin = 3000 units. Medication's Wasted: Other = nipride 49.6 mg. Breading Machine Tender Indications: Resuscitated Cardaic Arrest. Access Site Site: Right Femoral vein Sheath Size: 5 Fr Hemostasis Method: Suture Hemostasis Success: Successful Site: Left Femoral artery Sheath Size: 6 Fr Hemostasis Method: Suture Hemostasis Success: Successful Procedure Medications Start: 10:10 AM Stop: 10:10 AM Medication: Heparin Amount: 5000 units Route: I.V. Start: 10:12 AM Stop: 10:12 AM Medication: Heparin Amount: 2000 units Route: I.V. Start: 10:38 AM Stop: 10:38 AM Medication: Nitrogylcerin Amount: 200 mcg Route: I.C. Start: 10:56 AM Stop: 10:56 AM Medication: Aggrastat 12.5 mg/250 mL Amount: 31 ml Route: I.V. bolus Start: 10:56 AM Stop: 10:56 AM Medication: Aggrastat 12.5 mg/250 mL Amount: 11.2 ml/hr Route: I.V. drip Start: 11:11 AM Stop: 11:11 AM Medication: Heparin Amount: 1000 units Route: I.V. Start: 11:51 AM Stop: 11:51 AM Medication: Heparin Amount: 4000 units Route: I.V. Start: 12:05 PM Stop: 12:05 PM Medication: Nitroprusside (Nipride) Amount: 100 mcg Route: I.C. Start: 12:06 PM Stop: 12:06 PM Medication: Nitroprusside (Nipride) Amount: 100 mcg Route: I.C. Start: 12:15 PM Stop: 12:15 PM Medication: Nitroprusside (Nipride) Amount: 200 mcg Route: I.C. Start: 12:30 PM Stop: 12:30 PM Medication: Heparin Amount: 1500 units Route: I.V. I, the attending physician, have reviewed and verified all procedure medications. Yes, all medications given per verbal order Report Signatures Finalized by Israel Yeager MD on 03/29/2020 06:35 PM
--- NOTE | 2020-03-14 09:03 | PC.NURSE ---
CODE EVENT Responded to Code Blue call overhead. Upon entering room patient found to be in bed receiving chest compressions from ICU staff. Dr. Silverio and Dr. Amaya at bedside. Torsades present on Monitor. Two shocks delivered. Intubated per anesthesia. Uneventful intubation. Tolerated well. 2mg mag administered. Orders received from Nusrat for ABG, CBC, BMP, Troponin series, and STAT chest xray. After converting out of torsades, ST elevation present on telemetry. EKG obtained. STEMI called immediately. labor relations manager team now at bedside. Labs being obtained now. Xray at bedside. Patient now intubated. On zoll moitor. Awaiting transfer to test lab technician. Primary nurse Bailey to call family with update momentarily for update.
[2020-03-14 09:14] LABS: Glucose Point of Care 118 mg/dL (70-110)
--- NOTE | 2020-03-14 09:22 | PC.CHAP ---
Pastoral Care Encounter/Spiritual Assessment Type of Contact [] Declined traffic maintenance supervisor visit [] Patient/Family/Request visit [] Outpatient visit [] Follow-up visit [] Physician referral [x] Code/Alert [] Routine visit [] Staff referral [] Actively dying [] Patient sleeping [] Family support [] [] Out of room [] Palliative care [] [] Receiving care in room [] Pre-surgical visit [] Trauma [] Long length of stay [] ICU visit [] Other:ICU Code Relational/Emotional Strength [] Patient feels connected with others/family/visitors/staff [] Distress [] Loneliness/isolation [] Abandonment Spirituality of Patient [] Person of Amelia [] Attends Mormon of their Am[place] [] Believes in Prayer [] Reads Bible or Protestant materials [] There are Spiritual issues to be addressed Handstitching Machine Armhole Feller Interventions [x] Prayer [] Active listening [] Non-anxious presence [] Spiritual/emotional support [] Crisis/trauma care [] Spiritual counseling [] Bereavement support [] Provided bereavement packet [] Provided Bible/devotional materials [] Provided toy/stuffed animal, coloring book to patient or family member [] Provided Communion [] Anointing/[place] [] Salvation [] Completed spiritual assessment [] Other: Impact on Illness or Injury [] Angry [] Fearful [] Anxious [] Often cries [] Exhaustion [] Unable to work [] Unable to attend mosque [] Unable to walk/stand [] Unable to read [] Unable to drive [] Unable to eat/drink [] Unable to sleep [] Unable to be with family [] Patient intubated [] Other: Summary No family present Time spent with patient 30 min
[2020-03-14 09:32] LABS: Basophils % 0.1 %; Hematocrit 30.2 % (42.0-52.0); Hemoglobin 8.9 g/dL (11.7-16.6); Lymphocytes # 1.8 10^3/uL (0.8-4.8); Lymphocytes % 6.3 %; Mean Corpuscular HGB Conc 29.5 g/dL (30.0-36.0); Mean Corpuscular Hemoglobin 28.5 pg (28.0-34.0); Mean Corpuscular Volume 96.8 fL (80-94); Mean Platelet Volume 9.3 fL (7.4-10.4); Monocytes # 0.6 10^3/uL (0.2-0.9); Neutrophils # 25.87 10^3/uL (1.8-7.7); Neutrophils % 89.7 %; Nucleated Red Blood Cells # 0.1 /100WBC; Nucleated Red Blood Cells % 0.3 %; Platelet Count 428 10^3/cmm (130-400); Red Blood Count 3.12 10^6/uL (4.1-5.3); Red Cell Distribution Width 15.5 % (12.1-15.1); White Blood Count 28.8 10^3/uL (4.0-10.0)
--- NOTE | 2020-03-14 09:38 | PM.CONSULT ---
Providers/Reason For Consult Consulting Physican/Specialty*: Interventional cardiology Reason for Consult*: Cardiogenic shock, ST elevation AK, arrhythmia, status post resuscitation with cardiac arrest Attending Physician: Sandeep Silverio MD Primary Care Provider: Donald Dominguez MD History of Present Illness History of Present Illness Oscar Baumann is a 60 year old male underwent emergent abdominal surgery for splenic abscess and perforated bleeding duodenal ulcer surgery with history of alcoholism tobacco abuse COPD noncompliance extensive coronary artery disease and severe peripheral vascular disease. He was taking apixaban which was reversed during surgery. Post-Op patient went into V. fib arrest, resuscitated with DC cardioversion x2. Twelve-lead EKG post shock was suggestive of anterolateral ST elevation AK. I was alerted through STEMI pager. I saw immediately patient in the ICY, who is unstable with carcinogenic shock and persistent ST elevations. After discussing with surgery, medicine colleague and family we will take him to the Customer Development Manager for LHC/PCI if indicated. I have detailed discussion with the Jenny his daughter over the phone. Patient is very high risk for left heart cath/PCI in terms of bleeding with underlying comorbidities. We discussed 50% mortality during or after left heart cath/PCI with high chances of bleeding requiring multiple transfusions, arrhythmia, renal function deterioration leading to renal failure permanent or transient dialysis, worsening of congestive heart failure and in worse case scenario. Family and his daughter Jenny who has power of deoiling machine operator wishes to do everything for the patient accepted all risk benefit and would like to proceed with left heart cath/PCI. Review of Systems General: Reports: 10 or more systems reviewed and unremarkable except in HPI and below Const: Reports: body aches and fatigue; Denies: fever(s), chills, malaise or diaphoresis Eyes: Denies: change in vision, blurry vision, photophobia, eye discomfort, eye discharge, eye redness or yellow eyes ENMT: Denies: throat pain, enlarged tonsils, odynophagia, hoarseness, swelling of lips/tongue, ear or mastoid pain, ear discharge, change in hearing or nasal discharge Card: Denies: chest pain, palpitations, irregular heart rhythm, edema, lightheadedness, syncope, pre-syncope, dyspnea on exertion or orthopnea Resp: Denies: dyspnea, productive cough, non-productive cough, wheezing, hemoptysis or chest congestion GI: Reports: abdominal pain, nausea and melena; Denies: vomiting, hematemesis, coffee ground emesis, heartburn, diarrhea, constipation, GI cramping or hematochezia : Denies: flank pain, dysuria, urinary frequency, urinary urgency or hematuria Musc: Denies: neck pain, back pain, extremity pain, extremity swelling, joint pain, joint swelling, joint redness, joint warmth or joint stiffness Skin/Breast: Denies: rash, pruritus, erythema, skin pain or skin tenderness Neuro: Denies: headache(s), numbness in extremities, weakness in extremities, sensory changes, lack of coordination, difficulty walking, dizziness, vertigo, confusion, Slurred speech present or seizure-like activity Psych: Denies: anxiety Endo: Denies: polyuria Kenny/Lymph: Denies: easy bruising, easy bleeding, petechiae, purpura or enlarged lymph nodes All/Imm: Denies: urticaria, throat swelling, tongue swelling, facial swelling or acute wheezing Meds/Allergies Home Medications and Allergies Home Medications Medication Instructions Recorded Confirmed Last Taken Type isosorbide mononitrate 15 mg PO DAILY 09/19/19 03/13/20 03/13/20 History opshdi-[id number]-imssfvc 1 cap PO BID #180 cap 11/08/19 03/13/20 03/13/20 Rx 10,000-32,000-42,000 unit capsule,delayed rel fluoxetine 20 mg capsule 20 mg PO DAILY 30 Days #30 cap 12/15/19 03/13/20 03/13/20 Rx metoprolol tartrate 25 mg tablet 25 mg PO BID 30 Days #60 tab 12/15/19 03/13/20 03/13/20 Rx apixaban [Eliquis] 5 mg PO DAILY 03/13/20 03/13/20 03/13/20 History hydroxyzine HCl 25 mg PO BID 03/13/20 03/13/20 03/13/20 History lisinopril 5 mg PO DAILY PRN 03/13/20 03/13/20 Unknown History meclizine 12.5 mg PO TID PRN 03/13/20 03/13/20 Unknown History multivitamin [Daily-Tawanna] 1 tab PO DAILY 03/13/20 03/13/20 03/13/20 History nitroglycerin [Nitrostat] 0.4 mg SUBLINGUAL Q5M PRN 03/13/20 03/13/20 Unknown History vitamin B complex 1 tab PO DAILY 03/13/20 03/13/20 03/13/20 History Allergies Allergy/AdvReac Type Severity Reaction Status Date / Time hydromorphone [From Dilaudid] AdvReac Severe hallucinati Verified 03/13/20 21:35 on Current Medications Current Medications Generic Name Dose Route Start Last Admin Trade Name Freq PRN Reason Stop Dose Admin Hydromorphone HCl 2 mg 03/14/20 00:28 03/14/20 03:36 Hydromorphone 1 Mg/Ml Inj 1 Ml IVP 2 mg Q4H PRN Administration pain Sodium Chloride 1,000 mls @ 100 mls/hr 03/13/20 19:45 03/14/20 00:22 Sodium Chloride 0.9% IV 100 mls/hr .Q10H VINNIE Administration Dextrose/Sodium Chloride 1,000 mls @ 30 mls/hr 03/14/20 00:28 03/14/20 00:49 Dextrose 5%-Sod Chloride 0.45% IV 30 mls/hr .Q24H VINNIE Administration Imipenem/Cilastatin Sodium 500 100 mls @ 200 mls/hr 03/14/20 00:28 03/14/20 04:17 mg/ Sodium Chloride IV Infused Q12H VINNIE Infusion Vancomycin HCl 1,500 mg/ 250 mls @ 250 mls/hr 03/14/20 02:00 03/14/20 04:17 Sodium Chloride IV Infused Q12H VINNIE Infusion Protocol As Directed Pantoprazole Sodium 40 mg/ 100 mls @ 20 mls/hr 03/14/20 00:28 03/14/20 05:30 Sodium Chloride IV 8 mg/hr .Q5H VINNIE 20 mls/hr Administration 8 MG/HR PFSH Acute PFSH: Medical History COPD (chronic obstructive pulmonary disease) Coronary artery disease CVA (cerebral vascular accident) Residual left-sided weakness Encounter for observation for other suspected diseases and conditions ruled out Hypertension Surgical History H/O splenectomy Post PTCA Family History (Updated 11/12/20 @ 23:40 by Israel Liang MD) Other No pertinent family history Social History Smoking and tobacco status: current every day smoker cigarettes Packs smoked per day: 1 Years cigarettes smoked: 45 Quit status (tobacco): has tried quititng Number of times tried to quit tobacco: 5 Second hand smoke exposure: No Smoking risk assessment/counseling performed?: No Alcohol intake: current Alcohol intake frequency: 3 or more drinks per day Alcohol type: hard liquor Current gender identity: Male Vitals/I&O/Wt Last Vital Signs Temp 97.7 F 03/14/20 08:15 Pulse 121 H 03/14/20 08:33 Resp 23 H 03/14/20 08:15 BP 134/71 03/14/20 08:15 Pulse Ox 94 03/14/20 08:33 03/13/20 03/14/20 03/14/20 22:59 06:59 14:59 Intake Total 50 / 50 1538.333 / 1588.333 0 / 0 Output Total 400 / 400 270 / 270 Balance 50 / 50 1138.333 / 1188.333 -270 / -270 Weight last 48 hrs Weight 135 lb Physical Exam Narrative: EXAM NARRATIVE: GENERAL: Patient is thin frail pale looking intubated and medically paralyzed NECK: No jugular vein distension. HEENT: No cyanosis. No icterus. No pallor. HEART: Regular but tachycardic S1 and S2. Muffled sound cannot hear well due to respirator LUNGS: Decreased breath sounds bilaterally. ABDOMEN: Soft, cannot assess further due to paralytic CENTRAL NERVOUS SYSTEM: Cannot assess due to sedation EXTREMITIES: Lower extremities without edema bilaterally. Pulses not palpable in the lower extremities, pale mottled lower extremities cold bilaterally Urinary Catheter Management^: Kennedy: Cath Placed During This Visit: yes Urinary Catheter Date of Insertion: 03/14/20 Urinary Catheter Time of Insertion: 00:46 Data Micro: Micro: Microbiology 03/13/20 21:56 Blood Culture - Pr eliminary Blood SPECIMEN CHRISTIAN JORDIN 03/13/20 21:56 Blood Culture - Pr eliminary Blood SPECIMEN [facility] JORDIN A&P Assessment and plan (1) ST elevation AK (STEMI): Patient is in cardiogenic shock he is unstable with arrhythmia and ST elevation AK as above we will proceed with emergent left heart cath/PCI if indicated. Further plan will be advised. Status: Acute (2) Cardiogenic shock: Patient will be started on pressors and taken to the Customer Development Manager for emergent left heart cath/PCI to relieve ischemia. Status: Acute (3) Anemia: We will transfuse patient with couple of units Status: Acute (4) Peripheral Vascular Disease: Patient has severe peripheral vascular disease with nonpalpable both lower extremity and radial pulses. Hopefully with improvement in shock for that will be improved. Lower extremity appear to be mottled, we will continue to monitor and try to restore flow improving shock Status: Acute (5) COPD (chronic obstructive pulmonary disease): Status post intubation. Status: Acute (6) Subdiaphragmatic abscess: Status post laparotomy and emergent surgery Status: Acute Coding Level of Care Code New Pt Acute Utilities Ground Worker for Chg Fwd Patient Type New History Comprehensive Exam Comprehensive Medical Decision Making High Complexity Diagnoses ST elevation AK (STEMI) I21.3 Cardiogenic shock R57.0 Anemia D64.9 Peripheral Vascular Disease I73.9 COPD (chronic obstructive pulmonary disease) J44.9 Subdiaphragmatic abscess K65.1
--- NOTE | 2020-03-14 09:45 | W.PM.OPSUD ---
Surgery/Procedure H&P Update DATE OF PROCEDURE: March 14, 2020 DATE H&P PERFORMED: 03/14/20 H&P UPDATE INFORMATION: I have examined patient prior to procedure PREOP DIAGNOSIS: Cardiogenic shock, ST elevation PR, arrhythmia PLANNED PROCEDURE: Operation Date: 03/14/20 06:00 Proposed Procedures p Exploratory Laparotomy(Not Applicable) - Manuelito Berger MD AIRWAY EVAL/ANESTHESIA PLAN: ASA II and Risks, benefits & alternatives of sedation and/or procedure discussed
[2020-03-14 09:50] LABS: Anion Gap 17.8 (5-19); Blood Urea Nitrogen 14 mg/dL (8-23); Calcium 6.8 mg/dL (8.5-10.5); Carbon Dioxide 18 mmol/L (22-29); Chloride 105 mmol/L (98-107); Glomerular Filtration Rate 137.4 mL/min (90-130); Glucose 202 mg/dL (65-115); Magnesium 2.3 mg/dL (1.7-2.3); Osmolality Calculated 290 mOsm/kg (285-295); Potassium 3.8 mmol/L (3.5-5.1); Sodium 137 mmol/L (136-145)
[2020-03-14 09:51] LABS: Troponin T (5th) Once 33 ng/L (0-15)
--- NOTE | 2020-03-14 10:06 | PC.NURSE ---
family in ICU waiting room. Narcotics Agent updated them on his condition and location. Answered all questions and made comfortable. Let them know we would update them with all information.
[2020-03-14 10:08] LABS: Slide Review Slide Review Perform
[2020-03-14 10:36] LABS: INR 1.17 (0.8-1.2)
[2020-03-14 10:37] LABS: Fibrinogen 482 mg/dL (174-498); Partial Thromboplastin Time 36.9 SECONDS (23.9-36.7)
[2020-03-14 10:47] LABS: D Dimer 15.61 ug/mIFEU (0-0.59)
--- NOTE | 2020-03-14 13:00 | PC.NURSE ---
1300 when pt was brought back to floor, CHENTE Enciso from rags laborer reports that the pt Dorsalis pulses were not able to be dopplered. Feet are pale and cool to the touch.
--- NOTE | 2020-03-14 13:15 | PM.PN ---
Subjective Subjective: Interval history: History and physical reviewed. Patient had shortly returned from surgery, when he went into torsades. During the resuscitation he received 2 doses of epinephrine, 2 shocks, several rounds of CPR. He received magnesium as well. After achieving ROSC his pressure was adequate. An EKG was performed which demonstrated an ST elevation myocardial infarction. He went to Block Saw Operator where LAD stent was performed during a prolonged procedure. Prior to going to Block Saw Operator after CPR he did have purposeful movement. He is now sedated, on the ventilator in the ICU. Medications: Reviewed: Yes Vitals/I&O/Wt Last Vital Signs Temp 97.7 F 03/14/20 08:15 Pulse 121 H 03/14/20 08:33 Resp 18 03/14/20 11:52 BP 134/71 03/14/20 08:15 Pulse Ox 94 03/14/20 08:33 03/13/20 03/14/20 03/14/20 22:59 06:59 14:59 Intake Total 50 / 50 1538.333 / 1588.333 0 / 0 Output Total 400 / 400 270 / 270 Balance 50 / 50 1138.333 / 1188.333 -270 / -270 Weight last 48 hrs Weight 61.235 kg Physical Exam Narrative: EXAM NARRATIVE: General exam is no apparent distress Cardiovascular tachycardic, no murmur Lungs clear Abdomen is soft with positive bowel sounds. Multiple drains are noted Extremities no cyanosis clubbing or edema Urinary Catheter Management^: Kennedy: Cath Placed During This Visit: yes Urinary Catheter Date of Insertion: 03/14/20 Urinary Catheter Time of Insertion: 00:46 Data : 03/14/20 09:22 03/14/20 09:22 Micro: Microbiology 03/14/20 06:45 Gram Stain - Final Peritoneal Cavity 03/13/20 21:56 Blood Culture - Preliminary Blood SPECIMEN COLLECTED 03/13/20 21:56 Blood Culture - Preliminary Blood SPECIMEN COLLECTED A&P Assessment and plan (1) Subdiaphragmatic abscess: Directly postop subdiaphragmatic abscess drainage as well as perforated gastric ulcer repair. Protonix drip Imipenem, vancomycin Monitor closely for any bleeding secondary to cardiac intervention Fentanyl if needed for pain Status: Acute (2) ST elevation AR (STEMI): Status post LAD stent Cardiology plans to continue Aggrastat for 24 hours Will address beta-junie, statin, aspirin, etc. over the next 24 hours. Status: Acute (3) Cardiogenic shock: Monitor blood pressure closely Consider norepinephrine if mean blood pressure less than 65 Status: Acute (4) Respiratory failure: Secondary to cardiogenic shock, Code Diprivan for sedation Status: Acute (5) Anemia: Cardiology is transfusing 1 unit packed red blood cell. Repeat laboratory tomorrow Status: Acute Additional A&P Information COPD, DuoNeb Tobacco dependency Alcoholism. Thiamine Hypertension. Holding all medication currently. Abdominal aortic aneurysm, peripheral vascular disease. Full code DVT prophylaxis. Consider adding pharmacological tomorrow if not bleeding and no further procedures. Attestations Medical Necessity Statement*: Needs continued hospital stay secondary to ST elevation myocardial infarction, respiratory failure, perforated gastric ulcer Critical Care Time: 75 minutes of critical care time spent at bedside multiple visits during the day prior to this note during the code situation, afterwards, discussion with nursing, subspecialist, family regarding this patient with multiple comorbidities and high risk of . Coding Level of Care Code Acute Top Tile Decorator for Peri Villegas Diagnoses Subdiaphragmatic abscess K65.1 ST elevation AR (STEMI) I21.3 Cardiogenic shock R57.0 Respiratory failure J96.90 Anemia D64.9
[2020-03-14 13:23] LABS: ABG PH Result 7.29 (7.35-7.45); Alveolar-Arterial Oxygen Gradi 16.1 mmHg (5-10); Arterial Blood Gas Hematocrit 26.9 % (42-52); Base Excess ABG -6.2 mmol/L (-2.0-2.0); Blood Gas Operator Identificat AMH; Blood Gas Sample Type Arterial; Blood Gas Tidal Volume 0.45; Carboxyhemoglobin 0.9 %THgb (0.4-20.1); HCO3 ABG 19.8 mmol/L (22-26); HGB O2 Sat 99.2 % (95-100); Ionized Calcium Level - ABG 1.2 mmol/L (1.1-1.4); Methemoglobin 0.5 % (0.4-1.5); Oxygen Device VENT; Oxygen Saturation ABG > 100.0; Total Hemoglobin 8.8 g/dL (14-18)
[2020-03-14 13:59] LABS: ABG PCO2 37.7 mmHg (35-45); ABG PH Result 7.32 (7.35-7.45); Alveolar-Arterial Oxygen Gradi 20.6 mmHg (5-10); Arterial Blood Gas Hematocrit 29.3 % (42-52); Base Excess ABG -6.1 mmol/L (-2.0-2.0); Blood Gas Allen Test Pos; Blood Gas Operator Identificat CAK; Blood Gas Sample Site A LINE; Blood Gas Sample Type Arterial; Blood Gas Tidal Volume 0.45; Carboxyhemoglobin 0.7 %THgb (0.4-20.1); HCO3 ABG 19.4 mmol/L (22-26); HGB O2 Sat 99.2 % (95-100); Ionized Calcium Level - ABG 1.1 mmol/L (1.1-1.4); Methemoglobin 0.5 % (0.4-1.5); Oxygen Device VENT; Oxygen Saturation ABG > 100.0; Potassium Level - ABG 4.5 mmol/L (3.5-5.0); Total Hemoglobin 9.5 g/dL (14-18)
[2020-03-14] MEDS: heparin 5,000 unit/mL INJ 1 mL 5000 UNIT IVP (14:15)
[2020-03-14] MEDS: sodium chloride 0.9% SDV 10 mL 20 ML ×2 (14:15)
--- NOTE | 2020-03-14 14:23 | PC.NURSE ---
Pt feet continue to be cool and are starting to look mottled.
--- NOTE | 2020-03-14 14:32 | ECG_ITS ---
[facility] Test Date: 2020-03-14 Pat Name: Oscar Baumann Department: Room: ICU10 Gender: Male Chief Sales Officer: : 1960 Requested By: Israel Yeager Order Number: [id number] Adolfo MD: Travis Paris M.D. Measurements Intervals [place] Rate: 124 P: 73 KS: 141 QRS: 74 QRSD: 86 T: 82 QT: 329 QTc: 473 Interpretive Statements SINUS TACHYCARDIA LOW QRS VOLTAGE [QRS DEFLECTION < 0.5/1.0 mV IN LIMB/CHEST LEADS] SEPTAL MYOCARDIAL INFARCTION [40+ ms Q WAVE IN V1/V2], PROBABLY RECENT MARKED ST ELEVATION, CONSIDER ANTERIOR INJURY [MARKED ST ELEVATION W/O NORMALLY INFLECTED T WAVE IN V2-V5] ACUTE MT Compared to ECG 03/13/2020 20:32:00 Low QRS voltage now present Myocardial infarct finding now present ST (T wave) deviation now present Sinus rhythm no longer present T-wave abnormality no longer present Electronically Signed On 03-14-2020 20:18:35 SKIN FORMER by Travis Paris M.D. [id number]
--- NOTE | 2020-03-14 14:32 | ECG_ITS ---
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 Measurements Intervals [place] Rate: 126 P: 69 TX: 131 QRS: 70 QRSD: 79 T: 65 QT: 340 QTc: 494 Interpretive Statements SINUS TACHYCARDIA LOW QRS VOLTAGE IN PRECORDIAL LEADS [QRS DEFLECTION < 1.0 mV IN CHEST LEADS] SEPTAL MYOCARDIAL INFARCTION [40+ ms Q WAVE IN V1/V2], PROBABLY RECENT MARKED ST ELEVATION, CONSIDER ANTERIOR INJURY [MARKED ST ELEVATION W/O NORMALLY INFLECTED T WAVE IN V2-V5] ST ELEVATION, CONSIDER INFERIOR INJURY [MARKED ST ELEVATION W/O NORMALLY INFLECTED T WAVE IN II/aVF] ACUTE AL INTERPRETATION BASED ON A DEFAULT AGE OF 40 YEARS Compared to ECG 03/14/2020 08:57:27 No significant changes Electronically Signed On 03-14-2020 20:18:15 PRODUCTION SOUND MIXER by Travis Paris M.D. [id number]
[2020-03-14] MEDS: ipratropium-albuterol 3 mL Neb INHALATION (15:52)
[2020-03-14 17:29] LABS: Hematocrit 31.6 % (42.0-52.0); Hemoglobin 9.5 g/dL (11.7-16.6)
[2020-03-14 18:01] LABS: Troponin T (5th) Once 3394 ng/L (0-15)
[2020-03-15] VITALS (12 sets, daily range): BP systolic 82–101; BP diastolic 63–77; PULSE 0–128; RESP 18–19; TEMP 37.8; O2SAT 91–92
--- NOTE | 2020-03-15 00:24 | ECG_ITS ---
[facility] Test Date: 2020-03-15 Pat Name: Oscar Baumann Department: Room: ICU10 Gender: Male Dance Director: : 1960 Requested By: Israel Liang Order Number: [id number] Adolfo MD: Nancy Jarquin M.D. Measurements Intervals [place] Rate: 128 P: 78 MA: 124 QRS: 58 QRSD: 89 T: 0 QT: 211 QTc: 308 Interpretive Statements SINUS TACHYCARDIA LOW QRS VOLTAGE [QRS DEFLECTION < 0.5/1.0 mV IN LIMB/CHEST LEADS] ANTEROSEPTAL MYOCARDIAL INFARCTION [40+ ms Q WAVE IN V1-V4], POSSIBLY ACUTE ACUTE UT Compared to ECG 03/14/2020 09:25:21 ST (T wave) deviation no longer present Myocardial infarct finding still present Electronically Signed On 03-15-2020 18:55:10 PERMIT COORDINATOR by Nancy Jarquin M.D. [id number]
[2020-03-15] MEDS: phenylephrine inj 25 MG in sodium chloride 0.9% 250 ML 30.3 MG IV (00:33)
[2020-03-15] MEDS: propofol 1,000 MG/100 ML INJ 7.3 MG IV (00:36)
--- NOTE | 2020-03-15 00:37 | PC.NURSE ---
Patient is very unresponsive at this time. GCS of 3. Patients eyes are fixed and pupils are unequal. Patient does not respond to verbal or painful stimuli. Patients legs are mottled and it continues to spread up extremities to knees and groin. Pedal pulses cannot be dopplared or palpated. Urine output is minimal. Patient is on Phenylephrine at 50 mcg/min, propofol at 20 mcg/kg/min, NS at 75 mL/hr, aggrastat at 11.2 mL/hr, and protonix drip at 8mg/hr. Patients lung sounds are clear but diminished in all lobes. 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 Yeager wants to keep aggrastat running until patient is able to take oral meds. Continue care.
--- NOTE | 2020-03-15 00:49 | PC.NURSE ---
AGGRASTAT: Dr. Yeager wants to keep aggrastat running until patient is able to take plavix to prevent stent placement from becoming occluded and patient can be administered oral medications and they will be absorbed. Follow up with provider for more details.
[2020-03-15] MEDS: pantoprazole 40 MG in sodium chloride 0.9% (plus) 100 ML 20 MG IV (00:56)
[2020-03-15 01:35] LABS: ABG PCO2 35.8 mmHg (35-45); Alveolar-Arterial Oxygen Gradi 9.8 mmHg (5-10); Arterial Blood Gas Hematocrit 28.9 % (42-52); Base Excess ABG -18.9 mmol/L (-2.0-2.0); Blood Gas Allen Test Pos; Blood Gas Sample Type Arterial; Carboxyhemoglobin 0.9 %THgb (0.4-20.1); HCO3 ABG 10.2 mmol/L (22-26); Ionized Calcium Level - ABG 1.1 mmol/L (1.1-1.4); Methemoglobin 0.8 % (0.4-1.5); Oxygen Device VENT; Oxygen Saturation ABG 94.6; PO2 ABG 93.5 mmHg (80.0-100.0); Potassium Level - ABG 5.5 mmol/L (3.5-5.0); Total Hemoglobin 9.4 g/dL (14-18)
[2020-03-15 01:37] LABS: ABG PH Result 7.06 (7.35-7.45)
--- NOTE | 2020-03-15 01:47 | PC.NURSE ---
Called Daughter Jenny Baumann and updated her on patients condition and daughter changed patients code status to DNR.
--- NOTE | 2020-03-15 04:34 | PC.NURSE ---
Expiring event: Watching monitor's and patient showed a rhythm change at 2350. Upon event Refugio ELDRIDGE obtained an EKG and notified Dr. Yeager and continued to monitor patient. Patient continued to decline and mottling on skin increased all the way to waist level. No pulses were present to pedal or posterior tibial. Patients O2 saturation levels also began to decline. Daughter called at 0147 to talk to family about changing code status and to update family on patients condition. Family agreed to patient becoming an AND, due to decline in patients condition, family also received permission from boiler house inspector and Dr. Yeager to come see patient at end of life cycle, permission to enter facility was granted at 0155. Patients BP began to decline rapidly at 0219 and Rafi and Vasopressin were maxed out on rate per facility's protocols. BP at this time was 62/44 from the arterial line. At 0221 telemetry showed patient having a STEMI, Dr. Yeager notified and received orders for bicarb drip and patients condition. Family did not want to proceed with cath. 0224 Family arrived and BP from art line was 50/41, O2 level 76 on vent. 0227 BP from artery line 41/29, 67 O2. 0228 BP from art line 28/21. 0229 Asystole triggered on the monitor with family at bedside. 0232 Time of , patient . 0234 All IV lines, drips, and vent were shut off and family stayed at bedside with patient. [address] Liang and notified of patients expiration. [address] Petersen and notified him of patients expiration. 0245 steel division supervisor phoned [facility] and was on hold for 20 minutes or longer, MTS called boiler house inspector back at approximately 0400. [facility]TS released the body around 0445, they are referring to [facility], will transfer patient to [facility].
--- NOTE | 2020-03-15 05:25 | PC.NURSE ---
0515 Patient transferred to [facility] by warehouse delivery manager after receiving post mortem care on floor. 0517 Notified [facility] to notify them of and that body was in [facility].
--- NOTE | 2020-03-15 06:16 | PM.EVENT ---
Event Note Event Note: ICU notified night patient at 2:32 AM 03/15/2020
--- NOTE | 2020-03-15 15:41 | PM.PN ---
Subjective Subjective: Interval history: Last night before leaving I examined the patient post PCI he is status post PCI to proximal to mid LAD with multiple thrombectomy and finally presybeterian of DAWN II flow. Patient remained hypotensive on 2 pressors. He was septic with cardiogenic shock post surgery for subdiaphragmatic abscess and duodenal perforation ulcers. Patient was kept on IV antiplatelet. He maintained his hemoglobin. Throughout the night we tried different measures including multiple pressors IV fluid. He was not a good candidate for mechanical device due to severe peripheral vascular disease. Despite of that he continues to have downhill course with worsening of pH. Family was consulted and they according to the patient wishes would not like to do anything more than this and declared him DNR/DNI. Patient around 2:32 AM on 03/15/2020. I was called by nurse Huff in the from the ICU. Medications: Reviewed: Yes Vitals/I&O/Wt Last Vital Signs Temp 100.0 F H 03/15/20 00:00 Pulse 0 L 03/15/20 02:30 Resp 18 03/15/20 00:10 BP 91/68 03/15/20 02:15 Pulse Ox 92 03/15/20 00:30 03/15/20 03/15/20 03/15/20 06:59 14:59 22:59 Intake Total 2641.486 / 4090.819 Balance 2641.486 / 3445.819 Weight last 48 hrs Weight 135 lb Physical Exam Narrative: EXAM NARRATIVE: GENERAL: Patient is thin frail pale looking intubated and medically paralyzed NECK: No jugular vein distension. HEENT: No cyanosis. No icterus. No pallor. HEART: Regular but tachycardic S1 and S2. Muffled sound cannot hear well due to respirator LUNGS: Decreased breath sounds bilaterally. ABDOMEN: Soft, cannot assess further due to paralytic CENTRAL NERVOUS SYSTEM: Cannot assess due to sedation EXTREMITIES: Lower extremities without edema bilaterally. Pulses not palpable in the lower extremities, pale mottled lower extremities cold bilaterally Urinary Catheter Management^: Kennedy: Cath Placed During This Visit: yes Reason for Continuing Indwelling Catheter: Accurate Measurement of Urinary Output in Critically Ill Patients Urinary Catheter Date of Insertion: 03/14/20 Urinary Catheter Time of Insertion: 00:46 Data : 03/14/20 17:20 03/14/20 09:22 Micro: Microbiology 03/14/20 16:05 Gram Stain - Final Sputum - Endotracheal Tube Aspirate 03/13/20 21:56 Blood Culture - Preliminary Blood NEGATIVE TO DATE 03/13/20 21:56 Blood Culture - Preliminary Blood NEGATIVE TO DATE 03/14/20 06:45 Gram Stain - Final Peritoneal Cavity A&P Assessment and plan (1) ST elevation [place] (STEMI): Status post PCI with presybeterian of DAWN II flow. Patient was kept on Aggrastat he remains in cardiogenic shock on 3 pressors. He was declared DNR/DNI. Around 2:32 AM on 03/15/2020 patient and pronounced Status: Acute (2) Cardiogenic shock: Status: Acute (3) Anemia: Status: Acute (4) Peripheral Vascular Disease: Status: Acute (5) COPD (chronic obstructive pulmonary disease): Status: Acute (6) Subdiaphragmatic abscess: S Status: Acute Attestations Medical Necessity Statement*: Patient in the night as above Coding Level of Care Code Established Pt Acute Home Connect Lpn for Chg Fwd Patient Type Established History Comprehensive Exam Comprehensive Medical Decision Making High Complexity Diagnoses ST elevation [place] (STEMI) I21.3 Cardiogenic shock R57.0 Anemia D64.9 Peripheral Vascular Disease I73.9 COPD (chronic obstructive pulmonary disease) J44.9 Subdiaphragmatic abscess K65.1
--- NOTE | 2020-03-17 15:04 | PM.DDS ---
Discharge Providers DDS Date of Admission: 03/13/20 20:45 Date Summary Completed: 03/17/20 Attending Provider at Admission: Israel Liang MD Time of : 02:32 Attending Provider at Discharge: Sandeep Silverio MD Primary Care Provider: Donald Dominguez MD DS Diagnoses Hospital Diagnoses (1) ST elevation VA (STEMI): (2) Cardiogenic shock: (3) Anemia: (4) Peripheral Vascular Disease: (5) COPD (chronic obstructive pulmonary disease): (6) Subdiaphragmatic abscess: Reason for Visit Reason for Visit: ruq pain and black stools Summary Date and Time of Date of : 03/15/20 Time of : 02:32 Summary Summary: Oscar is a 60-year-old white male who presented to the emergency department with free air in his abdomen, and sepsis. He was diagnosed with a subdiaphragmatic abscess. He was placed on broad-spectrum antibiotics. Protonix drip. Admission to the ICU. Surgery was consulted, and took the patient to the operating room on March 14. Andexxa was given prior to surgery. Drainage of abscess occurred, with placement of drains. Exploratory laparotomy also demonstrated a perforated duodenal ulcer, which was closed. Following surgery he transferred back to the medical ICU. We will transfer was occurring he went into ventricular tachycardia, torsades. CPR ensued immediately along with defibrillation, and epinephrine. Intubation occurred. Patient had ROSC. In the process of evaluating this an EKG was done demonstrating acute ST elevation myocardial infarction. Cardiology was alerted. Patient proceeded to angiogram, and ultimately PCI was performed to mid LAD. Aggrastat continued after the procedure monitoring closely for bleeding. That night the patient had worsening perfusion requiring multiple pressors. Repeat EKG during the night demonstrated ST elevation. Cardiology met with the family discussing options, including repeat angiogram. Family at that point changed CODE STATUS to allow natural , not wanting any further procedures considering multiple comorbidities and very low likelihood of survival. Additional Data Advance directives?: No Discharge Plan Discharge Patient Disposition: At Medical Facility Condition: Stable Prescriptions: No Action Zenpep 10,000-32,000 -42,000 unit capsule,delayed release(DR/EC) 1 cap PO BID Qty: 180 RF: 1 Prozac 20 mg capsule 20 mg PO DAILY 30 Days Qty: 30 RF: 1 metoprolol tartrate 25 mg tablet 25 mg PO BID 30 Days Qty: 60 RF: 1 isosorbide mononitrate 30 mg Tablet Extended Release 24 Hr 15 mg PO DAILY RF: 0 lisinopril 5 mg Tablet 5 mg PO DAILY PRN (Reason: Blood Pressure) RF: 0 hydroxyzine HCl 25 mg tablet 25 mg PO BID RF: 0 Daily-Tawanna Tablet 1 tab PO DAILY RF: 0 meclizine 12.5 mg Tablet 12.5 mg PO TID PRN (Reason: Nausea And Vomiting) RF: 0 Nitrostat 0.4 mg Tablet, Sublingual 0.4 mg SUBLINGUAL Q5M PRN (Reason: Chest Pain) RF: 0 vitamin B complex Tablet 1 tab PO DAILY RF: 0 Eliquis 5 mg Tablet 5 mg PO DAILY RF: 0 Referrals: Donald Dominguez MD [Primary Care Provider] - Activity Restrictions/Additional Instructions: For information on [employer] (where Jenny could get paid to help care for you) contact: [address] [address] or call [place] [employer] [facility] [phone] Probable Cause of Probable cause of : Cardiac arrest DS Attestations Time Spent in /Discharge Care*: greater than 30 min Quality - AMI: AMI present?: Yes Quality - Stroke: CVA present?: No Quality - VTE: VTE present?: No Coding Level of Care Code Acute Carpenter Repair for g Fwd Diagnoses ST elevation VA (STEMI) I21.3 Cardiogenic shock R57.0 Anemia D64.9 Peripheral Vascular Disease I73.9 COPD (chronic obstructive pulmonary disease) J44.9 Subdiaphragmatic abscess K65.1
== END 2020-03-15 02:32 | disposition expired | DRG 853 ==
LOC: ER 21:14 → ICU 22:40
PROVIDERS: Internal Medicine Cardiovascular Disease; Surgery; Admitting Provider Internal Medicine; Emergency Provider Emergency Medicine; PCP Family Medicine; Visit Provider Internal Medicine
PROC: 0DU907Z Supplement Duodenum with Autologous Tissue Substitute, Open Approach (ICD-10-PCS; CPT 49000; principal; 2020-03-14 06:00)
PROC: 0DU907Z Supplement Duodenum with Autologous Tissue Substitute, Open Approach (ICD-10-PCS; 2020-03-14 06:00)
PROC: 027036Z Dilation of Coronary Artery, One Artery with Three Drug-eluting Intraluminal Devices, Percutaneous Approach (ICD-10-PCS; principal; 2020-03-14 09:30)
PROC: 027036Z Dilation of Coronary Artery, One Artery with Three Drug-eluting Intraluminal Devices, Percutaneous Approach (ICD-10-PCS; 2020-03-14 09:30)
DX: A41.9 Sepsis, unspecified organism (principal); K65.1 Peritoneal abscess; K26.5 Chronic or unspecified duodenal ulcer with perforation; I21.3 ST elevation (STEMI) myocardial infarction of unspecified site; R18.8 Other ascites; K86.0 Alcohol-induced chronic pancreatitis; K76.6 Portal hypertension; I69.954 Hemiplegia and hemiparesis following unspecified cerebrovascular disease affecting left non-dominant side; S37.012A Minor contusion of left kidney, initial encounter; Z90.81 Acquired absence of spleen; K66.8 Other specified disorders of peritoneum; I71.4 Abdominal aortic aneurysm, without rupture; Z87.11 Personal history of peptic ulcer disease; J44.9 Chronic obstructive pulmonary disease, unspecified; I25.10 Atherosclerotic heart disease of native coronary artery without angina pectoris; I10 Essential (primary) hypertension; F17.210 Nicotine dependence, cigarettes, uncomplicated; F10.20 Alcohol dependence, uncomplicated; Z91.5 Personal history of self-harm; X58.XXXA Exposure to other specified factors, initial encounter; K76.89 Other specified diseases of liver; I46.9 Cardiac arrest, cause unspecified; Z66 Do not resuscitate; I95.9 Hypotension, unspecified; D64.9 Anemia, unspecified; R57.0 Cardiogenic shock; I49.01 Ventricular fibrillation; I73.9 Peripheral vascular disease, unspecified; I48.91 Unspecified atrial fibrillation
CPT/HCPCS: 12345; 36415; 36416; 36600; 51702; 71045; 74177; 80048; 80051; 80053; 80307; 81003; 82330; 82805; 82962; 83605; 83690; 83735; 84484; 85007; 85014; 85018; 85025; 85347; 85362; 85378; 85384; 85610; 85730; 86850; 86900; 86920; 87040; 87070; 87075; 87077; 87186; 87205; 92941; 92973; 93005; 93454; 94002; 94640; 94799; 96375; 99283; A4570; C1725; C1757; C1769; C1876; C1887; C1894; C9113; C9290; J0171; J0610; J0743; J1170; J1644; J2250; J2270; J2370; J2405; J2543; J2704; J2710; J3010; J3246; J3370; J3411; J3475; J3490; J7030; J7050; J7169; J7799; P9016; Q9967; S0030